=== PATIENT | male | born 1965 | race Caucasian/White ===

== ENCOUNTER → 2017-09-06 15:26 | Outpatient (CLI) | payer MEDICAID, SELFPAY ==
--- NOTE | 2017-09-06 15:34 | XR_ITS ---
XR pelvis min 3V Ordering Physician: Garrett Pulido Patient Age: 52 years: Male HISTORY: ITS.REASON: RT GROIN PAIN Groin pain pelvic pain. Fell last week. TECHNIQUE: AP pelvis radiograph COMPARISON :. Right hip from 2011 FINDINGS Right hip intact stable since 2010. Hip joint space well maintained. Left hip included and unremarkable. Symmetric. Trace hypertrophic ridging superior rim of acetabulum. Unimpressive. The sacrum and iliac bone intact. Pubis and superior and inferior ramus appear intact. Moderate stool is seen to IMPRESSION: Osseous pelvis intact. AP view of hips intact.
== END ==
PROVIDERS: PCP Internal Medicine; Visit Provider Internal Medicine
DX: R10.31 Right lower quadrant pain (principal)
CPT/HCPCS: 72190

== ENCOUNTER 2017-10-19 06:36 | Day surgery (SDC) | payer MEDICAID, SELFPAY ==
[2017-10-19] VITALS (14 sets, daily range): BP systolic 114–143; BP diastolic 72–92; PULSE 61–88; RESP 12–18; TEMP 36.6; O2SAT 93–98; BMI 74.7
--- NOTE | 2017-10-19 08:18 | HMH.SCOPE ---
- Procedure: Date: 10/19/17 Procedure Performed:: Total colonoscopy to terminal ileum with polypectomy by hot snare and biopsy forceps at four locations Indications:: Patient is a 52-year-old white male. He was referred for colonoscopy. He has never had prior colonoscopy. He states that he has a lifelong history of hemorrhoid issues characterized as bleeding. He had significant bleeding recently after he had developed a pulled groin muscle strain. He does have a family history of colon cancer. Performing Provider:: Nura Mcgregor MD Referring Provider:: Garrett Pulido MD Sedation:: Versed 13 mg, fentanyl 200 mcg. Procedure:: Consent was obtained the patient was taken to same-day surgery endoscopy room. He was positioned in a lateral decubitus position. Anesthesia was achieved with titration of Versed and fentanyl. Digital examination was performed which revealed prominent internal hemorrhoids. Variable stiffness Olympus colonoscope was inserted via the anus. Within the rectum retroflexion was performed which revealed several moderately large adenomatous polyps. Colonoscope was advanced through the colon to the cecum without difficulty. Ileocecal valve and appendiceal orifice were identified. Colonoscope was advanced into the terminal ileum which appeared grossly normal. Colonoscope was withdrawn through the colon with careful surveillance. Please note that there was a small adenomatous appearing polyp in the cecum removed with hot snare. In the sigmoid colon there is a mild irregularity and this was biopsied labeled sigmoid lesion. In the proximal rectum there was moderate adenomatous appearing polyp removed with hot snare. In the distal rectum merely several centimeters above the dentate line there were a couple of moderate sized adenomatous appearing polyps removed with hot snare. One of these just inside the anal verge required completion and removal with hot biopsy forceps. There were a couple small distal rectal polyps removed with hot snare as well. He did have some prolapsing hemorrhoids. Colonoscope was withdrawn. Findings:: Several polyps, mostly rectal Prolapsing internal hemorrhoids Recommendations:: Likely plan for repeat colonoscopy within 3 years. Pending pathology. Bleeding likely from hemorrhoids. Complications:: None Estimated blood obtained (mL): 5
== END 2017-10-19 08:54 | disposition home or self-care (01) ==
LOC: OUTP 06:37
PROVIDERS: PCP Internal Medicine; Visit Provider Surgery
PROC: 0DJD8ZZ Inspection of Lower Intestinal Tract, Via Natural or Artificial Opening Endoscopic (ICD-10-PCS; CPT 45385; principal; 2017-10-19 07:30)
DX: Z12.11 Encounter for screening for malignant neoplasm of colon (principal); Z80.0 Family history of malignant neoplasm of digestive organs; K63.5 Polyp of colon; K62.1 Rectal polyp; K64.8 Other hemorrhoids
CPT/HCPCS: 45385; 45384; 99152; 99153

== ENCOUNTER → 2018-08-24 07:02 | Outpatient (CLI) | payer MEDICAID, SELFPAY ==
[2018-08-24 08:16] LABS: Alanine Aminotransferase 61 U/L (12-78); Albumin Level 4.1 gm/dL (3.4-5.0); Alkaline Phosphatase 100 U/L (46-116); Aspartate Amino Transferase 28 U/L (15-37); Bilirubin,Direct 0.2 mg/dL (0.0-0.2); Bilirubin,Indirect 0.9 mg/dL (0.0-0.9); Bilirubin,Total 1.1 mg/dL (0.2-1.0); Chol/HDL Ratio 5.8 (1-3.5); Cholesterol 157 mg/dL (140-200); HDL Cholesterol 27 mg/dL (27-67); LDL Cholesterol 69 mg/dL (0-130); Total Protein,Serum 6.8 gm/dL (6.4-8.2); Triglycerides 305 mg/dL (30-200); VLDL Cholesterol 61 mg/dL (0-40)
== END ==
PROVIDERS: Visit Provider Nurse Practitioner Acute Care
DX: E78.00 Pure hypercholesterolemia, unspecified (principal)
CPT/HCPCS: 36415; 80061; 80076

== ENCOUNTER 2019-12-21 12:41 | Emergency (ER) | payer MEDICAID, SELFPAY ==
[2019-12-21 12:50] VITALS: BP 152/88; PULSE 88; RESP 16; TEMP 36.8; O2SAT 96; BMI 33.9
--- NOTE | 2019-12-21 12:55 | XR_ITS ---
PROCEDURE: XR KNEE RT 3V CLINICAL INDICATION: pain COMPARISON: XR KNEE LT 3V from 12/21/2019 FINDINGS: No fracture or dislocation. No lytic or blastic change. There is normal mineralization. There is very slight decrease in the joint space medially suggesting mild osteoarthritic change. There is a small suprapatellar effusion Other findings:A nonspecific small calcific density is present in the popliteal region and may be due to small vascular calcification IMPRESSION: Mild osteoarthritic change with small suprapatellar effusion Dictated by: Junito Carrasquillo MD 12/21/2019 14:04 Electronically signed by Junito Carrasquillo MD in [place] 12/21/2019 14:04
--- NOTE | 2019-12-21 12:55 | XR_ITS ---
PROCEDURE: XR KNEE LT 3V CLINICAL INDICATION: pain, swelling The COMPARISON: XR KNEE RT 3V from 12/21/2019 FINDINGS: No fracture or dislocation. No lytic or blastic change. There is normal mineralization. The joint spaces are well-preserved. No significant degenerative/arthritic changes. No erosive changes evident. Other findings:None. IMPRESSION: Negative left knee Dictated by: Junito Carrasquillo MD 12/21/2019 14:03 Electronically signed by Junito Carrasquillo MD in [place] 12/21/2019 14:03
--- NOTE | 2019-12-21 14:31 | HMH.EDGENADL ---
ED Disposition Clinical Impression: Osteoarthritis of knees, bilateral Disposition: Home, Self-Care Condition on Discharge: Good Instructions: DI for Chronic Pain -- Adult Referrals: Garrett Pulido [Primary Care Provider] - - Critical Care Critical Care Time: No Attestation: On 12/21/19, the high probability of a clinically significant, sudden or life threatening deterioration of the following system(s) required my full and direct attention, intervention and personal management. The time I documented below is in addition to time spent performing reported procedures but includes the following listed in this critical care notation. Medical Decision Making - Medical Records Medical records reviewed: Yes: I reviewed the patient's medical records. - Toribio Inquiry Pt receiving controlled substance: No Vital Signs: 12/21/19 12:50 Temperature 98.2 F Temperature Source Oral Pulse Rate [Left Radial] 88 Respiratory Rate 16 Blood Pressure [Right Arm] 152/88 H Blood Pressure Mean [Right Arm] 109 Blood Pressure Position [Right Arm] Sitting 02 Sat by Pulse Oximetry 96 Oxygen Delivery Method Room Air - Lab Data Lab results reviewed: Yes: I reviewed the patient's lab results. Orders (Tests/Meds): ED MEDICATIONS Discontinued Medications Generic Name Dose Route Start Last Admin Trade Name Freq PRN Reason Stop Dose Admin Ketorolac Tromethamine 60 mg 12/21/19 13:31 12/21/19 13:32 Toradol 60mg/2ml Vial IM 12/21/19 13:32 60 mg ONCE ONE Administration - Radiology Data #1 Image(s): Knee Image Reviewed: Yes I reviewed the patient's radiology image w/the ED provider Preliminary Findings: Normal/NAD General Adult HPI - General Chief complaint: PAIN Stated complaint: pain in both legs Time Seen by Provider: 12/21/19 14:30 Mode of Arrival: Wheelchair Source of Information: Patient Limitations: No Limitations Description of Symptoms (Recalled from ER Triage Doc. by RN): to ed per pvt car with c/o madiha knee pain states chronic problem but worse over the last 3 weeks building a house . pt took tramadol from friend lastnight with no relief - History of Present Illness HPI narrative: 54-year-old gentleman comes in with bilateral knee pain. He has had chronic knee pain for quite some time secondary to arthritic conditions. 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 Presently today he does state that there is a feel swollen no redness or erythema they do not feel hot patient denies any fevers but he does state his pain is about 6 out of 10 classifies it is a full sensation. Relief is not ambulation exacerbating factors include any sort of movement or ambulation. Patient denies any other symptoms. - Related Data Home Medications Medication Instructions Recorded Confirmed famotidine 20 mg tablet 20 mg PO QHS 09/24/17 04/01/18 ibuprofen 600 mg tablet 600 mg PO Q4-6H PRN 09/24/17 04/01/18 lisinopril 20 1 tab PO BID 09/24/17 04/01/18 mg-hydrochlorothiazide 12.5 mg tablet Aspirin [Aspir 81] 81 mg PO DAILY 04/01/18 04/01/18 Atorvastatin Calcium [Atorvastatin 40 mg PO HS 04/01/18 04/01/18 40mg Tab] amlodipine 5 mg tablet 5 mg PO DAILY 04/08/18 Previous Rx's Medication Instructions Recorded bisoprolol fumarate 5 mg tablet 5 mg PO DAILY #30 tab 04/08/18 clopidogrel 75 mg tablet 75 mg PO DAILY #30 tab 04/08/18 pantoprazole 40 mg tablet,delayed 40 mg PO DAILY #30 tab 04/08/18 release Allergies Allergy/AdvReac Type Severity Reaction Status Date / Time No Known Allergies Allergy Verified 11/08/17 09:11 [facility] History - Hepatitis A Screen Drug use history?: No High risk sexual behaviors?: No History of sexually transmitted infection?: No Currently employed?: No Childcare worker?: No Do you have indoor plumbing?: Yes Do you have electricity?: Yes Attestation statement:: Tiffanie patiiliana
[2019-12-21 14:57] VITALS: BP 149/74; PULSE 74; RESP 16; TEMP 36.6; O2SAT 98
== END 2019-12-21 14:59 | disposition home or self-care (01) ==
PROVIDERS: Emergency Provider Family Medicine; PCP Internal Medicine
DX: M17.0 Bilateral primary osteoarthritis of knee (principal); I10 Essential (primary) hypertension; K21.9 Gastro-esophageal reflux disease without esophagitis; Z79.899 Other long term (current) drug therapy; F17.210 Nicotine dependence, cigarettes, uncomplicated
CPT/HCPCS: 20610 ×2; 73562; 96372; 99282

== ENCOUNTER → 2020-02-13 11:49 | Outpatient (CLI) | payer MEDICAID, SELFPAY ==
--- NOTE | 2020-02-13 12:03 | XR_ITS ---
PROCEDURE: XR KNEE RT 4V CLINICAL INDICATION: right knee pain COMPARISON: XR KNEE LT 3V from 12/21/2019 FINDINGS: There is mild narrowing of the medial compartment. There is no fracture or dislocation and the soft tissues are unremarkable. IMPRESSION: Mild narrowing of the medial compartment Dictated by: Moses Castillo 02/13/2020 16:37 Electronically signed by Moses Castillo in [place] 02/13/2020 16:37
== END ==
PROVIDERS: PCP Internal Medicine; Visit Provider Orthopaedic Surgery
DX: M25.561 Pain in right knee (principal)
CPT/HCPCS: 73564

== ENCOUNTER → 2020-02-21 13:41 | Outpatient (CLI) | payer MEDICAID, SELFPAY ==
--- NOTE | 2020-02-21 13:53 | XR_ITS ---
PROCEDURE: XR ORBIT BILATERAL MIN 4V CLINICAL INDICATION: RULE OUT METAL FOREIGN BODY FOR MRI COMPARISON: No exams were available for comparison TECHNIQUE: AP views are obtained of the orbits with the patient looking up and down. FINDINGS: No radio opaque foreign bodies evident. IMPRESSION: No radio opaque orbital foreign body identified. Dictated by: Junito Carrasquillo MD 02/21/2020 14:20 Electronically signed by Junito Carrasquillo MD in [place] 02/21/2020 14:20
== END ==
PROVIDERS: PCP Internal Medicine; Visit Provider Orthopaedic Surgery
DX: H05.53 Retained (old) foreign body following penetrating wound of bilateral orbits (principal)
CPT/HCPCS: 70200

== ENCOUNTER → 2020-03-25 15:40 | Outpatient (CLI) | payer BC, SELFPAY ==
--- NOTE | 2020-03-25 15:40 | MR_ITS ---
PROCEDURE: MR KNEE RT WO CON CLINICAL INDICATION: evaluate for meniscal tear Swelling [id number], medial sided knee pain, knee instability, no injury. COMPARISON: No exams were available for comparison TECHNIQUE: Routine multiplanar multi echo sequences are performed without gadolinium enhancement. FINDINGS: The cruciate ligaments are intact. The collateral ligaments appear intact. Patellar tendon has an unremarkable appearance. There is slight increased T2 signal involving the distal aspect of the quadriceps tendon and could be due to old injury versus tendinopathy/tendinosis. There is abnormal signal intensity involving the posterior horn of the medial meniscus with irregularity of the tibial surface of the meniscus suggesting a meniscal tear. The patellar cartilage is preserved. There is a small knee joint effusion and a small Heard's cyst which measures 2 cm. The body of medial meniscus is slightly extruded medially with mild osteoarthritic changes of the medial compartment of the knee. IMPRESSION: 1. There is some irregularity of the tibial surface of the posterior horn of the medial meniscus which could represent a small meniscal tear 2. Mild osteoarthritic change of the medial compartment with medial extrusion of the body of the medial meniscus with small knee joint effusion Dictated b Junito Carrasquillo MD 03/26/2020 18:37 Junito Carrasquillo MD in [place] 03/26/2020 18:37
== END ==
PROVIDERS: PCP Internal Medicine; Visit Provider Orthopaedic Surgery
DX: M25.561 Pain in right knee (principal); S83.206A Unspecified tear of unspecified meniscus, current injury, right knee, initial encounter; G89.29 Other chronic pain
CPT/HCPCS: 73721

== ENCOUNTER 2020-05-05 17:13 | Emergency (ER) | payer BC, SELFPAY ==
[2020-05-05 17:23] VITALS: BP 126/75; PULSE 95; RESP 16; O2SAT 98; BMI 34.3
[2020-05-05 17:39] VITALS: BP 124/76; PULSE 97; RESP 20; TEMP 36.7; O2SAT 98; BMI 34.2
--- NOTE | 2020-05-05 18:02 | HMH.EDUTC ---
[facility] [place] [facility] Disposition Clinical Impression: Knee pain Qualifiers: Chronicity: unspecified Laterality: right Qualified Code(s): M25.561 - Pain in right knee Disposition: Home, Self-Care Condition on Discharge: Good Instructions: Meniscal Tear, DI for Meniscal Tear, How To Perform RICE (Rest, Ice, Compress, Elevate) Additional Instructions: *RICE, Rest the extremity, Ice 15-20 minutes 3-4 times daily, Compress- wear the michael wrap as discussed as much as possible to help reduce swelling and pain, Elevate the extremity when at rest *Michael wrap is for support and help control swelling, use it except in the shower. Be sure that is not to tight but not to loose either *Elevate when resting *Ibuprofen every 6-8 hours as needed for pain an inflammation. If need something more can take Tylenol in between doses of Ibuprofen to help Immediately follow up with your family doctor for new or worsening of symptoms, or no noticeable improvement over the next 3-5 days Call Orthopedic office tomorrow to get appointment for further treatment and evaluation Follow up with Family Doctor if no improvement or any worsening of symptoms Return if needed Straight to ER If any life threatening symptoms Referrals: Garrett Pulido [Primary Care Provider] - As needed Lay Peterson MD [Physician] - As needed (Call office tomorrow for appointment) Time of Disposition: 18:16 Medical Decision Making - Toribio Inquiry Pt receiving controlled substance: No Toribio was queried for this patient: No Vital Signs: 05/05/20 17:23 05/05/20 17:39 05/05/20 18:17 Temperature 98.0 F 98.0 F Temperature Source Oral Pulse Rate 97 H Pulse Rate [Left Radial] 95 H 97 H Respiratory Rate 16 20 20 Blood Pressure 124/76 Blood Pressure [Right Arm] 126/75 124/76 Blood Pressure Mean [Right Arm] 92 92 Blood Pressure Source [Right Arm] Automatic Cuff Blood Pressure Position [Right Arm] Sitting Sitting 02 Sat by Pulse Oximetry 98 98 Oxygen Delivery Method Room Air Room Air Orders (Tests/Meds): ED MEDICATIONS Discontinued Medications Generic Name Dose Route Start Last Admin Trade Name Freq PRN Reason Stop Dose Admin Ketorolac Tromethamine 60 mg 05/05/20 18:07 05/05/20 18:16 Toradol 60mg/2ml Vial IM 05/05/20 18:08 60 mg ONCE ONE Administration [facility] [facility] HPI - General Stated complaint: Right knee pain Time Seen by Provider: 05/05/20 18:02 Mode of Arrival: Ambulatory Source of Information: Patient Limitations: No Limitations Description of Symptoms (Recalled from Triage Doc. by RN): PATIENT C/O RIGHT KNEE PAIN THAT STARTED TODAY. HE STATES HE HAS A RECENT HISTORY OF RIGHT KNEE PAIN D/T A TORN MENISCUS. HAS BEEN UNABLE TO FOLLOW UP WITH HIS ORTHO DOCTOR DUE TO HIS DOCTOR BEING OUT OF THE OFFICE HEENT Symptoms (Recalled from RN notes): No Resp Symptoms (Recalled from RN notes): No Skin Symptoms (Recalled from RN notes): No MS Symptoms (Recalled from RN notes): Yes Functional Status (Recalled from RN notes): WNL - History of Present Illness Provider Complaint: Patient states that he had a MRI done in [place] and was told by his PCP he had a Meniscus tear and he has been waiting to be contacted by Ortho for appointment for follow up State that he has been waiting and not hear back from anyone with an appointment States that for the last several days his knee has been hurting so he come in today to see if he could get a shot to get him through until he can see PCP tomorrow or call orthopedics - Related Data Home Medications Medication Instructions Recorded Confirmed famotidine 20 mg tablet 20 mg PO QHS 09/24/17 02/13/20 ibuprofen 600 mg tablet 600 mg PO Q4-6H PRN 09/24/17 02/13/20 lisinopril 20 1 tab PO BID 09/24/17 02/13/20 mg-hydrochlorothiazide 12.5 mg tablet amlodipine 5 mg tablet 5 mg PO DAILY 04/08/18 02/13/20 allopurinol 300 mg tablet 300 mg PO DAILY 02/13/20 02/13/20 carvedilol 25 mg tablet 25 mg PO BID 02/13/20 02/13/20 Previous R
[2020-05-05 18:17] VITALS: BP 124/76; PULSE 97; RESP 20; TEMP 36.7; O2SAT 98
== END 2020-05-05 18:20 | disposition home or self-care (01) ==
PROVIDERS: Emergency Provider Nurse Practitioner; PCP Internal Medicine
DX: M25.561 Pain in right knee (principal); K21.9 Gastro-esophageal reflux disease without esophagitis; I10 Essential (primary) hypertension; F17.210 Nicotine dependence, cigarettes, uncomplicated
CPT/HCPCS: 29505; 96372; 99203

== ENCOUNTER → 2020-12-28 07:53 | Outpatient (CLI) | payer OTHER, SELFPAY ==
[2020-12-28 08:15] LABS: Basophils # 0.1 K/mm3 (0-0.2); Basophils % 0.8 % (0.1-2.0); Eosinophils # 0.3 K/mm3 (0.0-0.4); Eosinophils % 3.6 % (0.1-12.0); Hematocrit 51.4 % (42.0-52.0); Hemoglobin 16.9 g/dL (14.1-18.0); Lymphocytes # 2.3 K/mm3 (0.7-4.5); Mean Corpuscular HGB Conc 32.9 g/dL (31.8-35.4); Mean Corpuscular Hemoglobin 30.9 pg (27.0-31.2); Mean Corpuscular Volume 93.9 fl (80-94); Mean Platelet Volume 7.3 fl (7.4-10.4); Monocytes # 0.5 K/mm3 (0.1-1.0); Monocytes % 5.5 % (1.7-9.3); Neutrophils # 5.8 K/mm3 (1.8-7.8); Neutrophils % 65.1 % (37.0-80.0); Platelet Count 189 K/mm3 (142-424); Red Blood Count 5.47 M/mm3 (4.60-6.20); Red Cell Distribution Width 13.2 % (11.5-17.5)
--- NOTE | 2020-12-28 08:17 | ECG_ITS ---
APPROVED REPORT Exam: Resting ECG HR:75 bpm ECG Measurements Heart Rate 75 AXES OK 158 P QRSd 92 QRS 195 QT 398 T 133 QTc 444 Conclusion Normal sinus rhythm Right superior axis deviation Incomplete right bundle branch block Abnormal ECG Electronically signed by : Yong Huang, 12/29/2020 20:29:40
[2020-12-28 09:02] LABS: Alanine Aminotransferase 21 U/L (12-78); Albumin Level 3.1 g/dl (3.5-5.0); Alkaline Phosphatase 90 U/L (38-126); Anion Gap 5.7 mEq/L (5-15); Aspartate Amino Transferase 27 U/L (17-59); Bilirubin,Direct 0.1 mg/dl (0.0-0.4); Bilirubin,Indirect 0.9 mg/dL (0.0-0.9); Bilirubin,Unconjugated 0.8 mg/dL (0.0-1.1); Blood Urea Nitrogen 11 mg/dl (9-20); Calcium 8.3 mg/dl (8.4-10.2); Carbon Dioxide 31 mmol/L (22.0-30.0); Chloride 106 mmol/L (98-107); Chol/HDL Ratio 7.6 (1-3.5); Cholesterol 257 mg/dl (140-200); Estimated Glomerular Filt Rate 117 ml/min (>60); GFR (African American) 141 ML/MIN (>60); Glucose 115 mg/dl (74-100); HDL Cholesterol 34 mg/dl (40-60); Potassium 3.7 mmoL/L (3.5-5.1); Sodium 139 mmol/L (136-145); Total Protein,Serum 5.5 g/dl (6.3-8.2); Triglycerides 389 mg/dl (30-150); VLDL Cholesterol 78 mg/dL (0-40)
== END ==
PROVIDERS: Visit Provider Internal Medicine Interventional Cardiology
DX: E78.5 Hyperlipidemia, unspecified (principal); R94.31 Abnormal electrocardiogram [ECG] [EKG]
CPT/HCPCS: 36415; 80048; 80061; 80076; 85025; 93005

== ENCOUNTER 2021-02-12 10:01 | Emergency (ER) | payer OTHER, SELFPAY ==
[2021-02-12 10:05] VITALS: BP 148/98; PULSE 80; RESP 19; TEMP 36.9; O2SAT 98; BMI 35.2
--- NOTE | 2021-02-12 10:33 | HMH.EDUTC ---
[facility] [place] Disposition Clinical Impression: Low back pain Qualifiers: Chronicity: unspecified Back pain laterality: left Sciatica presence: with sciatica Sciatica laterality: sciatica of left side Qualified Code(s): M54.42 - Lumbago with sciatica, left side Sciatica Qualifiers: Laterality: left Qualified Code(s): M54.32 - Sciatica, left side Disposition: Home, Self-Care Condition on Discharge: Good Instructions: DI for Low Back Pain, DI for Sciatica Additional Instructions: Go home and rest. It would be best if you rested tomorrow too. No heavy lifting. No twisting. Take the oral medications as directed. The muscle relaxer (cyclobenzaprine-flexeril) will make you drowsy, so don't drive or operate heavy machinery after taking it. Don't start the oral steroids (medrol dose pack) until tomorrow, since you had the shots in here today. Follow up with your regular doctor. GO TO THE ER FOR ANY WORSENING SYMPTOMS OR CONCERN, ESPECIALLY BOWEL OR BLADDER ISSUES, SADDLE AREA NUMBNESS, FEVER, ETC Prescriptions: Cyclobenzaprine HCl [Cyclobenzaprine 10mg Tab] 10 mg PO BIDP PRN #20 tab PRN Reason: Muscle Spasm Transmission Status: Received by [id number] methylPREDNISolone [Medrol] 4 mg PO DIRECTED 6 Days #21 tab.ds.pk Transmission Status: Received by [id number] Referrals: Garrett Pulido [Primary Care Provider] - Time of Disposition: 10:56 Medical Decision Making - Medical Records Medical records reviewed: No: I reviewed the patient's medical records. - Toribio Inquiry Pt receiving controlled substance: No Vital Signs: 02/12/21 10:05 02/12/21 10:45 Temperature 98.4 F 98.4 F Temperature Source Oral Pulse Rate 80 Pulse Rate [Right Brachial] 80 Respiratory Rate 19 19 Blood Pressure 148/98 H Blood Pressure [Right Arm] 148/98 H Blood Pressure Mean [Right Arm] 114 Blood Pressure Source [Right Arm] Automatic Cuff Blood Pressure Position [Right Arm] Sitting 02 Sat by Pulse Oximetry 98 Oxygen Delivery Method Room Air Orders (Tests/Meds): ED MEDICATIONS Discontinued Medications Generic Name Dose Route Start Last Admin Trade Name Freq PRN Reason Stop Dose Admin Ketorolac Tromethamine 60 mg 02/12/21 10:38 02/12/21 10:39 Ketorolac 60mg/2ml Vial IM 02/12/21 10:39 60 mg ONCE ONE Administration Methylprednisolone Sodium Succinate 125 mg 02/12/21 10:38 02/12/21 10:39 Methylprednisolone Sod Succ 125mg Vial IM 02/12/21 10:39 125 mg ONCE ONE Administration [facility] [place] HPI - General Stated complaint: possible pulled muscle in back, unknown origin Time Seen by Provider: 02/12/21 10:33 Mode of Arrival: Ambulatory Source of Information: Patient Limitations: No Limitations Description of Symptoms (Recalled from Triage Doc. by RN): PATIENT C/O PAIN IN LOWER BACK THAT RADIATES DOWN LEFT LEG. REPORTS PAIN STARTED WHEN HE BENT OVER WHILE WEED EATING YESTERDAY AFTERNOON HEENT Symptoms (Recalled from RN notes): No Resp Symptoms (Recalled from RN notes): No Skin Symptoms (Recalled from RN notes): No MS Symptoms (Recalled from RN notes): Yes Functional Status (Recalled from RN notes): WNL - History of Present Illness Provider Complaint: He states that since yesterday he has had low back pain that radiates down his left leg. - Related Data Home Medications Medication Instructions Recorded Confirmed famotidine 20 mg tablet 20 mg PO QHS 09/24/17 05/24/20 ibuprofen 600 mg tablet 600 mg PO Q4-6H PRN 09/24/17 05/24/20 lisinopril 20 1 tab PO BID 09/24/17 05/24/20 mg-hydrochlorothiazide 12.5 mg tablet amlodipine 5 mg tablet 5 mg PO DAILY 04/08/18 05/24/20 allopurinol 300 mg tablet 300 mg PO DAILY 02/13/20 05/24/20 carvedilol 25 mg tablet 25 mg PO BID 02/13/20 05/24/20 Previous Rx's Medication Instructions Recorded bisoprolol fumarate 5 mg tablet 5 mg PO DAILY #30 tab 04/08/18 clopidogrel 75 mg tablet 75 mg PO DAILY #30 tab 04/08/18 Cyclobenzaprine H
[2021-02-12 10:45] VITALS: BP 148/98; PULSE 80; RESP 19; TEMP 36.9; O2SAT 98
== END 2021-02-12 11:00 | disposition home or self-care (01) ==
PROVIDERS: Emergency Provider Nurse Practitioner Family; PCP Internal Medicine
DX: M54.42 Lumbago with sciatica, left side (principal); I10 Essential (primary) hypertension; K21.9 Gastro-esophageal reflux disease without esophagitis; Z79.899 Other long term (current) drug therapy
CPT/HCPCS: 96372; 99202; G0463

== ENCOUNTER 2021-02-14 15:34 | Emergency (ER) | payer OTHER, SELFPAY ==
[2021-02-14] VITALS (10 sets, daily range): BP systolic 151–178; BP diastolic 93–113; PULSE 74–85; RESP 14–20; TEMP 36.7–36.8; O2SAT 95–98; BMI 35.9
--- NOTE | 2021-02-14 15:35 | HMH.EDGENADL ---
ED Disposition Clinical Impression: Muscle spasm Disposition: Home, Self-Care Condition on Discharge: Good Referrals: Garrett Pulido [Primary Care Provider] - 3 days Time of Disposition: 17:39 - Critical Care Critical Care Time: No Attestation: On , the high probability of a clinically significant, sudden or life threatening deterioration of the following system(s) required my full and direct attention, intervention and personal management. The time I documented below is in addition to time spent performing reported procedures but includes the following listed in this critical care notation. Medical Decision Making - Medical Records Medical records reviewed: Yes: I reviewed the patient's medical records. - Toribio Inquiry Pt receiving controlled substance: No Vital Signs: 02/14/21 15:34 02/14/21 17:03 02/14/21 17:06 Temperature 98.1 F Temperature Source Oral Pulse Rate 85 78 Pulse Rate [Right Radial] 82 Respiratory Rate 18 20 14 Blood Pressure 178/113 H 164/104 H Blood Pressure [Right Arm] 163/103 H Blood Pressure Mean 139 124 Blood Pressure Mean [Right Arm] 123 Blood Pressure Source [Right Arm] Manual Cuff/ Doppler Blood Pressure Position Blood Pressure Position [Right Arm] Supine 02 Sat by Pulse Oximetry 97 98 98 Oxygen Delivery Method Room Air Room Air Room Air 02/14/21 17:11 Temperature Temperature Source Pulse Rate 75 Pulse Rate [Right Radial] Respiratory Rate 14 Blood Pressure 151/105 H Blood Pressure [Right Arm] Blood Pressure Mean Blood Pressure Mean [Right Arm] Blood Pressure Source [Right Arm] Blood Pressure Position Supine Blood Pressure Position [Right Arm] 02 Sat by Pulse Oximetry 98 Oxygen Delivery Method Room Air Orders (Tests/Meds): ED MEDICATIONS Discontinued Medications Generic Name Dose Route Start Last Admin Trade Name Fantasmaq PRN Reason Stop Dose Admin Ketamine HCl 35 mg 02/14/21 16:29 02/14/21 16:56 Ketamine 500mg/10ml Vial IV 02/14/21 16:30 35 mg ONCE ONE Administration Ketorolac Tromethamine 30 mg 02/14/21 15:44 02/14/21 15:53 Ketorolac 30mg/Ml Vial IM 02/14/21 15:45 30 mg ONCE ONE Administration Orphenadrine Citrate 60 mg 02/14/21 15:44 02/14/21 15:53 Orphenadrine Citrate 60mg/2ml Vial IM 02/14/21 15:45 60 mg ONCE ONE Administration Medical Decision Narrative: 55yo M evaluated for low back pain. Patient is acutely uncomfortable on initial evaluation. He is moving all extremities and answers questions appropriately. He has 2+ distal pulses. He is able to move all extremities. Patient is provided Norflex and Toradol IM. Patient states treatment has not been effective at all. His girlfriend is at bedside and concerned he is going to have a stroke or heart attack if he does not get something else for pain. The patient is rolling around shouting. Of note, he complains of pain in his left lower leg but is kicking the left lower leg along with the right leg to demonstrate his pain. Patient's heart rate on the monitor is currently 82 and his O2 saturations are 100%. His blood pressure is elevated but if he continues to flex and use his left arm to pull on the bed rails. Patient was treated with IV ketamine 35 mg. He feels much better at this time. Have discussed with the patient that I do not treat sciatica or muscle spasms with opiates as they are not very effective. General Adult HPI - General Stated complaint: L sided sciatic pain Time Seen by Provider: 02/14/21 15:35 Mode of Arrival: EMS - History of Present Illness HPI narrative: 55yo M presents the emergency department via EMS secondary to left sciatic pain. Patient reports he was seen at the urgent treatment center yesterday and provided pain shot and a steroid shot with no improvement in his symptoms. Him to chiropractor yesterday and today but they were unable to adjust him secondary to pain and muscle spasm. He reports today
--- NOTE | 2021-02-14 16:26 | PC.NURSE ---
pt family came to nurses station reporting the medication given to pt has not improved pts pain. Notified ER MD, no new orders obtained
== END 2021-02-14 17:58 | disposition home or self-care (01) ==
PROVIDERS: Emergency Provider Family Medicine; PCP Internal Medicine
DX: M62.838 Other muscle spasm (principal); M54.42 Lumbago with sciatica, left side; I10 Essential (primary) hypertension; K21.9 Gastro-esophageal reflux disease without esophagitis; F17.210 Nicotine dependence, cigarettes, uncomplicated; Z79.899 Other long term (current) drug therapy
CPT/HCPCS: 96374; 99282

== ENCOUNTER 2021-02-17 09:54 | Emergency (ER) | payer OTHER, SELFPAY ==
[2021-02-17 09:54] VITALS: BP 123/85; PULSE 79; RESP 18; TEMP 36.7; O2SAT 97; BMI 35.2
--- NOTE | 2021-02-17 09:55 | XR_ITS ---
PROCEDURE: XR PELVIS 1-2V CLINICAL INDICATION: back pain, non-traumatic COMPARISON: DX PELCM XR pelvis min 3V from 09/06/2017 TECHNIQUE: XR Pelvis AP View FINDINGS: No fracture or dislocation is evident. No significant degenerative change. No lytic or blastic change. IMPRESSION: No acute findings. Dictated by: Junito Carrasquillo MD 02/17/2021 10:40 Junito Carrasquillo MD in [place] 02/17/2021 10:40
--- NOTE | 2021-02-17 09:55 | XR_ITS ---
PROCEDURE: XR LUMBAR SPINE 2-3V CLINICAL INDICATION: back pain, non-traumatic COMPARISON: No exams were available for comparison FINDINGS: No fracture or dislocation. There is minimal anterolisthesis of L4 on L5 of 2 mm. Minimal endplate osteophytes are present at L3-L4. there is a small calcific density overlying the upper pole of the left kidney at 4 mm and 1 overlying the mid lower pole at 3 mm. IMPRESSION: 1. Mild degenerative changes lumbar spine. 2. Left nephrolithiasis suspected Dictated by: Junito Carrasquillo MD 02/17/2021 10:40 Junito Carrasquillo MD in [place] 02/17/2021 10:40
--- NOTE | 2021-02-17 09:56 | HMH.EDGENADL ---
ED Disposition Clinical Impression: Radicular pain Disposition: Home, Self-Care Condition on Discharge: Good Referrals: Garrett Pulido [Primary Care Provider] - () Time of Disposition: 11:08 - Critical Care Critical Care Time: No Attestation: On , the high probability of a clinically significant, sudden or life threatening deterioration of the following system(s) required my full and direct attention, intervention and personal management. The time I documented below is in addition to time spent performing reported procedures but includes the following listed in this critical care notation. Medical Decision Making - Medical Records Medical records reviewed: Yes: I reviewed the patient's medical records. - Toribio Inquiry Pt receiving controlled substance: No Vital Signs: 02/17/21 09:54 02/17/21 10:49 Temperature 98.1 F Temperature Source Oral Pulse Rate 78 Pulse Rate [Right] 79 Respiratory Rate 18 18 Blood Pressure 132/86 Blood Pressure [Right Arm] 123/85 Blood Pressure Mean [Right Arm] 97 02 Sat by Pulse Oximetry 97 98 Oxygen Delivery Method Room Air Room Air Orders (Tests/Meds): ED MEDICATIONS Discontinued Medications Generic Name Dose Route Start Last Admin Trade Name Freq PRN Reason Stop Dose Admin Ketorolac Tromethamine 15 mg 02/17/21 11:06 02/17/21 11:13 Ketorolac 30mg/Ml Vial IM 02/17/21 11:07 15 mg ONCE ONE Administration Orphenadrine Citrate 30 mg 02/17/21 11:06 02/17/21 11:12 Orphenadrine Citrate 60mg/2ml Vial IM 02/17/21 11:07 30 mg ONCE ONE Administration - Radiology Data #1 Image(s): Pelvis, Hip Image Reviewed: Yes I reviewed the patient's radiology results, Yes I reviewed the patient's radiology image Preliminary Findings: Normal/NAD Medical Decision Narrative: 55yo M evaluated for continued radicular pain of his left lower extremity. Patient has normal movement about all joints in his lower left extremity. He has 2+ dorsalis pedis and posterior tibialis pulse. Sensation is intact. The limb is not cold. X-rays are obtained despite no traumatic indication. These x-rays are negative on my read as well as over read by radiology. We will retreat the patient with Toradol and Norflex. Will call patient's PCP, Dr. Pulido, to arrange close follow-up and further evaluation. Patient is very angry with a level of care he is received in the fact that he cannot be seen by his PCP today. Patient states has been coming here for 45 years and has never received good care. Case discussed with Dr. Pulido. He agrees there is no indication for emergent MRI. Request the patient call his office to arrange a follow-up appointment. General Adult HPI - General Stated complaint: Back Pain Time Seen by Provider: 02/17/21 09:56 Mode of Arrival: EMS - History of Present Illness HPI narrative: 55yo M returns to the emergency department for ongoing left lower extremity pain. Patient reports his symptoms have not improved after being seen in the emergency department few days ago. He reports going to his PCPs office today and called to be seen but they stated they could not help him at that time because he was lying in the parking lot. He reports taking muscle relaxers at home without improvement. Denies any new trauma. - Related Data Home Medications Medication Instructions Recorded Confirmed famotidine 20 mg tablet 20 mg PO QHS 09/24/17 05/24/20 ibuprofen 600 mg tablet 600 mg PO Q4-6H PRN 09/24/17 05/24/20 lisinopril 20 1 tab PO BID 09/24/17 05/24/20 mg-hydrochlorothiazide 12.5 mg tablet amlodipine 5 mg tablet 5 mg PO DAILY 04/08/18 05/24/20 allopurinol 300 mg tablet 300 mg PO DAILY 02/13/20 05/24/20 carvedilol 25 mg tablet 25 mg PO BID 02/13/20 05/24/20 Previous Rx's Medication Instructions Recorded bisoprolol fumarate 5 mg tablet 5 mg PO DAILY #30 tab 04/08/18 clopidogrel 75 mg tablet 75 mg PO DAILY #30 tab 04/08/18 Cyclobenzaprine HCl
[2021-02-17 10:49] VITALS: BP 132/86; PULSE 78; RESP 18; O2SAT 98
[2021-02-17 11:15] VITALS: BP 141/85; PULSE 74; RESP 16; TEMP 36.7; O2SAT 98
== END 2021-02-17 11:35 | disposition home or self-care (01) ==
PROVIDERS: Emergency Provider Family Medicine; PCP Internal Medicine
DX: M54.16 Radiculopathy, lumbar region (principal); I10 Essential (primary) hypertension; K21.9 Gastro-esophageal reflux disease without esophagitis; F17.210 Nicotine dependence, cigarettes, uncomplicated
CPT/HCPCS: 72100; 72170; 99282

== ENCOUNTER 2021-11-24 13:15 | Emergency (ER) | payer OTHER, MEDICARE, SELFPAY ==
[2021-11-24 14:32] VITALS: BP 0/0; PULSE 0; RESP 0; TEMP -17.7; TEMP 0
== END 2021-11-24 14:32 | disposition left against medical advice (07) ==
LOC: UTC 13:17
PROVIDERS: Emergency Provider Nurse Practitioner Family; PCP Pediatrics
DX: Z53.21 Procedure and treatment not carried out due to patient leaving prior to being seen by health care provider (principal)

== ENCOUNTER → 2022-02-21 08:13 | Outpatient (CLI) | payer MEDICARE, OTHER, SELFPAY ==
[2022-02-21 09:12] LABS: Chloride 106 mmol/L (98-107); Potassium 3.9 mmoL/L (3.5-5.1); Sodium 135 mmol/L (136-145)
[2022-02-21 09:15] LABS: Anion Gap 7.9 mEq/L (5-15); Blood Urea Nitrogen 17 mg/dl (9-20); Calcium 8.7 mg/dl (8.4-10.2); Carbon Dioxide 25 mmol/L (22.0-30.0); Estimated Glomerular Filt Rate 87 ml/min (>60); GFR (African American) 105 ML/MIN (>60); Glucose 145 mg/dl (74-100)
== END ==
PROVIDERS: Visit Provider Internal Medicine Interventional Cardiology
DX: I10 Essential (primary) hypertension (principal)
CPT/HCPCS: 80048

== ENCOUNTER → 2022-10-21 11:31 | Outpatient (CLI) | payer MEDICARE, OTHER, SELFPAY ==
[2022-10-21 12:47] LABS: Chloride 107 mmol/L (98-107)
[2022-10-21 12:48] LABS: Potassium 4.4 mmoL/L (3.5-5.1); Sodium 136 mmol/L (136-145)
[2022-10-21 12:50] LABS: Blood Urea Nitrogen 27 mg/dl (9-20); Estimated Glomerular Filt Rate 62 ml/min (>60); GFR (African American) 75 ML/MIN (>60)
[2022-10-21 12:51] LABS: Anion Gap 12.4 mEq/L (5-15); Calcium 8.4 mg/dl (8.4-10.2); Carbon Dioxide 21 mmol/L (22.0-30.0); Chol/HDL Ratio 6.9 (1-3.5); Cholesterol 201 mg/dl (140-200); Glucose 109 mg/dl (74-100); HDL Cholesterol 29 mg/dl (40-60)
[2022-10-21 12:53] LABS: Triglycerides 418 mg/dl (30-150)
[2022-10-21 13:00] LABS: NT Pro Brain Natriuretic Pep. 67.3 pg/mL (0-125)
[2022-10-21 13:02] LABS: Direct LDL Cholesterol 109.52 mg/dL (100-129)
== END ==
PROVIDERS: PCP Pediatrics; Visit Provider Internal Medicine Interventional Cardiology
DX: I11.0 Hypertensive heart disease with heart failure (principal); E78.00 Pure hypercholesterolemia, unspecified
CPT/HCPCS: 36415; 80048; 80061; 83880

== ENCOUNTER → 2023-02-01 08:25 | Outpatient (CLI) | payer MEDICARE, OTHER, SELFPAY ==
[2023-02-01 09:55] LABS: Basophils # 0.1 K/mm3 (0-0.2); Basophils % 0.4 % (0.1-2.0); Eosinophils # 0.3 K/mm3 (0.0-0.4); Eosinophils % 2.4 % (0.1-12.0); Hematocrit 45.2 % (42.0-52.0); Hemoglobin 14.9 g/dL (14.1-18.0); Lymphocytes # 2.7 K/mm3 (0.7-4.5); Lymphocytes % 20.7 % (10-50); Mean Corpuscular Hemoglobin 31.7 pg (27.0-31.2); Mean Corpuscular Volume 96.2 fl (80-94); Mean Platelet Volume 8.4 fl (7.4-10.4); Monocytes # 0.6 K/mm3 (0.1-1.0); Monocytes % 4.8 % (1.7-9.3); Neutrophils # 9.5 K/mm3 (1.8-7.8); Neutrophils % 71.7 % (37.0-80.0); Platelet Count 234 K/mm3 (142-424); Red Cell Distribution Width 14.2 % (11.5-17.5); White Blood Count 13.2 K/mm3 (4.8-10.8)
[2023-02-01 10:31] LABS: Alanine Aminotransferase 37 U/L (12-78); Albumin Level 4.2 g/dl (3.5-5.0); Alkaline Phosphatase 121 U/L (38-126); Anion Gap 14.9 mEq/L (5-15); Aspartate Amino Transferase 34 U/L (17-59); Bilirubin,Indirect 0.4 mg/dL (0.0-0.9); Bilirubin,Total 0.4 mg/dl (0.2-1.3); Bilirubin,Unconjugated 0.4 mg/dL (0.0-1.1); Blood Urea Nitrogen 24 mg/dl (9-20); Carbon Dioxide 24 mmol/L (22.0-30.0); Chloride 104 mmol/L (98-107); Chol/HDL Ratio 8.7 (1-3.5); Cholesterol 227 mg/dl (140-200); Estimated Glomerular Filt Rate 62 ml/min (>60); GFR (African American) 75 ML/MIN (>60); Glucose 103 mg/dl (74-100); HDL Cholesterol 26 mg/dl (40-60); Potassium 3.9 mmoL/L (3.5-5.1); Sodium 139 mmol/L (136-145); Total Protein,Serum 6.6 g/dl (6.3-8.2)
[2023-02-01 10:33] LABS: Triglycerides 455 mg/dl (30-150)
== END ==
PROVIDERS: PCP Pediatrics; Visit Provider Nurse Practitioner Family
DX: E78.00 Pure hypercholesterolemia, unspecified (principal)
CPT/HCPCS: 36415; 80048; 80061; 80076; 85025

== ENCOUNTER → 2023-05-03 07:05 | Outpatient (CLI) | payer MEDICARE, OTHER, SELFPAY ==
[2023-05-03 07:39] LABS: Basophils # 0.1 K/mm3 (0-0.2); Basophils % 0.4 % (0.1-2.0); Eosinophils # 0.4 K/mm3 (0.0-0.4); Eosinophils % 2.8 % (0.1-12.0); Hematocrit 49.4 % (42.0-52.0); Hemoglobin 15.9 g/dL (14.1-18.0); Lymphocytes # 2.8 K/mm3 (0.7-4.5); Lymphocytes % 20.2 % (10-50); Mean Corpuscular HGB Conc 32.1 g/dL (31.8-35.4); Mean Corpuscular Volume 93.6 fl (80-94); Mean Platelet Volume 8.4 fl (7.4-10.4); Monocytes # 0.7 K/mm3 (0.1-1.0); Neutrophils # 10.1 K/mm3 (1.8-7.8); Neutrophils % 71.6 % (37.0-80.0); Platelet Count 195 K/mm3 (142-424); Red Blood Count 5.28 M/mm3 (4.60-6.20); Red Cell Distribution Width 14.3 % (11.5-17.5); White Blood Count 14.1 K/mm3 (4.8-10.8)
[2023-05-03 08:12] LABS: Alanine Aminotransferase 44 U/L (12-78); Albumin Level 4.2 g/dl (3.5-5.0); Alkaline Phosphatase 114 U/L (38-126); Anion Gap 14.3 mEq/L (5-15); Aspartate Amino Transferase 37 U/L (17-59); Bilirubin,Direct 0.1 mg/dl (0.0-0.4); Bilirubin,Indirect 0.5 mg/dL (0.0-0.9); Bilirubin,Total 0.6 mg/dl (0.2-1.3); Bilirubin,Unconjugated 0.5 mg/dL (0.0-1.1); Blood Urea Nitrogen 16 mg/dl (9-20); Calcium 8.9 mg/dl (8.4-10.2); Carbon Dioxide 28 mmol/L (22.0-30.0); Chloride 104 mmol/L (98-107); Chol/HDL Ratio 3.5 (1-3.5); Cholesterol 98 mg/dl (140-200); Estimated Glomerular Filt Rate 69 ml/min (>60); GFR (African American) 83 ML/MIN (>60); Glucose 115 mg/dl (74-100); HDL Cholesterol 28 mg/dl (40-60); Potassium 3.3 mmoL/L (3.5-5.1); Sodium 143 mmol/L (136-145); Total Protein,Serum 6.6 g/dl (6.3-8.2); Triglycerides 200 mg/dl (30-150); VLDL Cholesterol 40 mg/dL (0-40)
[2023-05-03 08:23] LABS: Direct LDL Cholesterol 43.95 mg/dL (100-129)
== END ==
PROVIDERS: PCP Pediatrics; Visit Provider Internal Medicine Interventional Cardiology
DX: Z79.899 Other long term (current) drug therapy (principal); E78.00 Pure hypercholesterolemia, unspecified
CPT/HCPCS: 36415; 80048; 80061; 80076; 85025

== ENCOUNTER 2023-11-23 07:39 | Outpatient (CLI) | payer OTHER, SELFPAY ==
[2023-11-23 09:42] LABS: Basophils # 0.2 K/mm3 (0-0.2); Basophils % 1.4 % (0.1-2.0); Eosinophils # 0.5 K/mm3 (0.0-0.4); Eosinophils % 3.4 % (0.1-12.0); Hematocrit 52.4 % (42.0-52.0); Hemoglobin 17.1 g/dL (14.1-18.0); Lymphocytes # 3.1 K/mm3 (0.7-4.5); Lymphocytes % 23.6 % (10-50); Mean Corpuscular HGB Conc 32.6 g/dL (31.8-35.4); Mean Corpuscular Volume 101.1 fl (80-94); Mean Platelet Volume 8.6 fl (7.4-10.4); Monocytes # 0.6 K/mm3 (0.1-1.0); Monocytes % 4.7 % (1.7-9.3); Neutrophils # 8.9 K/mm3 (1.8-7.8); Neutrophils % 66.9 % (37.0-80.0); Platelet Count 209 K/mm3 (142-424); Red Blood Count 5.18 M/mm3 (4.60-6.20); Red Cell Distribution Width 14.2 % (11.5-17.5); White Blood Count 13.3 K/mm3 (4.8-10.8)
[2023-11-23 10:50] LABS: Alanine Aminotransferase 49 U/L (12-78); Alkaline Phosphatase 83 U/L (38-126); Anion Gap 12.3 mEq/L (5-15); Aspartate Amino Transferase 42 U/L (17-59); Bilirubin,Direct 0.2 mg/dl (0.0-0.4); Bilirubin,Indirect 0.8 mg/dL (0.0-0.9); Bilirubin,Unconjugated 0.8 mg/dL (0.0-1.1); Blood Urea Nitrogen 22 mg/dl (9-20); Calcium 9.3 mg/dl (8.4-10.2); Carbon Dioxide 28 mmol/L (22.0-30.0); Chloride 104 mmol/L (98-107); Chol/HDL Ratio 7.2 (1-3.5); Cholesterol 246 mg/dl (140-200); Estimated Glomerular Filt Rate 69 ml/min (>60); GFR (African American) 83 ML/MIN (>60); Glucose 118 mg/dl (74-100); HDL Cholesterol 34 mg/dl (40-60); Potassium 3.3 mmoL/L (3.5-5.1); Sodium 141 mmol/L (136-145); Total Protein,Serum 6.4 g/dl (6.3-8.2)
[2023-11-23 11:00] LABS: Triglycerides 429 mg/dl (30-150)
[2023-11-23 11:02] LABS: Direct LDL Cholesterol 110.23 mg/dL (100-129)
== END 2023-11-23 23:59 ==
LOC: LAB 07:41
PROVIDERS: Visit Provider Internal Medicine Interventional Cardiology
DX: I10 Essential (primary) hypertension (principal); E78.00 Pure hypercholesterolemia, unspecified; Z79.899 Other long term (current) drug therapy
CPT/HCPCS: 36415; 80048; 80061; 80076; 85025

== ENCOUNTER 2024-07-10 08:10 | Outpatient (CLI) | payer OTHER, SELFPAY ==
--- OUTSIDE RECORDS SUMMARY | 2024-07-10 08:32 | XMS_ITS | Referral Summary ---
Author Organization [facility] Address [address] [place] [address] Phone Care Team Providers Care Auto Apprentice Mechanic Name Role Phone Dashawn Morgan MD Primary Care Provider Encounters Date Type Department Care Team Description 05/10/2024 Travel 05/10/2024 9:00 PM EDT - 05/10/2024 9:43 PM EDT Emergency [facility] Emergency [address] [place] [address] Shawn Hwang MD Foreign body in skin (Primary Dx) Discharge Disposition: Home or Self Care from Last 3 Months Allergies No known active allergies Medications No known medications Social History Tobacco Use Types Packs/Day Years Used Date Smoking Tobacco: Every Day Cigarettes Smokeless Tobacco: Never Tobacco Cessation:Ready to Q uit: Not Asked; Counseling Given: Not Answered Alcohol Use Standard Drinks/Week Comments Not Currently 0 (1 standard drink = 0.6 oz pur e alcohol) Sex and Gender Information Value Date Recorded Sex Assigned at Not on file Legal Sex Male 8:36 PM EDT Gender Identity Not on file Sexual Orientation Not on file Last Filed Vital Signs Vital Sign Reading Time Taken Comments Blood Pressure 138/90 05/10/2024 8:39 PM EDT Pulse 90 05/10/2024 8:38 PM EDT Temperature 37 ??C (98.6 ??F) 05/10/2024 8:39 PM EDT Respiratory Rate 18 05/10/2024 8:38 PM EDT Oxygen Saturation 97% 05/10/2024 8:38 PM EDT Inhaled Oxygen Concentration - - Weight 117.9 kg (260 lb) 05/10/2024 8:39 PM EDT Height 182.9 cm (6') 05/10/2024 8:39 PM EDT Body Mass Index 35.26 05/10/2024 8:39 PM EDT Plan of Treatment Not on file Insurance [employer] MEDICARE PPO MR Care Teams Auto Apprentice Mechanic Relationship Specialty Start Date End Date Dashawn Morgan MD [address] [facility] [place] [address] PCP - General Internal Medicine 05/10/24
--- OUTSIDE RECORDS SUMMARY | 2024-07-10 08:32 | XMS_ITS | Encounter Summary ---
Author Organization [employer] Address [address] [place] [id number] Care Team Providers Care Experienced Truck Driver Name Role Phone Unavailable Primary Care Provider Unavailabl e Encounter Details Date Type Department Care Team (Late st Contact Info) Description 03/19/2022 Transcribed Document [facility] [place] [facility] [place] [address] ProviderHector MD [address] [place] [address] Social History Tobacco Use Types Packs/Day Years Used Date Smoking Tobacco: Never Assessed Sex and Gender Information Value Date Recorded Sex Assigned at Male 02/17/2022 9:03 PM CDT Legal Sex Male 9:03 PM CDT Gender Identity Male 02/17/2022 9:03 PM CDT Sexual Orientation Not on file documented as of this encounter Miscellaneous Notes * [employer]ner Conversion Note - Historical ProviderMD - 03/19/2022 2:06 PM CDT DATE OF SERVICE: 03/19/2022 SLEEP MEDICINE FOLLOWUP VISIT PRIMARY PROVIDER: Dr. Kathryn Shanks. HISTORY OF PRESENT ILLNESS: The patient returns for followup today regarding his sleep apnea and insomnia. He had a recent study showing severe obstructive sleep apnea with an AHI of 80. He is now managed with AutoPAP 6 to 20 cm of water pressure using a full-face mask. [facility] is his durable medical equipment provider. Review and interpretation of his download shows that he is well treated. He is 73% compliant. His AHI is 0.3. His primary complaint is he still only sleeps about 3 hours at night. He says he goes to sleep in 15 to 30 minutes, but awakens after 3 hours and frequently cannot go back to sleep, some nights it is only 2 hours that he sleeps. 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 The only thing that has worked in the past was [employer]. PAST MEDICAL HISTORY: The patient's medications have been changed. He is now on spironolactone. He is hypertensive and has congestive heart failure. SOCIAL HISTORY: He continues to smoke 2 packs of cigarettes a day. He does smoke when he awakens in the middle of the night. He does not drink alcohol. PHYSICAL EXAMINATION: VITAL SIGNS: Weight is 267, BMI is 36. Respirations 20, O2 sats 97, blood pressure 125/73, pulse is 81. HEENT: He does have a large zamorano and narrow mandibular arch. Mallampati 3. LUNGS: Clear to auscultation. HEART: Without murmurs. EXTREMITIES: He does have 2+ pedal edema. IMPRESSION: 1. Obstructive sleep apnea. 2. Hypertension. 3. Congestive heart failure. 4. Obesity. 5. Insomnia. RECOMMENDATION: 1. Continue with the use of positive airway pressure therapy. Orders were sent to [facility] for new mask, tubing, and filters. 2. We will try trazodone 100 to 200 mg at bedtime for sleep maintenance insomnia. 3. Follow up here annually or sooner if he has difficulties in the interval. /[id number] Lucille MD ZAIDA Vazquez/AQ / PW / MODL /[id number] CC: Dr. Kathryn Shanks documented in this encounter Plan of Treatment Not on file documented as of this encounter Visit Diagnoses Not on filedocumented in this encounter
--- OUTSIDE RECORDS SUMMARY | 2024-07-10 08:32 | XMS_ITS | Encounter Summary ---
Author Organization [facility] Address [address] [place] [id number] Care Team Providers Care Grain Sacker Name Role Phone Unavailable Primary Care Provider Unavailabl e Encounter Details Date Type Department Care Team (Late st Contact Info) Description 01/21/2022 Transcribed Document [facility] [place] Medicine [facility] [place] [address] ProviderHector MD [address] [place] [address] Social History Tobacco Use Types Packs/Day Years Used Date Smoking Tobacco: Never Assessed Sex and Gender Information Value Date Recorded Sex Assigned at Male 02/17/2022 9:03 PM CDT Legal Sex Male 9:03 PM CDT Gender Identity Male 02/17/2022 9:03 PM CDT Sexual Orientation Not on file documented as of this encounter Miscellaneous Notes * Cerner Conversion Note - Hector ProviderMD - 01/21/2022 9:38 AM CDT DATE OF SERVICE: 01/17/2022 POLYSOMNOGRAPHY DIAGNOSTIC REPORT ADDITIONAL REFERRING PROVIDER: Dr. Kathryn Shanks. MONTAGE: F3-M2, F4-1, C3-M2, O1-M2, O2-M1, LOC-M2, JOSEFINA-M2, submental EMG (3 leads), L tibialis anterior, R tibialis anterior, ECG, SpO2, nasal airflow (pressure), oral airflow (thermal), thoracic respiratory effort and abdominal respiratory effort. POLYSOMNOGRAPHY METHOD: Continuous recording of electroencephalographic, oculographic, submental EMG, limb movements, pulse oximetry, electrocardiogram using modified lead II torso placement, airflow via nasal pressure and thermistor and respiratory effort occurred during the patient's habitual sleep time. Each 30 second epoch was scored according to The AASM Manual for the Scoring of Sleep and Associated Events using the 1B 4% hypopnea rule. Capnography was recorded. A CPAP titration was tried. He was started on 5 cm of water pressure with a full-face mask, but the patient stated he could never wear this at home and did not want to try it here in the office. He took the mask off and the study was finished as a diagnostic study. RESULTS: 1. Sleep architecture: Total recording time is 360 minutes. Total sleep time is 330 minutes. Sleep efficiency is 30%. The patient awakened frequently during the night. 2. Sleep continuity arousal index was elevated at 53. 3. Respiratory data: Apnea plus hypopnea index was 80 with 141 hypopneas and 3 apneas. O2 sats were below 88% for 21 minutes of the study. End-tidal CO2 average was 36 with highest end-tidal CO2 of 46. 4. Cardiac: Average heart rate was 75 with no arrhythmias. 5. Limb movements were not increased. IMPRESSION: 1. Very poorly maintained sleep with frequent awakening. 2. Severe obstructive sleep apnea. The patient appeared to wake up frequently secondary to respiratory events, but was unwilling to try positive airway pressure therapy. FOLLOWUP: The patient will be seen in followup to discuss treatment options. /[id number] Lucille Laxmi Ivy MD PW/AQ / ZAIDA / BEBA /[id number] CC: Kathryn Shanks MD Electronically signed by [facility] Conversion Textile Colorist Formulator Cerner at 12/07/2022 6:43 PM CDT documented in this encounter Plan of Treatment Not on file documented as of this encounter Visit Diagnoses Not on filedocumented in this encounter
--- OUTSIDE RECORDS SUMMARY | 2024-07-10 08:32 | XMS_ITS | Encounter Summary ---
Author Organization [facility] yste Address [address] [place] [address] Care Team Providers Care Software Maintenance Engineer Name Role Phone Garrett Pulido MD Primary Care Provider [phone] Reason for Visit * Auth/Cert Specialty Diagnoses / Procedures Referred By Contac t Referred To Contact Diagnoses . Procedures RI TOTAL KNEE ARTHROPLASTY TOTAL KNEE ARTHROPLASTY RIGHT Referral ID Status Reason Start Date Expiration Date Visits Re quested Visits Authorized [id number] 1 1 Encounter Details Date Type Department Care Team (Late st Contact Info) Description 06/23/2021 9:41 AM EDT - 06/23/2021 12:07 PM EDT Surgery [facility] OR [address] [place] [address] Dashawn Escobar MD [address] [place] [address] [address] [place] [address] TOTAL KNEE ARTHROPLASTY RIGHT [08578 (CPT??)] Social History Tobacco Use Types Packs/Day Years Used Date Smoking Tobacco: Every Day Cigarettes Smokeless Tobacco: Never Alcohol Use Standard Drinks/Week Comments No 0 (1 standard drink = 0.6 oz pur e alcohol) Sex and Gender Information Value Date Recorded Sex Assigned at Not on file Legal Sex Male 8:09 AM EDT Gender Identity Not on file Sexual Orientation Not on file documented as of this encounter Last Filed Vital Signs Vital Sign Reading Time Taken Comments Blood Pressure 120/81 06/23/2021 12:05 PM EDT Pulse 71 06/23/2021 12:05 PM EDT Temperature 36.7 ??C (98.1 ??F) 06/23/2021 11:56 AM E DT Respiratory Rate 18 06/23/2021 12:05 PM EDT Oxygen Saturation 95% 06/23/2021 12:05 PM EDT Inhaled Oxygen Concentration - - Weight 119 kg (262 lb) 06/23/2021 8:00 AM EDT Height 182.9 cm (6') 06/23/2021 8:00 AM EDT Body Mass Index 35.53 06/23/2021 8:00 AM EDT documented in this encounter Discharge Instructions * Discharge Instr - Activity* Shahnaz Tafoya RN - 06/23/2021 4:33 PM EDT Weight bearing as tolerated to R knee. Use ice for increase in pain and swelling. * Discharge Instr - Diet* Shahnaz Tafoya RN - 06/23/2021 4:33 PM EDT Resume regular diet * Attachments The following attachments cannot be sent through Care Everywhere. * Total Knee Replacement (Monegasque) * How to Use Cold Therapy (Monegasque) * Fall Prevention in the Home Adult (Monegasque) * Continuous Peripheral Nerve Block Infusion Self-Care (Monegasque) * Oxycodone tablets or capsules (Monegasque) documented in this encounter Medications at Time of Discharge allopurinol (ZYLOPRIM) 300 MG tablet Take 300 mg by mouth Daily. amLODIPine (NORVASC) 10 MG tablet Take 10 mg by mouth Daily. aspirin 81 MG EC tablet Take 1 tablet by mouth Daily. Take 4 aspirin tablets tomorrow , then 1 daily till finished. 34 tablet 06/23/2021 3:20 PM EDT 06/24/2021 atorvastatin (LIPITOR) 40 MG tablet Take 1 tablet by mouth Daily. 90 tablet 3 04/01/2018 carvedilol (COREG) 25 MG tablet Take 25 mg by mouth 2 (Two) Times a Day With Meals. clopidogrel (PLAVIX) 75 MG tablet Take 1 tablet by mouth Daily. 30 tablet 06/25/2021 hydroCHLOROthiaz karin (HYDRODIURIL) 25 MG tablet Take 25 mg by mouth Daily. lisinopril (PRINIVIL,ZESTRI L) 40 MG tablet Take 40 mg by mouth 2 (two) times a day. meloxicam (MOBIC) 15 MG tablet Take 15 mg by mouth Daily As Needed for Mild Pain . omeprazole (priLOSEC) 20 MG capsule Take 40 mg by mouth Daily. oxyCODONE (Roxicodone) 5 MG immediate release tabletIndication s:S/P total knee arthroplasty, right Take 1 tablet by mouth Every 4 (Four) Hours As Needed for Moderate Pain . 40 tablet 06/23/2021 3:20 PM EDT 06/23/2021 potassium chloride 10 MEQ CR tablet Take 20 mEq by mouth Daily. Ropivacine HCl-NaCl (NAROPIN)Indicat ions:Acute Pain 20 mg/hr by Peripheral Nerve route Continuous. Indications: Acute Pain 06/23/2021 acetaminophen (TYLENOL) 500 MG tablet Take 2 tablets by mouth Every 8 (Eight) Hours for 7 days. Take every 8 hours as needed after 1 week 42 tablet 06/23/2021 docusate sodium (COLACE) 100 MG capsule Take 1 capsule by mouth 2 (Two) Times a Day for 15 days. 30 capsule 06/23/2021 3:20 PM EDT 06/23/2021 documented as of this encounter Progress Notes * Cash Deleon CRNA - 06/23/2021 5:10 PM EDT [facility] Post Op Call Patient Name: Sukhdeep Hall : 1965 Date of Discharge: 06/23/2021 Nerve Cath Post Op Call: Analgesia:Good Pain Score:3/10 Side Effects:None Patient Controlled ON Q pump infusion rate: 10ml/hr Catheter Plan:Will continue with plan at home without changes Patient/Family instructed to call PRODUCT SAFETY TESTER anesthesia provider for any questions or problems. Patient Follow Up: * Jesenia Breen CRNA - 06/23/2021 5:10 PM EDT [facility] Post Op Call Patient Name: Sukhdeep Hall : 1965 Date of Discharge: 06/23/2021 Nerve Cath Post Op Call: Analgesia:Fair Pain Score:7/10 (outside of the knee) Side Effects:None Catheter Site:clean Patient Controlled ON Q pump infusion rate: 10ml/hr Catheter Plan:Will continue with plan at home without changes and The patient was instructed to call PRODUCT SAFETY TESTER Anesthesia provider for any questions or problems Patient/Family instructed to call PRODUCT SAFETY TESTER anesthesia provider for any questions or problems. Patient Follow Up: Tylenol use: acetaminophen use Patient states leg is very swollen with pain outside of the knee. Pt also states top of knee pain, pt was instructed to turn Arrow pump to rate 14mL/hr for two hours and then turn it back down to rate of 10mL/hr. Pt states understanding. Pt is taking Tylenol and Pain medication. Phone carcass splitter was very poor. Very difficult to hear the conversation. * Jesenia Breen CRNA - 06/23/2021 5:10 PM EDT [facility] Nerve Cath Post Op Call Patient Name: Sukhdeep Hall : 1965 Date of Discharge: 06/23/2021 Nerve Cath Post Op Call: Catheter Plan:Patient/Family member report nerve catheter previously discontinued, tip intact Patient/Family instructed to call PRODUCT SAFETY TESTER anesthesia provider for any questions or problems. Patient Follow Up: documented in this encounter H&P Notes * Rashmi Owens MD - 06/23/2021 1:43 PM EDT Patient Name: Sukhdeep Hall : 1965 DOS: 06/23/2021 Attending: Dashawn Escobar MD Primary Care Provider: Garrett Pulido MD Chief complaint: Right knee Pain. Subjective Patient is a pleasant 55 y.o. male presented for scheduled surgery by Dr. Escobar. Per his note( 55-year-old with endstage right knee osteoarthritic symptoms and corresponding x-raysshowing near complete loss medial joint space. No sustained relief from reasonable non-operative management. Nearly equal symptoms with the left knee which has lesser grade arthritic change. Risks benefits and indications and rationale for right total knee arthroplasty discussed at length with patient. Patient is??made aware of possible mechanical or infectious complications for TKA as well as possible perioperative medical complication. Patient signs his own consent after all questions are answered.). Seen in his room after surgery, doing fairly well. No complains of nausea, vomiting, or shortness of breath. His pain control is adequate. Awaiting physical therapy to ambulate and is very motivated to achieve his goals for possible discharge home later in the day. He has no history of DVT or PE. He has history of coronary artery disease and history of stent. He unfortunately continues to smoke and has no intent of quitting. Allergies: No Known Allergies Medications Prior to Admission Medication Sig Dispense Refill Last Dose ??? allopurinol (ZYLOPRIM) 300 MG tablet Take 300 mg by mouth Daily. 06/23/2021 at 0600 ??? amLODIPine (NORVASC) 10 MG tablet Take 10 mg by mouth Daily. 06/22/2021 at 0800 ??? atorvastatin (LIPITOR) 40 MG tablet Take 1 tablet by mouth Daily. 90 tablet 3 06/22/2021 at 0800 ??? carvedilol (COREG) 25 MG tablet Take 25 mg by mouth 2 (Two) Times a Day With Meals. 06/23/2021 at 0600 ??? hydroCHLOROthiazide (HYDRODIURIL) 25 MG tablet Take 25 mg by mouth Daily. 06/23/2021 at 0600 ??? lisinopril (PRINIVIL,ZESTRIL) 40 MG tablet Take 40 mg by mouth 2 (two) times a day. 06/22/2021 at 0800 ??? omeprazole (priLOSEC) 20 MG capsule Take 40 mg by mouth Daily. 06/21/2021 at 0800 ??? potassium chloride 10 MEQ CR tablet Take 20 mEq by mouth Daily. 06/23/2021 at 0600 ??? clopidogrel (PLAVIX) 75 MG tablet Take 75 mg by mouth Daily. 06/14/2021 at 0800 ??? meloxicam (MOBIC) 15 MG tablet Take 15 mg by mouth Daily As Needed for Mild Pain . 06/21/2021 at 0800 Past Medical History: Diagnosis Date ??? Arthritis ??? Basal cell carcinoma NOSE ??? Cellulitis LEFT UPPER THIGH, GROIN ??? COPD (chronic obstructive pulmonary disease) (HCC) ??? Coronary artery disease ??? Elevated cholesterol ??? GERD (gastroesophageal reflux disease) ??? Gout ??? Hypertension ??? Insomnia ??? Myocardial infarct (HCC) ??? Stented coronary artery Past Surgical History: Procedure Laterality Date ??? CARDIAC CATHETERIZATION N/A 03/31/2018 Procedure: Left Heart Cath; Surgeon: Harrison Jett MD; Location: [facility]; Service: Cardiovascular ??? CARDIAC CATHETERIZATION N/A 03/31/2018 Procedure: Left ventriculography; Surgeon: Harrison Jett MD; Location: [facility]; Service: Cardiovascular ??? CARDIAC CATHETERIZATION N/A 03/31/2018 Procedure: Coronary angiography; Surgeon: Harrison Jett MD; Location: [facility]; Service: Cardiovascular ??? CARDIAC CATHETERIZATION N/A 03/31/2018 Procedure: Stent FLOR coronary; Surgeon: Harrison Jett MD; Location: [facility]; Service: Cardiovascular ??? COLONOSCOPY 2017 ??? INCISION AND DRAINAGE LEG Left ??? RI RT/LT HEART CATHETERS N/A 03/31/2018 Procedure: Percutaneous Coronary Intervention; Surgeon: Harrison Jett MD; Location: [facility]; Service: Cardiovascular Family History Problem Relation Age of Onset ??? Heart disease Mother ??? Heart disease Father ??? Heart disease Brother Social History Tobacco Use ??? Smoking status: Current Every Day Smoker Packs/day: 2.00 Types: Cigarettes ??? Smokeless tobacco: Never Used Vaping Use ??? Vaping Use: Never used Substance Use Topics ??? Alcohol use: No ??? Drug use: Yes Types: Marijuana Comment: 1 DAILY. 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 Review of Systems Pertinent items are noted in HPI, all other systems reviewed and negative Vital Signs BP 141/98 (BP Location: Right arm, Patient Position: Lying) Pulse 72 Temp 97.6 ??F (36.4 ??C) (Oral) Resp 18 Ht 182.9 cm (72 ) Wt 119 kg (262 lb) SpO2 97% BMI 35.53 kg/m?? Physical Exam: General Appearance: Alert, cooperative, in no acute distress Head: Normocephalic, without obvious abnormality, atraumatic Eyes: Lids and lashes normal, conjunctivae and sclerae normal, no icterus, no pallor, corneas clear Ears: Ears appear intact with no abnormalities noted Throat: No oral lesions, no thrush, oral mucosa moist Neck: No adenopathy, supple, trachea midline, no thyromegaly Lungs: Clear to auscultation,respirations regular, even and unlabored Heart: Regular rhythm and normal rate, normal S1 and S2, no murmur, no gallop Abdomen: Normal bowel sounds, no masses, no organomegaly, soft non-tender, non- distended, no guarding, no rebound tenderness Genitalia: Deferred Extremities: Right LE, CDI: Dressing on knee, PNB cath present. Pulses: Pulses palpable and equal bilaterally Skin: No bleeding, bruising or rash Neurologic: Cranial nerves 2 - 12 grossly intact, intact flexion dorsiflexion bilateral feet I reviewed the patient's new clinical results. Invalid input(s): NEUTOPHILPCT, EOSPCT Results from last 7 days Lab Units 06/23/21 0759 POTASSIUM mmol/L 3.5 Lab Results Component Value Date HGBA1C 5.70 (H) 06/13/2021 Results for SUKHDEEP HALL ( ) as of 06/23/2021 13:43 Ref. Range 06/13/2021 13:53 Glucose Latest Ref Range: 65 - 99 mg/dL 101 (H) Sodium Latest Ref Range: 136 - 145 mmol/L 139 Potassium Latest Ref Range: 3.5 - 5.2 mmol/L 3.6 CO2 Latest Ref Range: 22.0 - 29.0 mmol/L 26.0 Chloride Latest Ref Range: 98 - 107 mmol/L 102 Anion Gap Latest Ref Range: 5.0 - 15.0 mmol/L 11.0 Creatinine Latest Ref Range: 0.76 - 1.27 mg/dL 0.57 (L) BUN Latest Ref Range: 6 - 20 mg/dL 9 BUN/Creatinine Ratio Latest Ref Range: 7.0 - 25.0 15.8 Calcium Latest Ref Range: 8.6 - 10.5 mg/dL 8.5 (L) eGFR Non Am Latest Ref Range: >60 mL/min/1.73 148 Alkaline Phosphatase Latest Ref Range: 39 - 117 U/L 99 Total Protein Latest Ref Range: 6.0 - 8.5 g/dL 5.6 (L) ALT (SGPT) Latest Ref Range: 1 - 41 U/L 23 AST (SGOT) Latest Ref Range: 1 - 40 U/L 21 Total Bilirubin Latest Ref Range: 0.0 - 1.2 mg/dL 0.5 Albumin Latest Ref Range: 3.50 - 5.20 g/dL 3.40 (L) Globulin Latest Units: gm/dL 2.2 A/G Ratio Latest Units: g/dL 1.5 Hemoglobin A1C Latest Ref Range: 4.80 - 5.60 % 5.70 (H) Results for SUKHDEEP HALL ( ) as of 06/23/2021 13:43 Ref. Range 06/13/2021 13:53 WBC Latest Ref Range: 3.40 - 10.80 10*3/mm3 10.48 RBC Latest Ref Range: 4.14 - 5.80 10*6/mm3 5.52 Hemoglobin Latest Ref Range: 13.0 - 17.7 g/dL 17.4 Hematocrit Latest Ref Range: 37.5 - 51.0 % 50.6 RDW Latest Ref Range: 12.3 - 15.4 % 12.7 MCV Latest Ref Range: 79.0 - 97.0 fL 91.7 MCH Latest Ref Range: 26.6 - 33.0 pg 31.5 MCHC Latest Ref Range: 31.5 - 35.7 g/dL 34.4 MPV Latest Ref Range: 6.0 - 12.0 fL 10.1 Platelets Latest Ref Range: 140 - 450 10*3/mm3 211 Assessment and Plan: S/P total knee arthroplasty, right Arthritis of right knee HTN (hypertension) CAD (coronary artery disease), hx of stent 2018 Tobacco abuse Plan 1. PT/OT, Weight bearing as tolerated right LE 2. Pain control-prns, ACB cath with ropivacaine infusion. 3. IS-encourage 4. DVT proph- Mechanicals and aspirin. I instructed patient to take aspirin 81 mg 4 tablets tomorrow and start 1 tablet daily along with resumption of Plavix the day after tomorrow/postop day 2 5. Bowel regimen 6. Resume home medications as appropriate 7. Monitor post-op labs 8. DC planning for home Patient is very motivated to achieve his goals with physical therapy and pain control for possible discharge home later in the day. I followed up on the patient after clearing physical therapy. He is doing well, tolerated p.o. diet, voided, his pain control is adequate. He is to receive Arrow pump education, second dose of perioperative antibiotic, and be discharged home with him later in the day. I reviewed with him his medications at time of discharge and answered all questions. Dragon disclaimer: Part of this encounter note is an electronic parcel contractor/translation of spoken language to printed text. The electronic translation of spoken language may permit erroneous, or at times, nonsensicalwords or phrases to be inadvertently transcribed; Although I have reviewed the note for such errors, some may still exist. Rashmi Owens MD 06/23/21 13:43 EDT * Dashawn Escobar MD - 06/23/2021 8:14 AM EDT Pre-Op H&P Sukhdeep Hall [id number] Chief complaint: Right knee pain Subjective: Patient is a 55 y.o.male presents for scheduled surgery by Dr. Escobar. He anticipates a TOTAL KNEE ARTHROPLASTY RIGHT today. His knee has been painful for many years. He uses a cane for ambulation. He denies recent falls. Conservative treatments failed to provide lasting benefits. Review of Systems: Constitutional-- No fever, chills or sweats. No fatigue. CV-- No chest pain, palpitation or syncope. +HTN, HLD, CAD +cardiac clearance; last dose plavix 06/14/21 Resp-- + SOB, cough, COPD Skin--No rashes or lesions Allergies: No Known Allergies Home Meds: Medications Prior to Admission Medication Sig Dispense Refill Last Dose ??? allopurinol (ZYLOPRIM) 300 MG tablet Take 300 mg by mouth Daily. 06/23/2021 at 0600 ??? amLODIPine (NORVASC) 10 MG tablet Take 10 mg by mouth Daily. 06/22/2021 at 0800 ??? atorvastatin (LIPITOR) 40 MG tablet Take 1 tablet by mouth Daily. 90 tablet 3 06/22/2021 at 0800 ??? carvedilol (COREG) 25 MG tablet Take 25 mg by mouth 2 (Two) Times a Day With Meals. 06/23/2021 at 0600 ??? hydroCHLOROthiazide (HYDRODIURIL) 25 MG tablet Take 25 mg by mouth Daily. 06/23/2021 at 0600 ??? lisinopril (PRINIVIL,ZESTRIL) 40 MG tablet Take 40 mg by mouth 2 (two) times a day. 06/22/2021 at 0800 ??? omeprazole (priLOSEC) 20 MG capsule Take 40 mg by mouth Daily. 06/21/2021 at 0800 ??? potassium chloride 10 MEQ CR tablet Take 20 mEq by mouth Daily. 06/23/2021 at 0600 ??? clopidogrel (PLAVIX) 75 MG tablet Take 75 mg by mouth Daily. 06/14/2021 at 0800 ??? meloxicam (MOBIC) 15 MG tablet Take 15 mg by mouth Daily As Needed for Mild Pain . 06/21/2021 at 0800 PMH: Past Medical History: Diagnosis Date ??? Arthritis ??? Basal cell carcinoma NOSE ??? Cellulitis LEFT UPPER THIGH, GROIN ??? COPD (chronic obstructive pulmonary disease) (HCC) ??? Coronary artery disease ??? Elevated cholesterol ??? GERD (gastroesophageal reflux disease) ??? Gout ??? Hypertension ??? Insomnia ??? Myocardial infarct (HCC) ??? Stented coronary artery PSH: Past Surgical History: Procedure Laterality Date ??? CARDIAC CATHETERIZATION N/A 03/31/2018 Procedure: Left Heart Cath; Surgeon: Harrison Jett MD; Location: [facility]; Service: Cardiovascular ??? CARDIAC CATHETERIZATION N/A 03/31/2018 Procedure: Left ventriculography; Surgeon: Harrison Jett MD; Location: [facility]ATH [facility] LOC[facility]; Service: Cardiovascular ??? CARDIAC CATHETERIZATION N/A 03/31/2018 Procedure: Coronary angiography; Surgeon: Harrison Jett MD; Location: [facility]; Service: Cardiovascular ??? CARDIAC CATHETERIZATION N/A 03/31/2018 Procedure: Stent FLOR coronary; Surgeon: Harrison Jett MD; Location: [facility]; Service: Cardiovascular ??? COLONOSCOPY 2017 ??? INCISION AND DRAINAGE LEG Left ??? RI RT/LT HEART CATHETERS N/A 03/31/2018 Procedure: Percutaneous Coronary Intervention; Surgeon: Harrison Jett MD; Location: [facility]; Service: Cardiovascular Immunization History: Influenza: No Pneumococcal: No Tetanus: No Covid x2: 2020 Social History: Tobacco: Social History Tobacco Use Smoking Status Current Every Day Smoker ??? Packs/day: 2.00 ??? Types: Cigarettes Smokeless Tobacco Never Used Alcohol: Social History Substance and Sexual Activity Alcohol Use No Physical Exam:BP (!) 190/116 (BP Location: Right arm, Patient Position: Lying) Pulse 84 Temp 97.6 ??F (36.4 ??C) (Tympanic) Resp 18 Ht 182.9 cm (72 ) Wt 119 kg (262 lb) SpO2 98% BMI 35.53 kg/m?? General Appearance: Alert, cooperative, no distress, appears stated age Head: Normocephalic, without obvious abnormality, atraumatic Lungs: Clear to auscultation bilaterally, respirations unlabored Heart: Regular rate and rhythm, S1 and S2 normal Abdomen: Soft without tenderness Extremities: Extremities normal, atraumatic, no cyanosis or edema Skin: Skin color, texture, turgor normal, no rashes or lesions Neurologic: Grossly intact Results Review: LABS: Lab Results Component Value Date WBC 10.48 06/13/2021 HGB 17.4 06/13/2021 HCT 50.6 06/13/2021 MCV 91.7 06/13/2021 PLT 211 06/13/2021 NEUTROABS 6.99 06/13/2021 GLUCOSE 101 (H) 06/13/2021 BUN 9 06/13/2021 CREATININE 0.57 (L) 06/13/2021 EGFRIFNONA 148 06/13/2021 EGFRIFAFRI 108 03/31/2018 NA 139 06/13/2021 K 3.6 06/13/2021 CL 102 06/13/2021 CO2 26.0 06/13/2021 CALCIUM 8.5 (L) 06/13/2021 ALBUMIN 3.40 (L) 06/13/2021 AST 21 06/13/2021 ALT 23 06/13/2021 BILITOT 0.5 06/13/2021 RADIOLOGY: Imaging Results (Last 72 Hours) No results found for the last 72 hours. I reviewed the patient's new clinical results. Cancer Staging (if applicable) Cancer Patient: __ yes __no __unknown; If yes, clinical stage T:__ N:__M:__, stage group or __N/A Impression: Right knee pain /osteoarthritis Plan: TOTAL KNEE ARTHROPLASTY RIGHT Shahnaz Mcgowan APRN 06/23/2021 08:14 EDT documented in this encounter Nursing Notes * Barry Gonzalez, PT - 06/23/2021 1:40 PM EDT Problem: Adult Inpatient Plan of Care Goal: Plan of Care Review Flowsheets (Taken 06/23/2021 1340) Progress: improving Plan of Care Reviewed With: patient Outcome Summary: PT eval complete. Pt ambulated 360 feet using RW, CGA, and one person to manage equipment. Gait limited by fatigue. Bed mobility performed with supervision and STS with CGA. No knee buckling noted. Pt IND with SLR. Will assess R knee AROM POD#1 if pt does not d/c today. Reviewed HEP and knee precautions via handout. Educated on safe car transfers. PADD score = 10. ADLs assessed, pt does not require OT eval tonight. Functionally, pt safe to d/c home with assist today from a PT perspective. Recommend HHPT. Goal Outcome Evaluation: Plan of Care Reviewed With: patient Progress: improving Outcome Summary: PT eval complete. Pt ambulated 360 feet using RW, CGA, and one person to manage equipment. Gait limited by fatigue. Bed mobility performed with supervision and STS with CGA. No knee buckling noted. Pt IND with SLR. Will assess R knee AROM POD#1 if pt does not d/c today. Reviewed HEP and knee precautions via handout. Educated on safe car transfers. PADD score = 10. ADLs assessed, pt does not require OT eval tonight. Functionally, pt safe to d/c home with assist today from a PT perspective. Recommend HHPT. documented in this encounter OR Notes * Op Note - Dashawn Escobar MD - 06/23/2021 10:42 AM EDT TOTAL KNEE ARTHROPLASTY Progress Note Sukhdeep Hall 06/23/2021 Pre-op Diagnosis: Right knee osteoarthritis Post-Op Diagnosis Codes: Right knee osteoarthritis Procedure/CPT?? Codes: 86828 Procedure(s): TOTAL KNEE ARTHROPLASTY RIGHT Surgeon(s): Dashawn Escobar MD Anesthesia: Spinal Staff: Director Of Marketing Analytics: Nikki Bain RN; Rg Brody RN; Bella Presley RN Physician Entry Level Sales Associate: Toney Casas PA Scrub Person: Galen Stanley Vendor Psychiatric Technician Assistant: Shawn Self Linux Systems Administrator: Alba Henning; Mari Quiñones PCT Estimated Blood Loss: 75 mL Urine Voided: * No values recorded between 06/23/2021 10:11 AM and 06/23/2021 11:52 AM * Specimens: None Drains: * No LDAs found * Findings: High-grade trochlear and medial compartment changes Complications: None Implants: [employer] system Femoral size 7 (PCL sparing) Patellar button size 35 Tibia size 6 with 9 mm poly spacer Indications: 55-year-old with endstage right knee osteoarthritic symptoms and corresponding x-rays showing near complete loss medial joint space. No sustained relief from reasonable non-operative management. Nearly equal symptoms with the left knee which has lesser grade arthritic change. Risks benefits and indications and rationale for right total knee arthroplasty discussed at length with patient. Patient is made aware of possible mechanical or infectious complications for TKA as well as possible perioperative medical complication. Patient signs his own consent after all questions are answered. Procedure: While in the OR spinal anesthesia started with satisfactory level. Turned to the supine position and prepped and draped in standard fashion from mid-thigh to the ankle using the sliding leg montero. Tourniquet inflated at 300 mg Hg with total tourniquet time approximately 66 minutes. Standard anterior incision made medial to the patella. Medial parapatellar arthrotomy performed. Patella was everted after adequate anterolateral debridement. High grade medial compartment changes noted as well as moderate patellofemoral and mild lateral compartment changes. Intramedullary guides used for femoral preparation to size 7. Standard cuts made orthogonal to Tiburcio's line. Femoral trial showed full easy extension and stable deep flexion with good patellar tracking. Proximal tibia exposed with circumferential meniscectomy. ACL was removed. PCL was preserved. Proximal tibia cut made nearly perpendicular to the mechanical axis. No significant medial joint line osteophytes required removal. Tibia sized to #6 with 9 mm trial spacer showing adequate terminal extension after debriding posterior oste ophytes. Patella cut with jig leaving 14 mm remnant. Patellar trial positioned and prepared accordingly. Trials at this point showed easy motion, excellent patellar tracking and varus-valgus stability. Motion demonstrated 0/0/150 with optimal deep flexion stability with the 9 mm spacer. Trials removed and bone surfaces thoroughly irrigated. Posterior capsule was injected with local anesthetic. Standard cement technique used for femoral and tibial and patellar components with excess cement removed during the curing process. Final components assembled and reduced with stability and range of motion and patellar tracking similar to the trials. Wound was thoroughly irrigated and closed in layerswithout a drain. Standard Sharri dressing applied. Final counts were correct. Patient stable to recovery having tolerated procedure well throughout. Dashawn Escobar MD Date: 06/23/2021 Time: 11:54 EDT documented in this encounter Miscellaneous Notes * Case Management/Social Work - Mira Nassar RN - 06/23/2021 3:25 PM EDT Continued Stay Note Jp Patient Name: Sukhdeep Hall Today's Date: 06/23/2021 Admit Date: 06/23/2021 Discharge Plan Row Name 06/23/21 1522 Plan Plan Home with outpt PT Plan Comments chart reviewed. I met with Mr Hall and at bedside to discuss d/c plan. His plan is to return hme. will be available to assist. He already has a rolling walker and cane. we discussed options for outpt PT. he requested [facility]. I spoke with Kendra at [phone] who confirmed appt for 06/25 at 11am. Order faxed to [phone]. He is in agreement with plan Final Discharge Disposition Code 01 - home or self-care Discharge Codes No documentation. Mira Nassar, RN * Therapy Evaluation - Barry Gonzalez, PT - 06/23/2021 1:40 PM EDT Images from the original note were not included. Patient Name: Sukhdeep Hall : 1965 Today's Date: 06/23/2021 Admit Date: 06/23/2021 Visit Dx: ICD-10-CM ICD-9-CM 1. S/P total knee arthroplasty, right Z96.651 V43.65 Patient Active Problem List Diagnosis ??? STEMI involving right coronary artery (HCC) ??? Arthritis of right knee ??? S/P total knee arthroplasty, right ??? HTN (hypertension) ??? CAD (coronary artery disease), hx of stent 2018 ??? Tobacco abuse Past Medical History: Diagnosis Date ??? Arthritis ??? Basal cell carcinoma NOSE ??? Cellulitis LEFT UPPER THIGH, GROIN ??? COPD (chronic obstructive pulmonary disease) (HCC) ??? Coronary artery disease ??? Elevated cholesterol ??? GERD (gastroesophageal reflux disease) ??? Gout ??? Hypertension ??? Insomnia ??? Myocardial infarct (HCC) ??? Stented coronary artery Past Surgical History: Procedure Laterality Date ??? CARDIAC CATHETERIZATION N/A 03/31/2018 Procedure: Left Heart Cath; Surgeon: Harrison Jett MD; Location: [facility]; Service: Cardiovascular ??? CARDIAC CATHETERIZATION N/A 03/31/2018 Procedure: Left ventriculography; Surgeon: Harrison Jett MD; Location: [facility]; Service: Cardiovascular ??? CARDIAC CATHETERIZATION N/A 03/31/2018 Procedure: Coronary angiography; Surgeon: Harrison Jett MD; Location: [facility]; Service: Cardiovascular ??? CARDIAC CATHETERIZATION N/A 03/31/2018 Procedure: Stent FLOR coronary; Surgeon: Harrison Jett MD; Location: [facility]; Service: Cardiovascular ??? COLONOSCOPY 2018 ??? INCISION AND DRAINAGE LEG Left ??? RI RT/LT HEART CATHETERS N/A 03/31/2018 Procedure: Percutaneous Coronary Intervention; Surgeon: Harrison Jett MD; Location: [facility]; Service: Cardiovascular General Information Row Name 06/23/21 1340 Physical Therapy Time and Intention Document Type evaluation -LAVELL Mode of Treatment individual therapy; physical therapy - Row Name 06/23/21 1340 General Information Patient Profile Reviewed yes -LAVELL Prior Level of Function min assist:; all household mobility; transfer; bed mobility; ADL's -LAVELL Existing Precautions/Restrictions other (see comments) SHARRI, R adductor nerve cath - Barriers to Rehab none identified - Row Name 06/23/21 1340 Living Environment Lives With spouse - Row Name 06/23/21 1340 Home Main Entrance Number of Stairs, Main Entrance none -LAVELL Stair Railings, Main Entrance none -LAVELL Row Name 06/23/21 1340 Stairs Within Home, Primary Stairs, Within Home, Primary 0 -LAVELL Number of Stairs, Within Home, Primary none -LAVELL Row Name 06/23/21 1340 Cognition Orientation Status (Cognition) oriented x 4 -LAVELL Row Name 06/23/21 1340 Safety Issues, Functional Mobility Safety Issues Affecting Function (Mobility) safety precaution awareness; safety precautions follow-through/compliance - Impairments Affecting Function (Mobility) endurance/activity tolerance; strength; pain; range of motion (ROM) -LAVELL User Quezada (r) = Recorded By, (t) = Taken By, (c) = Cosigned By Initials Name Provider Type LAVELL Barry Gonzalez PT Physical Therapist Mobility Row Name 06/23/21 1340 Bed Mobility Bed Mobility scooting/bridging; supine-sit -LAVELL Scooting/Bridging [place] (Bed Mobility) supervision; verbal cues -LAVELL Supine-Sit [place] (Bed Mobility) supervision; verbal cues -LAVELL Comment (Bed Mobility) Verbal cues for LE sequencing off of EOB and trunk control into sitting - Row Name 06/23/21 1340 Transfers Comment (Transfers) Verbal cues for safe hand placement during standing/sitting and moving R LE outfor comfort prior to sitting - Row Name 06/23/21 134 Sit-Stand Transfer Sit-Stand [place] (Transfers) verbal cues; contact guard - Assistive Device (Sit-Stand Transfers) walker, front-wheeled - Row Name 06/23/211339 Gait/Stairs (Locomotion) [place] Level (Gait) verbal cues; contact guard; 1 person to manage equipment - Assistive Device (Gait) walker, front-wheeled - Distance in Feet (Gait) 360 - Deviations/Abnormal Patterns (Gait) bilateral deviations; chapis decreased; gait speed decreased; stride length decreased - Bilateral Gait Deviations forward flexed posture - Right Sided Gait Deviations heel strike decreased; weight shift ability decreased - [place] Level (Stairs) not tested - Comment (Gait/Stairs) Pt ambulated with step through pattern and decreased speed. Verbal cues for maintaining upright posture, body within walker, increase step length, and WB through LEs. Gait limited by fatigue. No knee buckling noted. -[facility] Name 06/23/211339 Mobility Extremity Weight-bearing Status right lower extremity - Right Lower Extremity (Weight-bearing Status) weight-bearing as tolerated (WBAT) - User Quezada (r) = Recorded By, (t) = Taken By, (c) = Cosigned By Initials Name Provider Type Barry Eisenberg, PT Physical Therapist Obj/Interventions [facility] Name 06/23/211339 Range of Motion Comprehensive General Range of Motion lower extremity range of motion deficits identified - Comment, General Range of Motion R LE AROM impaired 25%; L LE AROM WFL; able to actively DF/PF -[facility] Name 06/23/211339 Strength Comprehensive (MMT) General Manual Muscle Testing (MMT) Assessment lower extremity strength deficits identified - Comment, General Manual Muscle Testing (MMT) Assessment R LE functionally 4-/5; L LE functionally 4+/5; IND with SLR - Row Name 06/23/21 134 Motor Skills Therapeutic Exercise hip; knee; ankle -[facility] Name 06/23/211339 Hip (Therapeutic Exercise) Hip (Therapeutic Exercise) isometric exercises - Hip Isometrics (Therapeutic Exercise) gluteal sets; 10 repetitions -[facility] Name 06/23/211339 Knee (Therapeutic Exercise) Knee (Therapeutic Exercise) isometric exercises -LAVELL Knee Isometrics (Therapeutic Exercise) quad sets; 10 repetitions -[facility] Name 06/23/211339 Ankle (Therapeutic Exercise) Ankle (Therapeutic Exercise) AROM (active range of motion) -LAVELL Ankle AROM (Therapeutic Exercise) bilateral; dorsiflexion; plantarflexion; 10 repetitions -[facility] Name 06/23/211339 Sensory Assessment (Somatosensory) Sensory Assessment (Somatosensory) LE sensation intact - User Quezada (r) = Recorded By, (t) = Taken By, (c) = Cosigned By Initials Name Provider Type Barry Eisenberg, PT Physical Therapist Goals/Plan [facility] 06/23/211339 Bed Mobility Goal 1 (PT) Activity/Assistive Device (Bed Mobility Goal 1, PT) sit to supine/supine to sit -LAVELL [place] Level/Cues Needed (Bed Mobility Goal 1, PT) modified independence -LAVELL Time Frame (Bed Mobility Goal 1, PT) superintendent container terminal goal (LTG); 3 days -[facility] 06/23/211339 Transfer Goal 1 (PT) Activity/Assistive Device (Transfer Goal 1, PT) [id number]; walker, rolling -LAVELL [place] Level/Cues Needed (Transfer Goal 1, PT) modified independence -LAVELL Time Frame (Transfer Goal 1, PT) superintendent container terminal goal (LTG); 3 days -[facility] 06/23/211339 Gait Training Goal 1 (PT) Activity/Assistive Device (Gait Training Goal 1, PT) gait (walking locomotion); walker, rolling -LAVELL [place] Level (Gait Training Goal 1, PT) modified independence -LAVELL Distance (Gait Training Goal 1, PT) 500 -LAVELL Time Frame (Gait Training Goal 1, PT) detention goal (LTG); 3 days -[facility] 06/23/211339 ROM Goal 1 (PT) ROM Goal 1 (PT) R knee AROM 0-90 degrees -LAVELL Time Frame (ROM Goal 1, PT) long-term goal (LTG); 3 days - User Quezada (r) = Recorded By, (t) = Taken By, (c) = Cosigned By Initials Name Provider Type Barry Eisenberg, PT Physical Therapist Clinical Impression [facility] Name 06/23/21 134 Pain Additional Documentation Pain Scale: Numbers Pre/Post-Treatment (Group) -[facility] 11/01/21 1340 Pain Scale: Numbers Pre/Post-Treatment Pretreatment Pain Rating 6/10 -LAVELL Posttreatment Pain Rating 7/10 -LAVELL Pain Location - Side Right -LAVELL Pain Location - Orientation anterior -LAVELL Pain Location knee -LAVELL Pain Intervention(s) Ambulation/increased activity; Repositioned; Cold applied -LAVELL Row Name 06/23/21 1340 Therapy Assessment/Plan (PT) Patient/Family Therapy Goals Statement (PT) To return home -LAVELL Rehab Potential (PT) good, to achieve stated therapy goals -LAVELL Criteria for Skilled Interventions Met (PT) yes; meets criteria; skilled treatment is necessary -LAVELL Row Name 06/23/21 1340 Positioning and Restraints Pre-Treatment Position in bed -LAVELL Post Treatment Position chair -LAVELL In Chair notified nsg; reclined; call light within reach; encouraged to call for assist; exit alarmon; with family/caregiver; legs elevated; compression device -LAVELL User Quezada (r) = Recorded By, (t) = Taken By, (c) = Cosigned By Initials Name Provider Type Barry Eisenberg, PT Physical Therapist Outcome Measures Row Name 06/23/21 1340 How much help from another person do you currently need... Turning from your back to your side while in flat bed without using bedrails? 4 -LAVELL Moving from lying on back to sitting on the side of a flat bed without bedrails? 4 -LAVELL Moving to and from a bed to a chair (including a wheelchair)? 3 -LAVELL Standing up from a chair using your arms (e.g., wheelchair, bedside chair)? 3 -LAVELL Climbing 3-5 steps with a railing? 3 -LAVELL To walk in hospital room? 3 -LAVELL AM-PAC 6 Clicks Score (PT) 20 -LAVELL Row Name 06/23/21 1340 PADD Diagnosis 1 -LAVELL Gender 2 -LAVELL Age Group 2 -LAVELL Gait Distance 1 -LAVELL Assist Level 1 -LAVELL Home Support 3 -LAVELL PADD Score 10 -LAVELL Patient Preference home with home health -LAVELL Prediction by PADD Score directly home (with home health or out-patient rehab) - Row Name 06/23/21 1340 Functional Assessment Outcome Measure Options AM-PAC 6 Clicks Basic Mobility (PT); PADD -LAVELL User Quezada (r) = Recorded By, (t) = Taken By, (c) = Cosigned By Initials Name Provider Type Surendra Eisenbergy, PT Physical Therapist Physical Therapy Education Title: PT OT RUBBER MOLDER Therapies (Done) Topic: Physical Therapy (Done) Point: Mobility training (Done) Learning Progress Summary Patient Acceptance, E,D,H, VU by LAVELL at 06/23/2021 1340 Comment: Educated on safe sequencing with bed mobility, ambulatory/car transfers, gait training. Reviewed HEP and knee precautions via handout. Point: Home exercise program (Done) Learning Progress Summary Patient Acceptance, E,D,H, VU by LAVELL at 06/23/2021 1340 Comment: Educated on safe sequencing with bed mobility, ambulatory/car transfers, gait training. Reviewed HEP and knee precautions via handout. Point: Body mechanics (Done) Learning Progress Summary Patient Acceptance, E,D,H, VU by LAVELL at 06/23/2021 1340 Comment: Educated on safe sequencing with bed mobility, ambulatory/car transfers, gait training. Reviewed HEP and knee precautions via handout. Point: Precautions (Done) Learning Progress Summary Patient Acceptance, E,D,H, VU by LAVELL at 06/23/2021 1340 Comment: Educated on safe sequencing with bed mobility, ambulatory/car transfers, gait training. Reviewed HEP and knee precautions via handout. User Quezada Initials Effective Dates Name Provider Type Discipline 02/05/21 - Barry Gonzalez, PT Physical Therapist PT PT Recommendation and Plan Planned Therapy Interventions (PT): balance training, bed mobility training, home exercise program,patient/family education, gait training, transfer training, ROM (range of motion), stair training, strengthening Plan of Care Reviewed With: patient Progress: improving Outcome Summary: PT eval complete. Pt ambulated 360 feet using RW, CGA, and one person to manage equipment. Gait limited by fatigue. Bed mobility performed with supervision and STS with CGA. No knee buckling noted. Pt IND with SLR. Will assess R knee AROM POD#1 if pt does not d/c today. Reviewed HEP and knee precautions via handout. Educated on safe car transfers. PADD score = 10. ADLs assessed, pt does not require OT eval tonight. Functionally, pt safe to d/c home with assist today from a PT perspective. Recommend HHPT. Time Calculation: PT Charges Row Name 06/23/21 1340 Time Calculation Start Time 1340 - PT Received On 06/23/21 -LAVELL PT Goal Re-Cert Due Date 07/03/21 -LAVELL Time Calculation- PT Total Timed Code Minutes- PT 10 minute(s) -LAVELL Timed Charges 04957 - PT Therapeutic Exercise Minutes 2 -LAVELL 94213 - Gait Training Minutes 8 -LAVELL Untimed Charges PT Eval/Re-eval Minutes 34 -LAEVLL Total Minutes Timed Charges Total Minutes 10 -LAVELL Untimed Charges Total Minutes 34 -LAVELL Total Minutes 44 -LAVELL User Quezada (r) = Recorded By, (t) = Taken By, (c) = Cosigned By Initials Name Provider Type Barry Eisenberg, PT Physical Therapist Therapy Charges for Today Code Description Service Date Service Provider Modifiers Qty [id number] HC GAIT TRAINING EA 15 MIN 06/23/2021 Barry Gonzalez, PT GP 1 [id number] HC PT EVAL LOW COMPLEXITY 3 06/23/2021 Barry Gonzalez, PT GP 1 PT G-Codes Outcome Measure Options: AM-PAC 6 Clicks Basic Mobility (PT), PADD AM-PAC 6 Clicks Score (PT): 20 Barry Gonzalez PT 06/23/2021 documented in this encounter Plan of Treatment Scheduled Referrals Name Type Priority Associated Diagnoses Order Schedule Ambulatory Referral to Physical Therapy Evaluate and treat (s/p right TKR), POST OP, Ortho; Full weight bearing Outpatient Referral Routine S/P total knee arthroplasty, right Arthritis of right knee Ordered: 06/23/2021 documented as of this encounter Procedures Procedure Name Priority Date/Time Associated Diagnosis Comments PREPARE RBC Routine 06/26/2021 6:47 AM EDT XR KNEE 1 OR 2 VW RIGHT STAT 06/23/2021 12:48 PM EDT RI ARTHRP KNE CONDYLE&PLATU MEDIAL&LAT COMPARTMENTS 06/23/2021 9:56 AM EDT Special Needs SPINAL WITH BLOCK, MARCIAL AND NEPHEW, ONQ PUMP, PA NEEDED* POTASSIUM Routine 06/23/2021 7:59 AM EDT TYPE AND SCREEN STAT 06/23/2021 7:51 AM EDT documented in this encounter Results * Prepare RBC, 2 Units (06/26/2021 6:47 AM EDT) Product Code [id number] [facility] BB LABORATORY Unit Number [id number]-* BA [facility] LABORATORY UNIT ABO O [facility] BB LABORATORY UNIT RH POS [facility] BB LABORATORY Crossmatch Interpretation Compatible [facility] BB LABORATORY Dispense Status RE [facility] BB LABORATORY Blood Expiration Date [facility] BB LABORATORY Blood Type Barcode 5100 [facility] BB LABORATORY Product Code [id number] [facility] BB LABORATORY Unit Number [id number] [facility] BB LABORATORY UNIT ABO O [facility] BB LABORATORY UNIT RH POS [facility] BB LABORATORY Crossmatch Interpretation Compatible [facility] LABORATORY Dispense Status RE [facility] BB LABORATORY Blood Expiration Date [facility] BB LABORATORY Blood Type Barcode 5100 [facility] BB LABORATORY Other Topography unknown / Unknown 06/23/2021 8:06 AM EDT Dashawn Escobar MD BLOOD BANK PRODUCT ORDERABLES E dited Result - Final [facility] LABORATORY
[address] [place] [address], * XR Knee 1 or 2 View Right (06/23/2021 12:48 PM EDT) Anatomical Region Laterality Modality Lower Extremities, Knee Right Radiogra phic Imaging 06/23/2021 1:25 PM EDT Impressions 06/23/2021 3:49 PM EDT Status post total right knee arthroplasty with no hardware complication or malalignment identified of the prosthesis. D: ??06/23/2021 E: ??06/23/2021 This report was finalized on 06/23/2021 3:[address] Suri Santos MD. Narrative 06/23/2021 3:49 PM EDT EXAMINATION: XR KNEE 1 OR 2 VW, RIGHT-06/23/2021: INDICATION: Post-Op Knee Arthoplasty. COMPARISON: NONE. FINDINGS: Two views of the right knee reveal the patient to be status post total right knee arthroplasty. Postsurgical changes seen in the soft tissues. No hardware complication or malalignment identified of the prosthesis. Procedure Note Suri Santos MD - 06/23/2021 EXAMINATION: XR KNEE 1 OR 2 VW, RIGHT-06/23/2021: INDICATION: Post-Op Knee Arthoplasty. COMPARISON: NONE. FINDINGS: Two views of the right knee reveal the patient to be status post total right knee arthroplasty. Postsurgical changes seen in the soft tissues. No hardware complication or malalignment identified of the prosthesis. IMPRESSION: Status post total right knee arthroplasty with no hardware complication or malalignment identified of the prosthesis. E: 06/23/2021 This report was finalized on 06/23/2021 3:[address] Suri Santos MD. Dashawn Escobar MD IMG DIAGNOSTIC IMAGING ORDERABL ES Final Result * Potassium (06/23/2021 7:59 AM EDT) Pathologist [facility] Potassium 3.5 3.5 - 5.2 mmol/L 06/23/2021 8:17 AM EDT [facility] LABORATORY Blood Line / Unknown 06/23/2021 7: 59 AM EDT 06/23/2021 7:59 AM EDT Hipolito Layne MD LAB BLOOD ORDERABLES Final Resu lt [facility] LABORATORY
[address] [place] [address], * Type & Screen (06/23/2021 7:51 AM EDT) ABO Type O 06/23/2021 8:53 AM EDT [facility] LABORATORY RH type Positive 06/23/2021 8:53 AM EDT [facility] LABOR[facility]ORY Antibody Screen Negative 06/23/2021 8:53 AM EDT [facility] LAB[facility]ORY T&S Expiration Date 06/26/2021 11:59:59 PM 06/23/2021 8:53 AM EDT [facility] LABORATORY Blood 06/23/2021 7:51 AM EDT 06/23/2021 8:06 AM EDT us Dashawn Escobar MD BLOOD BANK TEST ORDERABLES Edit ed Result - Final [facility] LABORATORY
[address] [place] [address], documented in this encounter Visit Diagnoses Not on filedocumented in this encounter Admitting Diagnoses Diagnosis Arthritis of right knee documented in this encounter Administered Medications Inactive Administered Medications - up to 3 most recent administrations Medication Order MAR Action Action Date Dose Rate Site acetaminophen (TYLENOL) tablet 1,000 mg 1,000 mg, Oral, Every 8 Hours, First dose on Wed06/23/21 at 1400, Do not exceed 4 grams of acetaminophen in a 24 hr period. Max dose of 2gm for AST/ALT greater than 120 units/L If given for pain, use the following pain scale: Mild Pain = Pain Score of 1-3, CPOT 1-2 Moderate Pain = Pain Score of 4-6, CPOT 3-4 Severe Pain = Pain Score of 7-10, CPOT 5-8 Given 06/23/2021 1:41 PM EDT 1,000 mg aspirin tablet 325 mg 325 mg, Oral, Daily, First dose on Wed06/24/21 at 0900, Do not exceed 4 grams of aspirin in a 24 hr period. If given for pain, use the following pain scale: Mild Pain = Pain Score of 1-3, CPOT 1-2 Moderate Pain = Pain Score of 4-6, CPOT 3-4 Severe Pain = Pain Score of 7-10, CPOT 5-8 bupivacaine (PF) 0.5 % 20 mL, EPINEPHrine PF 0.1 mL mixture As Needed, Starting on Wed06/23/21 at 1018 Given 06/23/2021 10:18 AM EDT 20.1 mL Knee Right ceFAZolin in Sodium Chloride (ANCEF) IVPB solution 3 g 3 g, Intravenous, at 200 mL/hr, Administer over 30 Minutes, Every 8 Hours, First dose on Wed06/23/21 at 1800, For 2 doses, Time first dose from pre-op dose. Caution: Look alike/sound alike drug alert. Refrigerate, Indications: Surgical ProphylaxisIndications :Surgical Prophylaxis New Bag 06/23/2021 4:07 PM EDT 3 g 200 mL/hr famotidine (PEPCID) tablet 20 mg 20 mg, Oral, Once, On Wed06/23/21 at 0719, For 1 dose Given 06/23/2021 7:42 AM EDT 20 mg HYDROmorphone (DILAUDID) injection 0.5 mg 0.5 mg, Intravenous, Every 2 Hours PRN, Severe Pain, Starting on Wed06/23/21 at 1312, For 10 days, If given for pain, use the following pain scale: Mild Pain = Pain Score of 1-3, CPOT 1-2 Moderate Pain = Pain Score of 4-6, CPOT 3-4 Severe Pain = Pain Score of 7-10, CPOT 5-8 labetalol (NORMODYNE,TRANDATE) injection 10 mg 10 mg, Intravenous, Every 4 Hours PRN, High Blood Pressure, SBP over 170 or DBP over 105, Starting on Wed06/23/21 at 1342, For 3 doses, As needed for SBP greater than 170 or DBP greater than 105 Give by slow IV Push each 20mg (or less) over 2 minutes lactated ringers infusion 9 mL/hr, Intravenous, Continuous, Starting on Wed06/23/21 at 0719, May switch to NS IV at O if renal / if indicated Currently Infusing 06/23/2021 10:12 AM EDT 9 mL/hr New Bag 06/23/2021 8:04 AM EDT 9 mL/hr 9 mL/hr lactated ringers infusion 100 mL/hr, Intravenous, Continuous, Starting on Wed06/23/21 at 1231 lidocaine PF 1% (XYLOCAINE) injection 0.5 mL 0.5 mL, Injection, Once As Needed, IV Start, Starting on Wed06/23/21 at 0717, For 1 dose Given 06/23/2021 7:42 AM EDT 0.5 mL meloxicam (MOBIC) tablet 15 mg 15 mg, Oral, Daily, First dose on Wed06/23/21 at 1400, Take with food. If given for pain, use the following pain scale: Mild Pain = Pain Score of 1-3, CPOT 1-2 Moderate Pain = Pain Score of 4-6, CPOT 3-4 Severe Pain = Pain Score of 7-10, CPOT 5-8 Given 06/23/2021 1:42 PM EDT 15 mg mupirocin (BACTROBAN) 2 % ointment 1 application 1 application , Topical, Once, On Wed06/23/21 at 0723, For 1 dose, Apply to bilateral nares {BKC} Given 06/23/2021 7:42 AM EDT 1 application naloxone (NARCAN) injection 0.1 mg 0.1 mg, Intravenous, Every 5 Minutes PRN, Respiratory Depression, Starting on Wed06/23/21 at 1312, If respiratory rate is less than 8 breaths/minute or patient is difficult to arouse stop any narcotics and contact physician. Administer slow IV push. Repeat as ordered until patient's respiratory rate is greater than 12 breaths/minute. ondansetron (ZOFRAN) injection 4 mg 4 mg, Intravenous, Every 6 Hours PRN, Nausea, Vomiting, Starting on Wed06/23/21 at 1312, If BOTH ondansetron (ZOFRAN) and promethazine (PHENERGAN) are ordered use ondansetron first and THEN promethazine IF ondansetron is ineffective. ondansetron (ZOFRAN) tablet 4 mg 4 mg, Oral, Every 6 Hours PRN, Nausea, Vomiting, Starting on Wed06/23/21 at 1312, If BOTH ondansetron (ZOFRAN) and promethazine (PHENERGAN) are ordered use ondansetron first and THEN promethazine IF ondansetron is ineffective. oxyCODONE (ROXICODONE) immediate release tablet 5 mg 5 mg, Oral, Every 4 Hours PRN, Moderate Pain, Starting on Wed06/23/21 at 1312, For 7 days, {JOSE} If given for pain, use the following pain scale: Mild Pain = Pain Score of 1-3, CPOT 1-2 Moderate Pain = Pain Score of 4-6, CPOT 3-4 Severe Pain = Pain Score of 7-10, CPOT 5-8 Given 06/23/2021 1:42 PM EDT 5 mg polyethylene glycol (MIRALAX) packet 17 g 17 g, Oral, Daily, First dose on Wed06/23/21 at 1400, For 5 days, Mix dose in 6-8 ounces of water. Use 4-8 ounces of water, tea, or juice for each 17 gram dose., Indications: Constipation, As needed for constipationIndications:Constip ation,As needed for constipation pregabalin (LYRICA) capsule 75 mg 75 mg, Oral, Once, On Wed06/23/21 at 0723, For 1 dose, {JOSE} Given 06/23/2021 7:42 AM EDT 75 mg promethazine (PHENERGAN) tablet 12.5 mg 12.5 mg, Oral, Every 6 Hours PRN, Nausea, Vomiting, If BOTH ondansetron (ZOFRAN) and promethazine (PHENERGAN) are ordered use ondansetron first and THEN promethazine IF ondansetron is ineffective., Starting on Wed06/23/21 at 1312, {BKC} ropivacaine (Naropin) 0.2% in NS infusion (ARROW Pump) 10 mL/hr, Peripheral Nerve, Continuous, Starting on Wed06/23/21 at 1041, For pain scale 5 or greater, increase rate to 14 mL/hr for 2 hours then return to original rate. Can be repeated every 12 hours. If no improvement, call the Acute Pain Service at [phone], if no response call the Operating Rm desk. Thank you, Indications: Acute PainIndications:Acute Pain New Bag 06/23/2021 11:55 AM EDT 10 mL/hr 10 mL/hr sodium chloride 0.9 % bolus 500 mL 500 mL, Intravenous, at 1,000 mL/hr, Administer over 0.5 Hours, 3 Times Daily PRN, SBP less than 95 or urine output less than 30 mL/h x 2 hours, Starting on Wed06/23/21 at 1342, For 3 days sodium chloride 0.9 % flush 3 mL 3 mL, Intravenous, Every 12 Hours Scheduled, First dose on Wed06/23/21 at 1400 sodium chloride 0.9 % flush 3-10 mL 3-10 mL, Intravenous, As Needed, Line Care, Starting on Wed06/23/21 at 1312 sodium chloride 0.9 % infusion 150 mL/hr, Intravenous, Continuous, Starting on Wed06/23/21 at 1400 sodium chloride 3,000 mL with povidone-iodine 45 mL irrigation As Needed, Starting on Wed06/23/21 at 1041 Given 06/23/2021 10:41 AM EDT 3,045 mL sterile water irrigation solution As Needed, Starting on Wed06/23/21 at 1011 Given 06/23/2021 10:11 AM EDT 1,000 mL documented in this encounter Active and Recently Administered Medications Times are shown in EDT. Scheduled Medication Order 06/21/2021 06/22/2021 06/23/2021 acetaminophen (TYLENOL) tablet 1,000 mg 1,000 mg, Oral, Every 8 Hours, First dose on Wed06/23/21 at 1400, Do not exceed 4 grams of acetaminophen in a 24 hr period. Max dose of 2gm for AST/ALT greater than 120 units/L If given for pain, use the following pain scale: Mild Pain = Pain Score of 1-3, CPOT 1-2 Moderate Pain = Pain Score of 4-6, CPOT 3-4 Severe Pain = Pain Score of 7-10, CPOT 5-8 1341 (Given - Provid er: Shahnaz Tafoya RN) aspirin tablet 325 mg 325 mg, Oral, Daily, First dose on Wed06/24/21 at 0900, Do not exceed 4 grams of aspirin in a 24 hr period. If given for pain, use the following pain scale: Mild Pain = Pain Score of 1-3, CPOT 1-2 Moderate Pain = Pain Score of 4-6, CPOT 3-4 Severe Pain = Pain Score of 7-10, CPOT 5-8 ceFAZolin in Sodium Chloride (ANCEF) IVPB solution 3 g 3 g, Intravenous, at 200 mL/hr, Administer over 30 Minutes, Every 8 Hours, First dose on Wed06/23/21 at 1800, For 2 doses, Time first dose from pre-op dose. Caution: Look alike/sound alike drug alert. Refrigerate, Indications: Surgical Prophylaxis 1607 (New Bag - Prov ider: Shahnaz Tafoya RN - Comment: GIVEN PER DR Glass) ceFAZolin in Sodium Chloride (ANCEF) IVPB solution 3 g (COMPLETED) 3 g, Intravenous, at 200 mL/hr, Administer over 30 Minutes, Once, On Wed06/23/21 at 0950, For 1 dose, Caution: Look alike/sound alike drug alert. Refrigerate, Indications: Surgical Prophylaxis 1012 (Given - Provid er: Cash Deleon CRNA) famotidine (PEPCID) tablet 20 mg (COMPLETED) 20 mg, Oral, Once, On Wed06/23/21 at 0719, For 1 dose 0742 (Given - Provid er: Brooke Marcial, NATHAN) meloxicam (MOBIC) tablet 15 mg 15 mg, Oral, Daily, First dose on Wed06/23/21 at 1400, Take with food. If given for pain, use the following pain scale: Mild Pain = Pain Score of 1-3, CPOT 1-2 Moderate Pain = Pain Score of 4-6, CPOT 3-4 Severe Pain = Pain Score of 7-10, CPOT 5-8 1342 (Given - Provid er: Shahnaz Tafoya RN) mupirocin (BACTROBAN) 2 % ointment 1 application (COMPLETED) 1 application , Topical, Once, On Wed06/23/21 at 0723, For 1 dose, Apply to bilateral nares {BKC} 0742 (Given - Provid er: Brooke Marcial RN) polyethylene glycol (MIRALAX) packet 17 g 17 g, Oral, Daily, First dose on Wed06/23/21 at 1400, For 5 days, Mix dose in 6-8 ounces of water. Use 4-8 ounces of water, tea, or juice for each 17 gram dose., Indications: Constipation, As needed for constipation 1351 (Not Given - Pr ovider: Shahnaz Tafoya RN - Reason: Patient/family refused) pregabalin (LYRICA) capsule 75 mg (COMPLETED) 75 mg, Oral, Once, On Wed06/23/21 at 0723, For 1 dose, {JOSE} 0742 (Given - Provid er: Brooke Marcial RN) sodium chloride 0.9 % flush 3 mL 3 mL, Intravenous, Every 12 Hours Scheduled, First dose on Wed06/23/21 at 1400 1400 (Due) tranexamic acid 1000 mg in 100 ml NS Mini-bag plus (COMPLETED) 1,000 mg, Intravenous, Administer over 30 Minutes, Once, On Wed06/23/21 at 1014, For 1 dose, Give prior to incision. Break seal and mix to activate vial before using. Max. Dose for IV use - 1000mg. 1024 (Given - Provid er: Cash Deleon CRNA) tranexamic acid 1000 mg in 100 ml NS Mini-bag plus (COMPLETED) 1,000 mg, Intravenous, Administer over 30 Minutes, Once, On Wed06/23/21 at 1014, For 1 dose, Hip Replacement: Give at start of incision closure. Knee Replacement: Give 5-10 minutes before tourniquet release. Break seal and mix to activate vial before using. Max. Dose for IV use - 1000mg. 1122 (Given - Provid er: Cash Deleon CRNA) Continuous Medication Order 06/21/2021 06/22/2021 06/23/2021 lactated ringers infusion 9 mL/hr, Intravenous, Continuous, Starting on Wed06/23/21 at 0719, May switch to NS IV at KVO if renal / if indicated 0804 (New Bag - Prov ider: Brooke Marcial RN)1012 (Currently Infusing - Provider: Cash Deleon CRNA)1100 (Anesthesia Volume Adjustment - Provider: Cash Deleon CRNA) lactated ringers infusion 100 mL/hr, Intravenous, Continuous, Starting on Wed06/23/21 at 1231 1231 (Due) ropivacaine (Naropin) 0.2% in NS infusion (ARROW Pump) 10 mL/hr, Peripheral Nerve, Continuous, Starting on Wed06/23/21 at 1041, For pain scale 5 or greater, increase rate to 14 mL/hr for 2 hours then return to original rate. Can be repeated every 12 hours. If no improvement, call the Acute Pain Service at [phone], if no response call the Operating Rm desk. Thank you, Indications: Acute Pain 1155 (New Bag - Prov ider: Cash Deleon CRNA) sodium chloride 0.9 % infusion 150 mL/hr, Intravenous, Continuous, Starting on Wed06/23/21 at 1400 1400 (Due) PRN Medication Order 06/21/2021 06/22/202106/23/2021 bupivacaine (PF) 0.5 % 20 mL, EPINEPHrine PF 0.1 mL mixture (CANCELED) As Needed, Starting on Wed06/23/21 at 1018 1018 (Given - Provid er: Dashawn Escobar MD - Comment: given to sterile field) HYDROmorphone (DILAUDID) injection 0.5 mg(Linked Group 1) 0.5 mg, Intravenous, Every 2 Hours PRN, Severe Pain, Starting on Wed06/23/21 at 1312, For 10 days, If given for pain, use the following pain scale: Mild Pain = Pain Score of 1-3, CPOT 1-2 Moderate Pain = Pain Score of 4-6, CPOT 3-4 Severe Pain = Pain Score of 7-10, CPOT 5-8 labetalol (NORMODYNE,TRANDATE) injection 10 mg 10 mg, Intravenous, Every 4 Hours PRN, High Blood Pressure, SBP over 170 or DBP over 105, Starting on Wed06/23/21 at 1342, For 3 doses, As needed for SBP greater than 170 or DBP greater than 105 Give by slow IV Push each 20mg (or less) over 2 minutes lidocaine PF 1% (XYLOCAINE) injection 0.5 mL (COMPLETED) 0.5 mL, Injection, Once As Needed, IV Start, Starting on Wed06/23/21 at 0717, For 1 dose 0742 (Given - Provid er: Brooke Marcial RN) naloxone (NARCAN) injection 0.1 mg(Linked Group 1) 0.1 mg, Intravenous, Every 5 Minutes PRN, Respiratory Depression, Starting on Wed06/23/21 at 1312, If respiratory rate is less than 8 breaths/minute or patient is difficult to arouse stop any narcotics and contact physician. Administer slow IV push. Repeat as ordered until patient's respiratory rate is greater than 12 breaths/minute. ondansetron (ZOFRAN) injection 4 mg(Linked Group 2) 4 mg, Intravenous, Every 6 Hours PRN, Nausea, Vomiting, Starting on Wed06/23/21 at 1312, If BOTH ondansetron (ZOFRAN) and promethazine (PHENERGAN) are ordered use ondansetron first and THEN promethazine IF ondansetron is ineffective. ondansetron (ZOFRAN) tablet 4 mg(Linked Group 2) 4 mg, Oral, Every 6 Hours PRN, Nausea, Vomiting, Starting on Wed06/23/21 at 1312, If BOTH ondansetron (ZOFRAN) and promethazine (PHENERGAN) are ordered use ondansetron first and THEN promethazine IF ondansetron is ineffective. oxyCODONE (ROXICODONE) immediate release tablet 5 mg 5 mg, Oral, Every 4 Hours PRN, Moderate Pain, Starting on Wed06/23/21 at 1312, For 7 days, {JOSE} If given for pain, use the following pain scale: Mild Pain = Pain Score of 1-3, CPOT 1-2 Moderate Pain = Pain Score of 4-6, CPOT 3-4 Severe Pain = Pain Score of 7-10, CPOT 5-8 1342 (Given - Provid er: Shahnaz Tafoya RN) promethazine (PHENERGAN) tablet 12.5 mg 12.5 mg, Oral, Every 6 Hours PRN, Nausea, Vomiting, If BOTH ondansetron (ZOFRAN) and promethazine (PHENERGAN) are ordered use ondansetron first and THEN promethazine IF ondansetron is ineffective., Starting on Wed06/23/21 at 1312, {BKC} sodium chloride 0.9 % bolus 500 mL 500 mL, Intravenous, at 1,000 mL/hr, Administer over 0.5 Hours, 3 Times Daily PRN, SBP less than 95 or urine output less than 30 mL/h x 2 hours, Starting on Wed06/23/21 at 1342, For 3 days sodium chloride 0.9 % flush 3-10 mL 3-10 mL, Intravenous, As Needed, Line Care, Starting on Wed06/23/21 at 1312 sodium chloride 3,000 mL with povidone-iodine 45 mL irrigation (CANCELED) As Needed, Starting on Wed06/23/21 at 1041 1041 (Given - Provid er: Dashawn Escobar MD) sterile water irrigation solution (CANCELED) As Needed, Starting on Wed06/23/21 at 1011 1011 (Given - Provid er: Dashawn Escobar MD) Linked Groups Order Group 1: HYDROmorphone (DILAUDID) injection 0.5 mgJump to med 0.5 mg, Intravenous, Every 2 Hours PRN, Severe Pain, Starting on Wed06/23/21 at 1312, For 10 days, If given for pain, use the following pain scale: Mild Pain = Pain Score of 1-3, CPOT 1-2 Moderate Pain = Pain Score of 4-6, CPOT 3-4 Severe Pain = Pain Score of 7-10, CPOT 5-8 And naloxone (NARCAN) injection 0.1 mgJump to med 0.1 mg, Intravenous, Every 5 Minutes PRN, Respiratory Depression, Starting on Wed06/23/21 at 1312, If respiratory rate is less than 8 breaths/minute or patient is difficult to arouse stop any narcotics and contact physician. Administer slow IV push. Repeat as ordered until patient's respiratory rate is greater than 12 breaths/minute. Group 2: ondansetron (ZOFRAN) tablet 4 mgJump to med 4 mg, Oral, Every 6 Hours PRN, Nausea, Vomiting, Starting on Wed06/23/21 at 1312, If BOTH ondansetron (ZOFRAN) and promethazine (PHENERGAN) are ordered use ondansetron first and THEN promethazine IF ondansetron is ineffective. Or ondansetron (ZOFRAN) injection 4 mgJump to med 4 mg, Intravenous, Every 6 Hours PRN, Nausea, Vomiting, Starting on Wed06/23/21 at 1312, If BOTH ondansetron (ZOFRAN) and promethazine (PHENERGAN) are ordered use ondansetron first and THEN promethazine IF ondansetron is ineffective. documented in this encounter Care Teams Software Maintenance Engineer Relationship Specialty Start Date End Date Garrett Pulido MD [address] [facility] [address] [place] [id number] PCP - General Internal Medicine 03/31/18 documented as of this encounter
--- OUTSIDE RECORDS SUMMARY | 2024-07-10 08:32 | XMS_ITS | Encounter Summary ---
Author Organization [facility] Address [address] [place] [address] Care Team Providers Care Brim And Crown Presser Name Role Phone Garrett Pulido MD Primary Care Provider [phone] Reason for Visit * Auth/Cert Specialty Diagnoses / Procedures Referred By Contmacey t Referred To Contact Diagnoses . Procedures OR TOTAL KNEE ARTHROPLASTY TOTAL KNEE ARTHROPLASTY RIGHT Referral ID Status Reason Start Date Expiration Date Visits Re quested Visits Authorized [id number] 1 1 Encounter Details Date Type Department Care Team (Latest Contact Info) Description 06/23/2021 10:40 AM EDT Anesthesia Event Converted [facility] ANESTHESIA [address] [place] [address] Social History Tobacco Use Types Packs/Day Years [...] on file documented as of this encounter Plan of Treatment Not on file documented as of this encounter Procedures Procedure Name Priority Date/Time Associated Diagnosis Comments ANESTHESIA PERIPHERAL BLOCK Routine 06/23/2021 11:56 AM EDT documented in this encounter Results * BH AN PERIPHERAL BLOCK CATHETER (06/23/2021 11:56 AM EDT) Narrative Cash Deleon CRNA - 06/23/2021 11:56 AM EDT Cash Deleon CRNA ? 06/23/2021 11:56 AM Adductor canal Patient reassessed immediately prior to procedure Patient location during procedure: post-op Reason for block: at surgeon's request and post-op pain management Performed by MAINTENANCE MANAGER: Derick Leroy CRNA Assisted by: Latosha Pat RN Preanesthetic Checklist Completed: patient identified, IV checked, site marked, risks and benefits discussed, surgical consent, monitors and equipment checked, pre-op evaluation and timeout performed Prep: Pt Position: supine Sterile barriers:cap, gloves, mask and sterile barriers Prep: ChloraPrep Patient monitoring: blood pressure monitoring, continuous pulse oximetry and EKG Procedure Performed under: spinal Guidance:ultrasound guided Images:still images obtained, printed/placed on chart Laterality:right Block Type:adductor canal block Injection Technique:catheter Needle Type:Tuohy and echogenic Needle Gauge:18 G Resistance on Injection: none Catheter Size:20 G (20g) Cath Depth at skin: 10 cm Medications Used: bupivacaine PF (MARCAINE) 0.25 % injection, 30 mL Med administered at 06/23/2021 11:56 AM Post Assessment Injection Assessment: negative aspiration for heme, incremental injection and no paresthesia on injection Patient Tolerance:comfortable throughout block Complications:no Additional Notes Procedure: ? The pt was placed in the Supine position. ??The Insertion site was ?? prepped and Draped in sterile fashion. ??The pt was anesthetized with ??IV Sedation( see meds). ??Skin and cutaneous tissue was infiltrated and anesthetized with 1% Lidocaine 3 mls via a 25g needle. ??A BBraun 4 inch 18g echogenic needle was then ??inserted approximately midline, mid-thigh and advanced In-plane with Ultrasound guidance. ??Normal Saline PSF was utilized for hydrodissection of tissue. ??The Vastus medialis and Sartorius muscle where visualized and the needle tip was placed in the adductor canal, ??lateral to the femoral artery. ??LA injection spread was visualized, injection was incremental 1-5ml, injection pressure was normal or little, no intraneural injection, no vascular injection. ??LA dose was injected thru the needle(see dose above). ??A BBraun 20g wire stylet catheter was placed via the needle with ultrasound visualization and confirmation with NS fluid bolus. The catheter insertion site was sealed with exofin tissue adhesive. The labeled catheter was then coiled and secured to skin with benzoin, ??steristrips and CHG transparent dressing. ?? Appropriate labels were applied. ??Thank you. us Jann Freedman MD ANESTHESIA ORDERABLES Edited Result - Final documented in this encounter Visit Diagnoses Not on filedocumented in this encounter Care Teams Brim And Crown Presser Relationship Specialty Start Date End Date Garrett Pulido MD [facility] [address] [place] [address] PCP - General Internal Medicine 03/31/18 documented as of this encounter
--- OUTSIDE RECORDS SUMMARY | 2024-07-10 08:32 | XMS_ITS | Encounter Summary ---
Author Organization [facility] [place] [address] Care Team Providers Care High School Coordinator Name Role Phone Dashawn Morgan MD Primary Care Provider Encounter Details Date Type Department Care Team (Latest Contact Info) Description 05/10/2024 Travel Social History Tobacco Use Types Packs/Day Years Used Date Smoking Tobacco: Every Day Cigarettes Smokeless Tobacco: Never Alcohol Use Standard Drinks/Week Comments Not Currently [...] on filedocumented in this encounter Care Teams High School Coordinator Relationship Specialty Start Date End Date Dashawn Morgan MD [address] [facility] [place] [address] PCP - General Internal Medicine 05/10/24 documented as of this encounter
--- OUTSIDE RECORDS SUMMARY | 2024-07-10 08:32 | XMS_ITS | Encounter Summary ---
Author Organization [email or web address] Address [address] [place] [address] Care Team Providers Care Technical Planner Name Role Phone Unavailable Primary Care Provider Unavailabl e Encounter Details Date Type Department Care Team (Late st Contact Info) Description 11/17/2021 Transcribed Document [facility] Family Medicine [facility] [place] [address] ProviderHector MD [address] [place], [place] [id number] Social History Tobacco Use Types Packs/Day Years Used Date Smoking Tobacco: Never Assessed Sex and Gender Information Value Date Recorded Sex Assigned at Male 02/17/2022 9:03 PM CDT Legal Sex Male 9:03 PM CDT Gender Identity Male 02/17/2022 9:03 PM CDT Sexual Orientation Not on file documented as of this encounter Miscellaneous Notes * Cerner Conversion Note - Historical ProviderMD - 11/17/2021 10:53 AM CDT DATE OF SERVICE: 11/17/2021 SLEEP MEDICINE CONSULTATION PRIMARY PROVIDER: Dr. Jann Shanks. HISTORY OF PRESENT ILLNESS: Patient is a 56-year-old gentleman who has difficulty initiating and maintaining sleep. He goes to sleep about midnight and wakes up in 2 hours, and cannot go back to sleep for several more hours. He only averages 4.5 hours sleep at night because of this. He naps every afternoon for about an hour. He says that started since COVID and since his knee replacement. He does snore. He awakens with a dry mouth and has a sore throat in the morning. He denies daytime sleepiness. He denies hypnagogic hallucinations or parasomnias. He has always slept a short period of time at night. PAST MEDICAL HISTORY: Significant for COPD, coronary artery disease, heart failure, reflux, and hypertension. PAST SURGICAL HISTORY: Heart stent. FAMILY HISTORY: Positive for heart disease, hypertension. REVIEW OF SYSTEMS: Intake questionnaire is reviewed. SOCIAL HISTORY: He smokes 2 packs of the day. He does not drink alcohol. He uses marijuana to help him sleep and drinks 6 caffeinated beverages a day. Bed partner questionnaire is reviewed, and he does snore in all sleep positions. CURRENT MEDICATIONS: 1. Allopurinol. 2. Meloxicam. 3. Carvedilol. 4. Clopidogrel. 5. Losartan and hydrochlorothiazide. 6. Amlodipine. 7. Nifedipine. 8. Edarbi. PHYSICAL EXAMINATION: GENERAL: The patient is very hoarse. He appears somewhat older than his stated age. VITAL SIGNS: He is 6 feet tall, weighs 269, BMI is 36, neck circumference 18. Respiratory rate is 20, O2 sats 97, blood pressure is 151/100, pulse is 81. 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 He does wear a zamorano. Uvula is swollen. LUNGS: Decreased breath sounds, but no active wheezing is heard. HEART: Without murmurs. EXTREMITIES: 2+ pedal edema. IMPRESSION: 1. Snoring. 2. Insomnia. 3. Hypertension. 4. Congestive heart failure. 5. Coronary artery disease. 6. Chronic obstructive pulmonary disease. 7. Obesity. RECOMMENDATION: In-lab polysomnogram given his history of congestive heart failure. We had a long discussion about the physiologic implications of sleep apnea and I think he is at high risk for sleep apnea. He does not feel that he has it because he is not aware of any breathing issues. We did discuss the fact that treatment of sleep apnea would be helpful to his other medical problems. Additionally, an Ambien 5 mg was E-prescribed to [facility] in [place] for the night of this study. /[id number] Lucille MD ZAIDA Vazquez/JORGE / ZAIDA / MODL /[id number] CC: MD Dr. Jann Cook Electronically signed by [facility] Conversion Diplomatic Courier Cerner at 12/07/2022 6:36 PM CDT documented in this encounter Plan of Treatment Not on file documented as of this encounter Visit Diagnoses Not on filedocumented in this encounter
--- OUTSIDE RECORDS SUMMARY | 2024-07-10 08:32 | XMS_ITS | Encounter Summary ---
Author Organization [facility] Address [address] [place] [address] Care Team Providers Care Submarine Worker Name Role Phone Garrett Pulido MD Primary Care Provider [phone] Reason for Visit * Auth/Cert Specialty Diagnoses / Procedures Referred By Contac t Referred To Contact Diagnoses . Procedures DE TOTAL KNEE ARTHROPLASTY TOTAL KNEE ARTHROPLASTY RIGHT Referral ID Status Reason Start Date Expiration Date Visits Re quested Visits Authorized [id number] 1 1 Encounter Details Date Type Department Care Team (Late st Contact Info) Description 06/23/2021 10:12 AM EDT Anesthesia Event [facility] OR [address] [place] [address] Jann Freedman MD [address] [place] [address] Hipolito Layne MD [address] [place] [address] Anesthesia Record Procedure Summary Procedure Name Responsible Anesthesiologist Anesthesia Start Time Anesthesia Stop Time TOTAL KNEE ARTHROPLASTY RIGHT (Right: Knee) Jann Freedman MD 06/23/21 1012 06/23/21 1157 Events Date Time Event Comment 06/23/2021 0845 1000 AN Equip Check 1012 An Start Data 1012 An Start The patient was reevaluated immediately before moderate or deep sedation use and before anesthesia induction. 1019 Spinal Placed 1151 an stop data 1156 Handoff to RN The following has been completed: 1. Identification of Patient, [place] family member(s) or patient surrogate 2. Identification of the responsible Practitioner (primary service) 3. Discussion of the pertinent/attainable medical history 4. Discussion of the surgical/procedure course (procedure, reason for surgery, procedure performed) 5. Intraoperative anesthetic management and issue/concerns to include things such as airway, hemodynamics, narcotic, sedation level and paralytic management and intravenous fluids/blood products and urine output during the procedure 6. Expectations/Plans for the early post-procedure period to include things such as anticipated course (anticipatory guidance), complications, need for laboratory or ECG and medication administration 7. Opportunity for questions and acknowledgment of understanding of report from the receiving PACU/ICU team 1157 An Stop Meds Name Total propofol (DIPRIVAN) infusion 10 mg/mL 10 0 mL 1,514.7 mg dexamethasone (DECADRON) 4 mg/mL 8 mg ondansetron 2 mg/mL 4 mg ceFAZolin in Sodium Chloride (ANCEF) IVP B solution 3 g 3 g lidocaine PF (XYLOCAINE) injection 1% 2 mL tranexamic acid 1000 mg in 100 ml NS Min i-bag plus 1,000 mg tranexamic acid 1000 mg in 100 ml NS Min i-bag plus 1,000 mg bupivacaine (MARCAINE) 0.5 % injection 2 mL propofol (DIPRIVAN) 10 mg/mL injection 5 0 mg ropivacaine (Naropin) 0.2% in NS infusio n (ARROW Pump) 0.33 mL bupivacaine PF (MARCAINE) 0.25 % injecti on 30 mL lactated ringers infusion 1,000 mL * Agents Name O2 N2O Air * Blood No blood administrations on file. Lines, Drains, and Airways Type Details Placement Removal Wound 06/23/21; Right; anterior; knee; Incision; N 06/23/21 0000 by Rg Brody, NATHAN Peripheral IV Placement Date: 09/12; Placement Time: 08; Catheter Size: 18 G; Orientation: Anterior, Right; Location: Wrist; Site Prep: Chlorhexidine; Local Anes: Injectable; Technique: Anatomical landmarks; Inserted by: Stephanie Marcial RN; Insertion Attempts: 1; Patient Tolerance: Tolerated well 06/23/21 0804 by Brooke Marcial, RN Nerve Block 06/23/21; 1037 (crealyssa davis via procedure documentation); right; 06/26/21; 1648 06/23/21 1037 by Cash Deleon LITIGATION PARALEGAL 06/26/21 1648 by Jesenia Breen CRNA documented in this encounter Social History Tobacco Use Types Packs/Day Years [...] on file documented as of this encounter OR Notes * Anesthesia Postprocedure Evaluation - Cash Deleon CRNA - 06/23/2021 11:56 AM EDT Patient: Sukhdeep Hall Procedure Summary Date: 06/23/21 [facility] / [facility] Anesthesia Start: 1011 Anesthesia Stop: Procedure: TOTAL KNEE ARTHROPLASTY RIGHT (Right Knee) Diagnosis: Surgeons: Dashawn Escobar MD Provider: Jann Freedman MD Anesthesia Type: spinal ASA Status: 3 Anesthesia Type: spinal Vitals No vitals data found for the desired time range. Post Anesthesia Care and Evaluation Patient location during evaluation: PACU Patient participation: complete - patient participated Level of consciousness: awake and alert Pain score: 0 Pain management: adequate Airway patency: patent Anesthetic complications: No anesthetic complications PONV Status: none Cardiovascular status: hemodynamically stable and acceptable Respiratory status: nonlabored ventilation, acceptable and nasal cannula Hydration status: acceptable * Anesthesia Procedure Notes - Cash Deleon CRNA - 06/23/2021 10:37 AM EDT Associated Order(s): adductor canal Adductor canal Patient reassessed immediately prior to procedure Patient location during procedure: post-op Reason for block: at surgeon's request and post-op pain management Performed by LITIGATION PARALEGAL: Derick Leroy CRNA Assisted by: Latosha Pat [...] Tolerance:comfortable throughout block Complications:no Additional Notes Procedure: The pt was placed in the Supine position. The Insertion site was prepped and Draped in sterile fashion. The pt was anesthetized with IV Sedation( see meds). Skin and cutaneous tissue was infiltrated and anesthetized with 1% Lidocaine 3 mls via a 25g needle. A BBraun 4 inch 18g echogenic needle was then inserted approximately midline, mid-thigh and advanced In-plane with Ultrasound guidance. Normal Saline PSF was utilized for hydrodissection of tissue. The Vastus medialis and Sartorius muscle where visualized and the needle tip was placed in the adductor canal, lateral to the femoral artery. LA injection spread was visualized, injection was incremental 1-5ml, injection pressure was normal or little, no intraneural injection, no vascular injection. LA dose was injected thru the needle(see dose above). A BBraun 20g wire stylet catheter was placed via the needle with ultrasound visualization and confirmation with NS fluid bolus. The catheter insertion site was sealed with exofin tissue adhesive. The labeled catheter was then coiled and secured to skin with benzoin, steristrips and CHG transparent dressing. Appropriate labels were applied. Thank you. * Anesthesia Procedure Notes - Cash Deleon CRNA - 06/23/2021 10:36 AM EDT Associated Order(s): Spinal Block Spinal Block Patient reassessed immediately prior to procedure Patient location during procedure: OR Indication:at surgeon's request Performed By JOAN: Cash Deleon CRNA Preanesthetic Checklist Completed: patient identified, IV checked, site marked, risks and benefits discussed, surgical consent, monitors and equipment checked, pre-op evaluation and timeout performed Spinal Block Prep: Patient Position:sitting Tower Hand:cap, gloves, sterile barriers and mask Prep:Chloraprep Patient Monitoring:blood pressure monitoring, continuous pulse oximetry and EKG Spinal Block Procedure Approach:midline Guidance:landmark technique and palpation technique Location:L4-L5 Needle Type:Sprotte Needle Gauge:22 G Placement of Spinal needle event:cerebrospinal fluid aspirated Paresthesia: no Fluid Appearance:clear Medications: bupivacaine (MARCAINE) 0.5 % injection, 2 mL Med Administered at 06/23/2021 10:19 AM Post Assessment Patient Tolerance:patient tolerated the procedure well with no apparent complications Complications no Additional Notes Procedure: Pt assisted to sitting position, with legs in position of comfort over side of bed. Pt. instructed in optimal spine presentation, the spine was prepped/ Draped and the skin at insertion site was anesthetized with 1% Lidocaine 2 ml. The spinal needle was then advanced until CSF flow was obtained and LA was injected: * Anesthesia Preprocedure Evaluation - Jann Freedman MD - 06/23/2021 8:34 AM EDT Images from the original note were not included. Anesthesia Evaluation Patient summary reviewed and Nursing notes reviewed NPO Solid Status: > 8 hours NPO Liquid Status: > 2 hours Airway Mallampati: I TM distance: >3 FB Neck ROM: full No difficulty expected Dental Pulmonary breath sounds clear to auscultation (+) a smoker Current, COPD, Cardiovascular ECG reviewed Rhythm: regular (+) hypertension, CAD, cardiac stents more than 12 months ago hyperlipidemia, Neuro/Psych GI/Hepatic/Renal/Endo Musculoskeletal Abdominal Substance History HEMMER LOCKSTITCH Other arthritis, history of cancer ROS/Med Hx Other: ?? Calculated EF = 54%. ?? Left ventricular systolic function is normal. ?? Left ventricular diastolic dysfunction (grade I) consistent with impaired relaxation. ?? Normal valvular structure and function Cardiac clearance 06/17/21 Anesthesia Plan ASA 3 spinal (Add canal cath) intravenous induction Anesthetic plan, all risks, benefits, and alternatives have been provided, discussed and informed consent has been obtained with: patient. Plan discussed with LITIGATION PARALEGAL. documented in this encounter Plan of Treatment Not on file documented as of this encounter Procedures Procedure Name Priority Date/Time Associated Diagnosis Comments ANESTHESIA PERIPHERAL BLOCK Routine 06/23/2021 11:56 AM EDT SPINAL Routine 06/23/2021 10:19 AM EDT documented in this encounter Results * BH AN PERIPHERAL BLOCK CATHETER (06/23/2021 11:56 AM EDT) Narrative Cash Deleon CRNA - 06/23/2021 11:56 AM EDT Cash Deleon CRNA ? 06/23/2021 11:56 AM Adductor canal Patient reassessed immediately prior to procedure Patient location during procedure: post-op Reason for block: at surgeon's request and post-op pain management Performed by LITIGATION PARALEGAL: Derick Leroy CRNA Assisted by: Latosha Pat [...] MD ANESTHESIA ORDERABLES Edited Result - Final * HC BH AN SPINAL TRAY (06/23/2021 10:19 AM EDT) Narrative Cash Deloen CRNA - 06/23/2021 10:19 AM EDT Cash Deleon CRNA ? 06/23/2021 10:37 AM Spinal Block Patient reassessed immediately prior to procedure Patient location during procedure: OR Indication:at surgeon's request Performed By JOAN: Cash Deleon CRNA Preanesthetic Checklist Completed: patient identified, IV checked, site marked, risks and benefits discussed, surgical consent, monitors and equipment checked, pre-op evaluation and timeout performed Spinal Block Prep: Patient Position:sitting Tower Hand:cap, gloves, sterile barriers and mask Prep:Chloraprep Patient Monitoring:blood pressure monitoring, continuous pulse oximetry and EKG Spinal Block Procedure Approach:midline Guidance:landmark technique and palpation technique Location:L4-L5 Needle Type:Sprotte Needle Gauge:22 G Placement of Spinal needle event:cerebrospinal fluid aspirated Paresthesia: no Fluid Appearance:clear Medications: bupivacaine (MARCAINE) 0.5 % injection, 2 mL Med Administered at 06/23/2021 10:19 AM Post Assessment Patient Tolerance:patient tolerated the procedure well with no apparent complications Complications no Additional Notes Procedure: ??Pt assisted to sitting position, with legs in position of comfort over side of bed. ??Pt. instructed in optimal spine presentation, the spine was prepped/ Draped and the skin at insertion site was anesthetized with 1% Lidocaine 2 ml. ??The spinal needle was then advanced until CSF flow was obtained and LA was injected: ? us Jann Freedman MD ANESTHESIA ORDERABLES Final R esult documented in this encounter Visit Diagnoses Not on filedocumented in this encounter Administered Medications Inactive Administered Medications - up to 3 most recent administrations Medication Order MAR Action Action Date Dose Rate Site bupivacaine (MARCAINE) 0.5 % injection Injection, Starting on Wed06/23/21 at 1019 Given 06/23/2021 10:19 AM EDT 2 mL bupivacaine (PF) (MARCAINE) 0.25 % injection Injection, Starting on Wed06/23/21 at 1156 Given 06/23/2021 11:56 AM EDT 30 mL ceFAZolin in Sodium Chloride (ANCEF) IVPB solution 3 g 3 g, Intravenous, at 200 mL/hr, Administer over 30 Minutes, Once, On Wed06/23/21 at 0950, For 1 dose, Caution: Look alike/sound alike drug alert. Refrigerate, Indications: Surgical ProphylaxisIndications:Walt gical Prophylaxis Given 06/23/2021 10:12 AM EDT 3 g dexamethasone (DECADRON) injection Intravenous, As Needed, Starting on Wed06/23/21 at 1128 Given 06/23/2021 11:28 AM EDT 8 mg lactated ringers infusion 9 mL/hr, Intravenous, Continuous, Starting on Wed06/23/21 at 0719, May switch to NS IV at KVO if renal / if indicated Currently Infusing 06/23/2021 10:12 AM EDT 9 mL/hr New Bag 06/23/2021 8:04 AM EDT 9 mL/hr 9 mL/hr lidocaine PF 1% (XYLOCAINE) injection Epidural, As Needed, Starting on Wed06/23/21 at 1016 Given 06/23/2021 10:16 AM EDT 2 mL ondansetron (ZOFRAN) injection Intravenous, As Needed, Starting on Wed06/23/21 at 1128 Given 06/23/2021 11:28 AM EDT 4 mg propofol (DIPRIVAN) infusion 10 mg/mL 100 mL Intravenous, Continuous PRN, Starting on Wed06/23/21 at 1023 Rate/Dose Change 06/23/2021 10:50 AM EDT 150 mcg/kg/min 106.92 mL/hr New Bag 06/23/2021 10:23 AM EDT 100 mcg/kg/min 71.28 mL /hr Propofol (DIPRIVAN) injection Intravenous, As Needed, Starting on Wed06/23/21 at 1016 Given 06/23/2021 10:16 AM EDT 50 mg ropivacaine (Naropin) 0.2% in NS infusion (ARROW [...] 11:55 AM EDT 10 mL/hr 10 mL/hr tranexamic acid 1000 mg in 100 ml NS Mini-bag plus 1,000 mg, Intravenous, Administer over 30 Minutes, Once, On Wed06/23/21 at 1014, For 1 dose, Give prior to incision. Break seal and mix to activate vial before using. Max. Dose for IV use - 1000mg. Given 06/23/2021 10:24 AM EDT 1,000 mg tranexamic acid 1000 mg in 100 ml NS Mini-bag plus 1,000 mg, Intravenous, Administer over 30 Minutes, Once, On Wed06/23/21 at 1014, For 1 dose, Hip Replacement: Give at start of incision closure. Knee Replacement: Give 5-10 minutes before tourniquet release. Break seal and mix to activate vial before using. Max. Dose for IV use - 1000mg. Given 06/23/2021 11:22 AM EDT 1,000 mg documented in this encounter Care Teams Submarine Worker Relationship Specialty Start Date End Date Garrett Pulido MD [address] [facility] [address] [facility] [address] [place] [id number] PCP - General Internal Medicine 03/31/18 documented as of this encounter
--- OUTSIDE RECORDS SUMMARY | 2024-07-10 08:32 | XMS_ITS | Referral Summary ---
Author Organization [facility] Address [address] [place] [address] Care Team Providers Care Herb Doctor Name Role Phone Unavailable Primary Care Provider Unavailabl e Social History Tobacco Use Types Packs/Day Years Used Date Smoking Tobacco: Never Assessed Sex and Gender Information Value Date Recorded Sex Assigned at Male 02/17/2022 9:03 PM CDT Legal Sex Male 9:03 PM CDT Gender Identity Male 02/17/2022 9:03 PM CDT Sexual Orientation Not on file Plan of Treatment Not on file
--- OUTSIDE RECORDS SUMMARY | 2024-07-10 08:32 | XMS_ITS | Clinical Summary ---
Author Organization [facility] Address [address] [place] [address] Phone Care Team Providers Care Advertising Specialist Name Role Phone Dashawn Morgan MD Primary Care Provider Allergies No known active allergies Medications No known medications Encounters Date Type Department Care Team Description 05/10/2024 9:00 PM EDT - 05/10/2024 9:[address] [facility] Emergency [address] [place] [address] Shawn Hwang MD Foreign body in skin (Primary Dx) Discharge Disposition: Home or Self Care 05/10/2024 Travel from Last 3 Months Medical History Medical History Date Comments Essential (primary) hypertension Social History Tobacco Use Types Packs/Day Years [...] on file Sexual Orientation Not on file Obstetrics History Last Filed Vital Signs Vital Sign Reading [...] 05/10/2024 8:39 PM EDT Plan of Treatment Health Maintenance Due Date Last Done Comments Wellness Exam Medicare 1966 Pneumococcal Vaccine 0-64 (1 of 2 - PCV) 1970 Hepatitis C Screening 1982 Hepatitis B Vaccine (1 of 3 - 19+ 3-dose series) 1983 Cologuard 2009 Colon Cancer Screening 2009 Colonoscopy 2009 FIT 2009 Sigmoidoscopy 2009 Virtual Colonography 2009 Zoster (1 of 2) 2014 COVID-19 Vaccine ( season) 2024 08/01/2021, 01/23/2021, 12/26/2020 Influenza Vaccine (#1) 2024 DTaP/TDaP/Td (2 - Td or Tdap) 09/03/2033 09/03/2023 Insurance [employer] MEDICARE PPO MR Care Teams Advertising Specialist Relationship Specialty Start Date End Date Dashawn Morgan MD [address] [place] [address] [place] [address] PCP - General Internal Medicine 05/10/24
--- OUTSIDE RECORDS SUMMARY | 2024-07-10 08:32 | XMS_ITS | Clinical Summary ---
Author Organization [facility] Address [address] [place] [address] Care Team Providers Care Bingo Cashier Name Role Phone Garrett Pulido MD Primary Care Provider [phone] Allergies No known active allergies Medications amLODIPine (NORVASC) 10 MG tablet Take 10 mg by mouth Daily. Active atorvastatin (LIPITOR) 40 MG tablet Take 1 tablet by mouth Daily. 90 tablet 3 8 Active lisinopril (PRINIVIL,ZESTR IL) 40 MG tablet Take 40 mg by mouth 2 (two) times a day. Active omeprazole (priLOSEC) 20 MG capsule Take 40 mg by mouth Daily. Active allopurinol (ZYLOPRIM) 300 MG tablet Take 300 mg by mouth Daily. Active carvedilol (COREG) 25 MG tablet Take 25 mg by mouth 2 (Two) Times a Day With Meals. Active hydroCHLOROthia zide (HYDRODIURIL) 25 MG tablet Take 25 mg by mouth Daily. Active meloxicam (MOBIC) 15 MG tablet Take 15 mg by mouth Daily As Needed for Mild Pain . Active potassium chloride 10 MEQ CR tablet Take 20 mEq by mouth Daily. Active clopidogrel (PLAVIX) 75 MG tablet Take 1 tablet by mouth Daily. 30 tablet 1 Active Ropivacine HCl-NaCl (NAROPIN)Indica tions:Acute Pain 20 mg/hr by Peripheral Nerve route Continuous. Indications: Acute Pain 1 Active oxyCODONE (Roxicodone) 5 MG immediate release tabletIndicatio ns:S/P total knee arthroplasty, right Take 1 tablet by mouth Every 4 (Four) Hours As Needed for Moderate Pain . 40 tablet 06/23/2021 3:20 PM EDT 1 Active aspirin 81 MG EC tablet Take 1 tablet by mouth Daily. Take 4 aspirin tablets tomorrow , then 1 daily till finished. 34 tablet 06/23/2021 3:20 PM EDT 1 Active Active Problems Problem Noted Date Diagnosed Date Arthritis of right knee 06/23/2021 S/P total knee arthroplasty, right 06/23/2021 HTN (hypertension) 06/23/2021 CAD (coronary artery disease), hx of stent 2018 06/23/2021 Tobacco abuse 06/23/2021 STEMI involving right coronary artery 03/31/2018 Family History Medical History Relation Name Comments Heart disease Brother Heart disease Father Heart disease Mother Relation Name Status Comments Brother Father Mother Social History Tobacco Use Types Packs/Day Years Used Date Smoking Tobacco: Every Day Cigarettes Smokeless Tobacco: Never Alcohol Use Standard Drinks/Week Comments No 0 (1 standard drink = 0.6 oz pur e alcohol) Abuse Screen Answer Date Recorded Unsafe at Home or Work/School Not on file Feels Threatened by Someone? Not on file 07/2023 Does Anyone Keep You from Co ntacting Others or Doint Things Outside the Home? Not on file 06/03/2023 Physical Sign of Abuse Present Not on file 1 Housing Stability Answer Date Recorded Current Living Arrangements Not on file 05/23 Potentially Unsafe Housing Conditions Not on radha e 06/03/2023 Family and Community Support Answer Julian e Recorded Help with Day-to-Day Activities Not on file 06/03/2023 Lonely or Isolated Not on file 06/03/2023 Employment Answer Date Recorded Do you want help finding or keeping work or a gisella b? Not on file 06/03/2023 Disabilities Answer Date Recorded Concentrating, Remembering, or Making Decisions Difficulty Not on file 06/03/2023 Doing Errands Independently Difficulty Not on fi le 06/03/2023 Education Answer Date Recorded Help with school or training? Not on file Preferred Language Not on file 06/03/2023 Sex and Gender Information Value Date Recorded Sex Assigned at Not on file Legal Sex Male 8:09 AM EDT Gender Identity Not on file Sexual Orientation Not on file Last Filed Vital Signs Vital Sign Reading Time Taken Comments Blood Pressure 141/98 06/23/2021 1:12 PM EDT Pulse 72 06/23/2021 1:12 PM EDT Temperature 36.4 ??C (97.6 ??F) 06/23/2021 1:12 PM ED T Respiratory Rate 18 06/23/2021 1:12 PM EDT Oxygen Saturation 97% 06/23/2021 1:12 PM EDT Inhaled Oxygen Concentration - - Weight 119 kg (262 lb) 06/23/2021 8:00 AM EDT Height 182.9 cm (6') 06/23/2021 8:00 AM EDT Body Mass Index 35.53 06/23/2021 8:00 AM EDT Plan of Treatment Health Maintenance Due Date Last Done Comments COLOGUARD 1965 COLON CANCER SCREENING 5 YEAR SIGMOIDOSCOPY 1965 COLONOSCOPY 1964 [address]AL CANCER SCREENING 1964 CT COLONOGRAPHY 1964 FECAL OCCULT BLOOD TEST 1964 FIT Testing (1 year) 1964 Pneumococcal Vaccine 0-64 (1 of 2 - PCV) 1970 TDAP/TD VACCINES (1 - Tdap) 1983 ZOSTER VACCINE (1 of 2) 2014 ANNUAL PHYSICAL 04/02/2018 HEPATITIS C SCREENING 04/02/2018 LIPID PANEL 04/01/2019 04/01/2018 INFLUENZA VACCINE 03/23/2024 COVID-19 Vaccine ( season) 2024 Medical Devices Implanted Type Area Setter Helper Device Identifier Shelf Expiration Date Model / Serial / Lot [facility] Palacos R Hi/Visc 1x40 - [id number] Implanted:Qty : 1 on 06/23/2021 by Dashawn Escobar MD at [facility] Implant Right: Knee [employer] [id number] 10/20/2022 [id number] / / [id number] Cmt Bone Palacos R Hi/Visc 1x40 - [id number] Implanted:Qty : 1 on 06/23/2021 by Dashawn Escobar MD at [facility] Implant Right: Knee [employer] [id number] 10/20/2022 [id number] / / [id number] Dev Contrl Tiss Stratafix Symm Pds Plus Juli[address]esar Ct-1 45cm - [id number] Implanted:Qty : 1 on 06/23/2021 by Dashawn Escobar MD at [facility] Implant Right: Knee [employer] J AND J [id number] / / Comp Fem Legion Oxinium Cr Sz7 Rt - [id number] Implanted:Qty : 1 on 06/23/2021 by Dashawn Escobar MD at [facility] Implant Right: Knee [employer] [id number] 03/23/2031 [id number] / / [id number] Base Tib/Kn Gen2 Nonpor Ti Sz6 Rt - [id number] Implanted:Qty : 1 on 06/23/2021 by Dashawn Escobar MD at [facility] Implant Right: Knee [employer] [id number] 02/23/2031 [id number] / / [id number] Pat Gen2 Resrf 35mm - [id number] Implanted:Qty : 1 on 06/23/2021 by Dashawn Escobar MD at [facility] Implant Right: Knee [employer] [id number] 03/02/2031 [id number] / / [id number] Insrt Art Legion Cr Hf Xlpe Sz5to6 9mm - [id number] Implanted:Qty : 1 on 06/23/2021 by Dashawn Escobar MD at [facility] Implant Right: Knee [employer] [id number] 04/01/2031 [id number] / / [id number] Totl Kn Lonny Marcial Nephew - [id number] Implanted:Qty : 1 on 06/23/2021 by Dashawn Escobar MD at [facility] Implant Right: Knee [employer]W CAPKNEETOTAL SN2 / / Stent Xience Shruthi Everolimus Cecilio 4x15mm - [id number] - [id number] Implanted:Qty : 1 on 03/31/2018 by Harrison Jett MD at [facility] 12/29/2018 [id number] / [id number] / [id number] Procedures Procedure Name Priority Date/Time Associated Diagnosis Comments LIPID PANEL Routine 04/01/2018 3:55 AM EDT from Last 3 Months or Most Recently Relevant to Health Maintenance Results * (ABNORMAL) Lipid Panel (04/01/2018 3:55 AM EDT) Total Cholesterol 214(H) 0 - 200 mg/dL 04/01/2018 5:29 AM EDT [facility] Triglycerides 259(H) 0 - 150 mg/dL 04/01/2018 5:29 AM EDT [facility] HDL Cholesterol 28(L) 40 - 60 mg/dL 04/01/2018 5:29 AM [facility] LDL Cholesterol 134(H) 0 - 100 mg/dL 04/01/2018 5:29 AM T [facility] VLDL Cholesterol 51.8(H) 5 - 40 mg/dL 04/01/2018 5:29 AM [facility] LDL/HDL Ratio 4.79 04/01/2018 5:29 AM [facility] Blood Line / Unknown 04/01/2018 3: 55 AM EDT 04/01/2018 4:53 AM EDT Narrative [facility] - 04/01/2018 5:29 AM EDT Cholesterol Reference Ranges (U.S. Department of Health and Human Services ATP III Classifications) Desirable ?<200 mg/dL Borderline High ?200-239 mg/dL High Risk ?>240 mg/dL Triglyceride Reference Ranges (U.S. Department of Health and Human Services ATP III Classifications) Normal ? <150 mg/dL Borderline High ??150-199 mg/dL High ? 200-499 mg/dL Very High ?>500 mg/dL HDL Reference Ranges (U.S. Department of Health and Human Services ATP III Classifcations) Low ? <40 mg/dl (major risk factor for CHD) High ?>60 mg/dl ('negative' risk factor for CHD) LDL Reference Ranges (U.S. Department of Health and Human Services ATP III Classifcations) Optimal ?<100 mg/dL Near Optimal ? 100-129 mg/dL Borderline High ??130-159 mg/dL High ? 160-189 mg/dL Very High ?>189 mg/dL us Harrison Jett MD LAB BLOOD ORDERABLES Final Res ult [facility]
[address] [place] [address], from Last 3 Months or Most Recently Relevant to Health Maintenance Insurance [facility] Advance Directives * CPR (Attempt to Resuscitate) (Latest Code Status on File) Date Activated Date Inactivated Comments 03/31/2018 9:05 AM 04/01/2018 1:46 PM Question Answer Comments Code Status (Patient has no pulse and is not breathing): CPR (Attempt to Resuscitate) Medical Interventions (Patie nt has pulse or is breathing): Full Level Of Support Discussed With: Patient Care Teams Bingo Cashier Relationship Specialty Start Date End Date Garrett Pulido MD [address] [facility] [address] [place] [address] PCP - General Internal Medicine 03/31/18
--- OUTSIDE RECORDS SUMMARY | 2024-07-10 08:32 | XMS_ITS | Encounter Summary ---
Author Organization [place] [address] Care Team Providers Care Supervisor Home Energy Consultant Name Role Phone Dashawn Morgan MD Primary Care Provider Reason for Visit * Reason Comments Foreign Body in Skin Fishing hook buried into palm, between index and middle fingers on left hand. Pain with movement Encounter Details Date Type Department Care Team (Late st Contact Info) Description 05/10/2024 9:00 PM EDT - 05/10/2024 9:43 PM EDT Emergency [facility] [address] [place] [address] Shawn Hwang MD [address] [place] [address] [place] [id number] Foreign body in skin (Primary Dx) Discharge Disposition: Home or Self Care Social History Tobacco Use Types Packs/Day Years [...] Mass Index 35.26 05/10/2024 8:39 PM EDT documented in this encounter Discharge Instructions * Discharge Instructions* Shawn Hwang MD - 05/10/2024 9:31 PM EDT Follow-up with primary care physician. Return if worsening symptoms or any other concerns. documented in this encounter Discharge Disposition Disposition Code Departure Means Destination Comment s Home or Self Correction documented in this encounter ED Notes * Shawn Hwang MD - 05/10/2024 9:06 PM EDT CHIEF COMPLAINT Chief Complaint Patient presents with Foreign Body in Skin Fishing hook buried into palm, between index and middle fingers on left hand. Pain with movement HPI Sukhdeep Hall is a 58 y.o. male who presents via private vehicle with a foreign body in skin. I reviewed the patient's external medical records which revealed a history of HTN. His tetanus was updated 08/2023. The patient explains that he threw the anchor over the boat [place] a dock [place] 8 PM. The anchor caught the fishing line, then whipped the hook into his left palm. Patient denies any fever, cough, SOB, anorexia, nausea, vomiting, numbness, weakness, tingling, change in vision, diplopia or any other symptoms. REVIEW OF SYSTEMS See HPI for further details. Remainder of Review of systems is otherwise negative. PAST MEDICAL HISTORY Past Medical History: Diagnosis Date Essential (primary) hypertension FAMILY HISTORY No family history on file. SOCIAL HISTORY Social History Socioeconomic History Marital status: Spouse name: None Number of children: None Years of education: None Highest education level: None Tobacco Use Smoking status: Every Day Current packs/day: 2.00 Types: Cigarettes Smokeless tobacco: Never Vaping Use Vaping status: Never Used Substance and Sexual Activity Alcohol use: Not Currently Drug use: Not Currently Types: Marijuana Social Determinants of Health Received from [facility] Family and Community Support Received from [facility] Abuse Screen Received from [facility] Housing Stability SURGICAL HISTORY History reviewed. No pertinent surgical history. CURRENT MEDICATIONS No current facility-administered medications for this encounter. No current outpatient medications on file. ALLERGIES No Known Allergies PHYSICAL EXAM ED Triage Vitals Temp 05/10/242038 98.6 ??F (37 ??C) Pulse 05/10/242037 90 Resp 05/10/242037 18 BP 05/10/242038 138/90 SpO2 05/10/242037 97 % Height 05/10/242038 6' (1.829 m) Weight 05/10/242038 260 lb (117.9 kg) refer to nursing notes for most recent vital signs Constitutional: Awake, Alert & oriented x 3, oriented to person place and time. HENT: Normocephalic, Atraumatic, Bilateral external ears normal, Nose normal. Eyes: Conjunctiva normal no discharge. Neck: Normal range of motion, Supple, No stridor. Cardiovascular: Normal heart rate, Normal rhythm. Thorax & Lungs: Normal breath sounds, No respiratory distress, No chest tenderness. Abdomen: Soft, nontender, nondistended, no rebound or guarding Skin: Warm, Dry. Back: No tenderness. Extremities: No edema, Fish hook in the volar aspect of his left hand just distal to his third digit. Neurologic: No focal deficits Psych- euthymic LABS/RADIOLOGY/PROCEDURES No orders to display No orders to display Labs Reviewed - No data to display Foreign Body Removal Procedure Note Indication: Foreign body under the skin Timeout performed per policy and procedure. Procedure: The area of the foreign body was unable to be prepped due to the emergent nature of the procedure. Local anesthesia over the foreign body site was obtained by infiltration using 1% Lidocaine with epinephrine. The foreign body was then removed using forceps and had the appearance of metal. After the procedure the area was dressed with a sterile dressing. The patient's tetanus status wasup to date and did not require a booster dose. The patient tolerated the procedure well. Complications: None COURSE & MEDICAL DECISION MAKING Pertinent Labs & Imaging studies reviewed. (See chart for details) Patient was seen in the emergency department and evaluated for the chief complaint as described in history of present illness. Complete history and physical were performed. Patient's presenting symptoms, physical exam, and diagnostic evaluation are consistent with foreign body in hand. Foreign bodywas removed. Tetanus is up-to-date. FINAL IMPRESSION 1. Foreign body in skin Francisco Javier Gordillo Scribe, cherie scribing for and in the presence of Shawn Welch MD This chart was completed using voice recognition technology and may contain unintended errors Note has been documented by Francisco Javier Lazo on 05/10/2024 Shawn Gordillo MD, personally performed the services described in this documentation, as scribed by Francisco Javier Lazo in my presence and it is accurate and complete. Shawn Hwang MD 05/10/242131 documented in this encounter Plan of Treatment Not on file documented as of this encounter Visit Diagnoses Diagnosis Foreign body in skin- Primary Other, multiple, and unspecified sites, superficial foreign body (splinter), without major open wound and without mention of infection documented in this encounter Care Teams Supervisor Home Energy Consultant Relationship Specialty Start Date End Date Dashawn Morgan MD [address] [facility] [place] [address] PCP - General Internal Medicine 05/10/24 documented as of this encounter
--- OUTSIDE RECORDS SUMMARY | 2024-07-10 08:32 | XMS_ITS | Encounter Summary ---
Author Organization [employer] [facility] Address [address] [place] [address] Care Team Providers Care Obstetric Assistant Name Role Phone Unavailable Primary Care Provider Unavailabl e Encounter Details Date Type Department Care Team (Late st Contact Info) Description 02/03/2022 Transcribed Document [facility] Family Medicine [place] [address] ProviderHector MD [address] [place] [id number] Social History Tobacco Use Types Packs/Day Years Used Date Smoking Tobacco: Never Assessed Sex and Gender Information Value Date Recorded Sex Assigned at Male 02/17/2022 9:03 PM CDT Legal Sex Male 9:03 PM CDT Gender Identity Male 02/17/2022 9:03 PM CDT Sexual Orientation Not on file documented as of this encounter Miscellaneous Notes * Cerner Conversion Note - Hector Carranza MD - 02/03/2022 10:26 AM CDT DATE OF SERVICE: 02/03/2022 SLEEP MEDICINE FOLLOWUP VISIT PRIMARY PROVIDER: Dr. Kathryn Shanks. HISTORY OF PRESENT ILLNESS: The patient returns for followup today regarding his recent polysomnogram. He had an in-house study due to his history of congestive heart failure. This study showed severe obstructive sleep apnea with an AHI of 80. He refused CPAP titration and said that he could not wear CPAP. He returns to the office today to discuss this and see if there is any way that we can get him treated. He had O2 sats below 88% for 22 minutes and an AHI of 80.4. We discussed the various treatment options including an oral appliance, weight loss, and CPAP. I have explained to him that severe sleep apnea will worsen his heart failure and increase his risk of stroke, heart attack, and premature . He has reluctantly agreed to a trial with positive airway pressure therapy part. MEDICATIONS: A number of medications have been changed and his med list is reviewed. He is now on nifedipine and Edarbi. SOCIAL HISTORY: He continues to smoke 2 packs of cigarettes a day. He does not drink alcohol. PHYSICAL EXAMINATION: VITAL SIGNS: He weighs 265, BMI is 36. Respirations 20, O2 sats 98%, blood pressure 138/95, pulse is 90. GENERAL: He appears in no acute distress. LUNGS: Clear to auscultation. HEART: Without murmurs. IMPRESSION: 1. Severe obstructive sleep apnea. 2. Hypertension. 3. Congestive heart failure. 4. Obesity. RECOMMENDATION: Trial with positive airway pressure therapy. Follow up in 31-90 days after initiating therapy. /[id number] Lucille MD ZAIDA Vazquez/AQ / ZAIDA / MODL /[id number] CC: Kathryn Shanks MD Electronically signed by Mike [facility] Conversion Directional Bore Operator Cerner at 12/07/2022 6:23 PM CDT documented in this encounter Plan of Treatment Not on file documented as of this encounter Visit Diagnoses Not on filedocumented in this encounter
--- OUTSIDE RECORDS SUMMARY | 2024-07-10 08:32 | XMS_ITS | Clinical Summary ---
Author Organization [employer] [facility] Address [address] [place] [address] Care Team Providers Care Interactive Media Project Manager Name Role Phone Unavailable Primary Care Provider [...]
--- OUTSIDE RECORDS SUMMARY | 2024-07-10 08:33 | XMS_ITS | Encounter Summary ---
[facility] Address [address] [place] [address] Care Team Providers Care Physician Industrial Name Role Phone Garrett Montenegro MD Primary Care Provider [phone] Reason for Visit * Auth/Cert Specialty Diagnoses / Procedures Referred By Contac t Referred To Contact Diagnoses STEMI involving right coronary artery STEMI Procedures Left Heart Cath Referral ID Status Reason Start Date Expiration Date Visits Re quested Visits Authorized [id number] 1 1 Encounter Details Date Type Department Care Team (Latest Contact Info) Description 03/31/2018 8:13 AM EDT - 04/01/2018 11:41 AM EDT Hospital Encounter [facility] [address] [place] [address] Harrison Jett MD [address] [facility] [address] [place], [place] [id number] Discharge Disposition: Home or Self Care Social [...] Sign Reading Time Taken Comments Blood Pressure 138/96 04/01/2018 8:47 AM EDT Pulse 76 04/01/2018 11:27 AM EDT Temperature 36.7 ??C (98 ??F) 04/01/2018 7:00 AM EDT Respiratory Rate 16 04/01/2018 11:00 AM EDT Oxygen Saturation 95% 04/01/2018 11:00 AM EDT Inhaled Oxygen Concentration - - Weight 116 kg (255 lb 11.7 oz) 03/31/2018 9:15 A M EDT Height 182.9 cm (6') 03/31/2018 9:15 AM EDT Body Mass Index 34.68 03/31/2018 9:15 AM EDT documented in this encounter Discharge Summaries * Harrison Jett MD - 04/01/2018 8:45 AM EDT Sukhdeep Hall [id number] Date of Admit: 03/31/2018 Date of Discharge: 04/01/2018 Discharge Diagnosis: Active Hospital Problems Diagnosis Date Noted ??? STEMI involving right coronary artery ([facility]) [I21.11] 03/31/2018 Resolved Hospital Problems Diagnosis Date Noted Date Resolved No resolved problems to display. Hospital Course: This is a gentleman who traveled to [place] for work, got sick during a meetingwith chest discomfort. Was diagnosed with an acute inferior STEMI. Actually by the time he arrived to the hospital, his ST elevation had resolved, although he still had ongoing symptoms. We took him directly to the crown and bridge dental lab technician and he had a 90% mid RCA lesion that was successfully treated with drug-eluting stenting. No significant disease in his other coronaries. He has normal LV systolic function and his ECG is normal on the day after his intervention. I really think this is technically an inferior STEMI but really a very hot, unstable angina from a prognosis standpoint. I think he is an excellen t candidate for an early discharge. We are going to start him on a statin and continue him on dual antiplatelet therapy for a year. He is already on an BENSON inhibitor. I am not putting him on a beta marty due to relative low blood pressures right now. I would like him to follow up with a local bulldozer mechanic in about 10 days. I told him to stay off work for about 10 days and no driving for 10 days. Procedures Performed Procedure(s): Left Heart Cath Left ventriculography Coronary angiography Percutaneous Coronary Intervention Stent FLOR coronary Consults No orders found for last 30 day(s). Discharge Medications Your medication list START taking these medications Instructions Last Dose Given Next Dose Due aspirin 81 MG chewable tablet Chew 1 tablet Daily. atorvastatin 40 MG tablet Commonly known as: LIPITOR Take 1 tablet by mouth Daily. prasugrel 10 MG tablet Commonly known as: EFFIENT Take 1 tablet by mouth Daily. CONTINUE taking these medications Instructions Last Dose Given Next Dose Due amLODIPine 10 MG tablet Commonly known as: NORVASC Take 10 mg by mouth Daily. lisinopril-hydrochlorothiazide 10-12.5 MG per tablet Commonly known as: PRINZIDE,ZESTORETIC Take 1 tablet by mouth Daily. Where to Get Your Medications You can get these medications from any pharmacy Bring a paper prescription for each of these medications ?? atorvastatin 40 MG tablet ?? prasugrel 10 MG tablet Information about where to get these medications is not yet available Ask your nurse or doctor about these medications ?? aspirin 81 MG chewable tablet Discharge Diet: Activity at Discharge: Discharge disposition: home Condition on Discharge: stable Follow-up Appointments No future appointments. Additional Instructions for the Follow-ups that You Need to Schedule Discharge Follow-up with Specified Provider: Needs to get involved with a bulldozer mechanic locally within the next 10 days, no driving for at least 10 days should arrange for rehabilitation locally As directed To: Needs to get involved with a bulldozer mechanic locally within the next 10 days, no driving for at least 10 days should arrange for rehabilitation locally Test Results Pending at Discharge Harrison Jett MD 04/01/18 8:45 AM documented in this encounter Discharge Instructions * Discharge Instr - Activity* Sera Quinones RN - 04/01/2018 8:54 AM EDT Gradually resume activity. No driving for at least 10 days * Discharge Instr - Diet* Sera Quinones RN - 04/01/2018 8:59 AM EDT Healthy heart diet * Appointments* Sera Quinones RN - 04/01/2018 8:55 AM EDT Follow up with bulldozer mechanic locally within 10 days Arrange for cardiac rehabilitation locally YOU HAVE AN APPOINTMENT WITH DR. GARRETT MONTENEGRO, [address] [place] [address], [address], [place] April 06 at 10:40 AM. If you need to reschedule this appointment call [phone]. * Attachments The following attachments cannot be sent through Care Everywhere. * Aspirin capsules or tablets extended release (Indonesian) * Atorvastatin tablets (Indonesian) * Prasugrel oral tablets (Indonesian) * Heart Attack (Indonesian) * Exercise Guidelines During Cardiac Rehabilitation (Indonesian) * Carotid Angioplasty With Stent Care After (Indonesian) * Carotid Angioplasty With Stent (Indonesian) * Heart-Healthy Eating Plan (Indonesian) * Steps to Quit Smoking (Indonesian) * Coping with Quitting Smoking (Indonesian) * [facility] STEPS TO QUIT SMOKING documented in this encounter Medications at Time of Discharge amLODIPine (NORVASC) 10 MG tablet Take 10 mg by mouth Daily. atorvastatin (LIPITOR) 40 MG tablet Take 1 tablet by mouth Daily. 90 tablet 3 04/01/2018 aspirin 81 MG chewable tablet Chew 1 tablet Daily. 04/01/2018 06/13/2021 lisinopril-hydroc hlorothiazide (PRINZIDE,ZESTORE TIC) 10-12.5 MG per tablet Take 1 tablet by mouth Daily. 06/13/2021 prasugrel (EFFIENT) 10 MG tablet Take 1 tablet by mouth Daily. 90 tablet 3 04/01/2018 06/13/2021 documented as of this encounter Progress Notes * Anna Billings RN - 04/01/2018 11:41 AM EDT Continued Stay Note [facility] Patient Name: Sukhdeep Hall Today's Date: 04/04/2018 Admit Date: 03/31/2018 Discharge Plan Row Name 04/04/18 1326 Plan Final Discharge Disposition Code 01 - home or self-care Discharge Codes No documentation. Expected Discharge Date and Time Expected Discharge Date Expected Discharge Time Apr 01, 2018 Anna Billings RN * Anna Billings RN - 04/01/2018 10:45 AM EDT Continued Stay Note [facility] Patient Name: Sukhdeep Hall Today's Date: 04/01/2018 Admit Date: 03/31/2018 Discharge Plan Row Name 04/01/18 1044 Plan Plan Comments CCP called pt's pharmacy. They are filling pt's prescriptions now and they will be ready for pickup. Row Name 04/01/18 0940 Plan Plan Comments Pt is being discharged home today. CCP placed a call to pt's chosen pharmacy to checkmedication coverage. The Effient, generic form, will be covered at a zero copay. His Lipitor will also be covered. They have not yet received the prescriptions. Spoke with pt's RN who states that shefielmon follow up with the bulldozer mechanic to get written prescriptions for pt to take to his pharmacy. Pt has no other identified dc needs. Discharge Codes No documentation. Expected Discharge Date and Time Expected Discharge Date Expected Discharge Time Apr 01, 2018 Anna Billings RN * Anna Billings RN - 04/01/2018 9:42 AM EDT Continued Stay Note [facility] Patient Name: Sukhdeep Hall Today's Date: 04/01/2018 Admit Date: 03/31/2018 Discharge Plan Row Name 04/01/18 0940 Plan Plan Comments Pt is being discharged home today. CCP placed a call to pt's chosen pharmacy to checkmedication coverage. The Effient, generic form, will be covered at a zero copay. His Lipitor will also be covered. They have not yet received the prescriptions. Spoke with pt's RN who states that shefilemon follow up with the bulldozer mechanic to get written prescriptions for pt to take to his pharmacy. Pt has no other identified dc needs. Discharge Codes No documentation. Expected Discharge Date and Time Expected Discharge Date Expected Discharge Time Apr 01, 2018 Anna Billings RN documented in this encounter H&P Notes * Harrison Jett MD - 03/31/2018 9:05 AM EDT Date of Hospital Visit: 03/31/18 Encounter Provider: Harrison Jett MD Place of Service: [facility] Patient Name: Sukhdeep Hall :[id number] Chief complaint: Chest pain History of Present Illness:He is a 52-year-old gentleman. About 30 minutes prior to arrival had onset of severe substernal chest pain, shortness of breath, diaphoresis. He has never had heart problems before; 911 was called and he is having an inferior STEMI. He has no history of lung or kidney problems. No history of bleeding. He is not allergic to anything. No history of stroke. He smokes cigarettes and an occasional marijuana joint. No cocaine use. Not much in the way of alcohol use. No past medical history on file. No past surgical history on file. No prescriptions prior to admission. Current Meds No current facility-administered medications on file prior to encounter. No current outpatient prescriptions on file prior to encounter. Social History Social History ??? Marital status: N/A Spouse name: N/A ??? Number of children: N/A ??? Years of education: N/A Occupational History ??? Not on file. Social History Main Topics ??? Smoking status: Not on file ??? Smokeless tobacco: Not on file ??? Alcohol use Not on file ??? Drug use: Unknown ??? Sexual activity: Not on file Other Topics Concern ??? Not on file Social History Narrative ??? No narrative on file Family Hx: Non-contributory REVIEW OF SYSTEMS: ROS was performed and is negative except as outlined in HPI REVIEW OF SYSTEMS: CONSTITUTIONAL: No weight loss, fever, chills, weakness or fatigue. HEENT: Eyes: No visual loss, blurred vision, double vision or yellow sclerae. Ears, Nose, Throat: No hearing loss, sneezing, congestion, runny nose or sore throat. SKIN: No rash or itching. RESPIRATORY: No shortness of breath, hemoptysis, cough or sputum. GASTROINTESTINAL: No anorexia, nausea, vomiting or diarrhea. No abdominal pain, bright red blood per rectum or melena. NEUROLOGICAL: No headache, dizziness, syncope, paralysis, numbness or tingling in the extremities. MUSCULOSKELETAL: No muscle, back pain, joint pain or stiffness. HEMATOLOGIC: No anemia, bleeding or bruising. LYMPHATICS: No enlarged nodes. PSYCHIATRIC: No history of depression, anxiety, hallucinations. ENDOCRINOLOGIC: No reports of sweating, cold or heat intolerance. No polyuria or polydipsia. Objective: Vitals: 03/31/18 0830 03/31/18 0835 03/31/18 0839 03/31/18 0844 Resp: There is no height or weight on file to calculate BMI. General Appearance: Alert, oriented x 3, in no acute distress Head: Normocephalic, without obvious abnormality, atraumatic Ears: Ears appear intact with no abnormalities noted Throat: No oral lesions, dentition good Neck: No adenopathy, supple, trachea midline, no thyromegaly, no carotid bruit, no JVD Lungs: Breath sounds are equal and clear to auscultation Heart: Normal S1 and S2, RRR, no murmur/gallop or rub Abdomen: Normal bowel sounds, obese, soft non-tender, non-distended, no organomegaly, no guarding Extremities: Moves all extremities well, no edema, no cyanosis, no redness Pulses: Pulses palpable and equal bilaterally. Normal radial pulses Skin: No bleeding, bruising or rash Lymph nodes: No palpable adenopathy I personally viewed and interpreted the patient's EKG/Telemetry data Assessment: Active Hospital Problems Diagnosis Date Noted ??? STEMI involving right coronary artery ([facility]) [I21.11] 03/31/2018 Resolved Hospital Problems Diagnosis Date Noted Date Resolved No resolved problems to display. Plan:Inferior STEMI. We are taking him directly to the crown and bridge dental lab technician. I picked him up in the ambulance bay and walked him right up here. Further decisions will be based on the findings at the time of cath. Likely, his right coronary artery is going to be a problem and need some intervention on it. Obviously, smoking cessation is going to be critical for this rafy. He has a lot of room for risk modification. documented in this encounter Consult Notes * Noreen Pablo RN - 04/01/2018 10:04 AM EDTAssociated Order(s): CARDIAC REHAB EVALUATION AND ENROLLMENT; CARDIAC REHAB EVALUATION AND ENROLLMENT Met with patient, discussed benefits of cardiac rehab. Provided phase II information packet, which includes; general information about cardiac rehab, [facility] Cardiac Rehab Programs handout and [facility] letter article entitled ???Cardiac Rehab is often the Best Medicine for Recovery , stresses the importance of cardiac rehab after a heart event. I provided the contact information for cardiac rehab where he lives, in [place]. Verbalized understanding, stated did not think he would attend due to his schedule. documented in this encounter Nursing Notes * Mayra Herron RN - 04/01/2018 11:00 AM EDT Problem: Patient Care Overview Goal: Plan of Care Review Outcome: Outcome(s) achieved Date Met: 04/01/18 04/01/18 1059 Coping/Psychosocial Plan of Care Reviewed With patient Plan of Care Review Progress improving OTHER Outcome Summary Discharge to home Goal: Individualization and Mutuality Outcome: Outcome(s) achieved Date Met: 04/01/18 Problem: Pain, Acute (Adult) Goal: Acceptable Pain Control/Comfort Level Outcome: Outcome(s) achieved Date Met: 04/01/18 Problem: Fall Risk (Adult) Goal: Absence of Fall Outcome: Outcome(s) achieved Date Met: 04/01/18 Problem: Cardiac: ACS (Acute Coronary Syndrome) (Adult) Goal: Signs and Symptoms of Listed Potential Problems Will be Absent, Minimized or Managed (Cardiac: ACS) Outcome: Outcome(s) achieved Date Met: 04/01/18 Problem: Skin Injury Risk (Adult) Goal: Skin Health and Integrity Outcome: Outcome(s) achieved Date Met: 04/01/18 * Sherrie Hussein, NATHAN - 04/01/2018 7:07 AM EDT Problem: Patient Care Overview Goal: Plan of Care Review 04/01/18 0705 Coping/Psychosocial Plan of Care Reviewed With patient Plan of Care Review Progress improving OTHER Outcome Summary Pt had no complaints of chest pain throughout the night. K+ 3.3 this AM. VSS, continue to monitor. Problem: Pain, Acute (Adult) Goal: Acceptable Pain Control/Comfort Level Outcome: Ongoing (interventions implemented as appropriate) Problem: Skin Injury Risk (Adult) Goal: Skin Health and Integrity Outcome: Ongoing (interventions implemented as appropriate) * Noelle Eastman RN - 03/31/2018 4:19 PM EDT Problem: Patient Care Overview Goal: Plan of Care Review Outcome: Ongoing (interventions implemented as appropriate) 03/31/18 1614 Coping/Psychosocial Plan of Care Reviewed With patient;mother Plan of Care Review Progress improving OTHER Outcome Summary Patint is s/p PTCA/stent of RCA. Awake, alert and oiented. B/P slightly elevated. Still with complaint of chest/shoulder discomfort. PRN meds given with pain relief. Patient/ family updated on plan of care. Will continue to monitor closely. Problem: Pain, Acute (Adult) Goal: Identify Related Risk Factors and Signs and Symptoms Outcome: Outcome(s) achieved Date Met: 03/31/18 Goal: Acceptable Pain Control/Comfort Level Outcome: Ongoing (interventions implemented as appropriate) Problem: Fall Risk (Adult) Goal: Identify Related Risk Factors and Signs and Symptoms Outcome: Outcome(s) achieved Date Met: 03/31/18 Goal: Absence of Fall Outcome: Ongoing (interventions implemented as appropriate) Problem: Cardiac: ACS (Acute Coronary Syndrome) (Adult) Goal: Signs and Symptoms of Listed Potential Problems Will be Absent, Minimized or Managed (Cardiac: ACS) Outcome: Ongoing (interventions implemented as appropriate) Problem: Skin Injury Risk (Adult) Goal: Identify Related Risk Factors and Signs and Symptoms Outcome: Outcome(s) achieved Date Met: 03/31/18 Goal: Skin Health and Integrity Outcome: Ongoing (interventions implemented as appropriate) documented in this encounter Plan of Treatment Not on file documented as of this encounter Procedures Procedure Name Priority Date/Time Associated Diagnosis Comments ECG 12-LEAD Routine 04/01/2018 7:21 AM EDT TROPONIN Routine 04/01/2018 3:55 AM EDT CBC (NO DIFF) Routine 04/01/2018 3:55 AM EDT HEMOGLOBIN A1C Routine 04/01/2018 3:55 AM EDT LIPID PANEL Routine 04/01/2018 3:55 AM EDT BASIC METABOLIC PANEL Routine 04/01/2018 3:55 AM EDT POCT GLUCOSE FINGERSTICK Routine 03/31/2018 5:53 PM EDT POCT GLUCOSE FINGERSTICK Routine 03/31/2018 4:03 PM EDT ECHO COMPLETE W/ DOPPLER AND COLOR FLOW Routine 03/31/2018 3:06 PM EDT POCT GLUCOSE FINGERSTICK Routine 03/31/2018 11:25 AM EDT ECG 12-LEAD STAT 03/31/2018 10:24 AM EDT POCT GLUCOSE FINGERSTICK Routine 03/31/2018 9:05 AM EDT POCT ACTIVATED CLOTTING TIME Routine 03/31/2018 8:42 AM EDT CARDIAC CATHETERIZATION Routine 03/31/20 18 8:41 AM EDT CARDIAC CATHETERIZATION Routine 03/31/20 18 8:41 AM EDT CARDIAC CATHETERIZATION Routine 03/31/20 18 8:41 AM EDT CARDIAC CATHETERIZATION Routine 03/31/20 18 8:41 AM EDT CARDIAC CATHETERIZATION Routine 03/31/20 18 8:41 AM EDT POCT ACTIVATED CLOTTING TIME Routine 03/31/2018 8:30 AM EDT CBC WITH AUTO DIFFERENTIAL STAT 03/31/2018 8:25 AM EDT TROPONIN STAT 03/31/2018 8:25 AM EDT APTT STAT 03/31/2018 8:25 AM EDT PROTIME-INR STAT 03/31/2018 8:25 AM EDT CBC AND DIFFERENTIAL STAT 03/31/2018 8:25 AM EDT COMPREHENSIVE METABOLIC PANEL STAT 03/31/2018 8:25 AM EDT SCANNED - TELEMETRY 03/31/2018 documented in this encounter Results * ECG 12 Lead (04/01/2018 7:21 AM EDT) 04/01/2018 7:21 AM EDT Narrative ECG - 04/01/2018 10:23 AM EDT RR Interval= 923 ms VT Interval= 168 ms QRSD Interval= 86 ms QT Interval= 420 ms QTc Interval= 437 ms Heart Rate= 65 ms P [place]= 50 deg QRS [place]= -2 deg T Wave [place]= 47 deg I: 40 [place]= -5 deg T: 40 [place]= [address] [place]= 85 deg SINUS RHYTHM NO SIGNIFICANT CHANGE FROM PREVIOUS ECG Electronically Signed by: ??Harrison Jett (Debra) ([facility]) 01-Apr-2018 10:22:38 Date and Time of Study: 2018-04-01 07:21:49 Procedure Note Harrison Jett MD - 04/01/2018 RR Interval= 923 ms VT Interval= 168 ms QRSD Interval= 86 ms QT Interval= 420 ms QTc Interval= 437 ms Heart Rate= 65 ms P [place]= 50 deg QRS [place]= -2 deg T Wave [place]= 47 deg I: 40 [place]= -5 deg T: 40 [place]= [address] [place]= 85 deg SINUS RHYTHM NO SIGNIFICANT CHANGE FROM PREVIOUS ECG Electronically Signed by: Harrison Jett (Debra) ([facility]) [id number] Date and Time of Study: 2018-04-01 07:21:49 Harrison Jett MD ECG ORDERABLES Final Result ECG * (ABNORMAL) Lipid Panel (04/01/2018 3:55 AM EDT) Total Cholesterol 214(H) 0 - 200 mg/dL 04/01/2018 5:29 AM EDT [facility] Triglycerides 259(H) 0 - 150 mg/dL 04/01/2018 5:29 AM EDT [facility] HDL Cholesterol 28(L) 40 - 60 mg/dL 04/01/2018 5:29 AM EDT [facility] LDL Cholesterol 134(H) 0 - 100 mg/dL 04/01/2018 5:29 AM T [facility] VLDL Cholesterol 51.8(H) 5 - 40 mg/dL 04/01/2018 5:29 AM T [facility] LDL/HDL Ratio 4.79 04/01/2018 5:29 AM [facility] Blood Line / Unknown 04/01/2018 3: 55 AM EDT 04/01/2018 4:53 AM EDT [facility] - 04/01/2018 5:29 AM EDT Cholesterol [...] ? 160-189 mg/dL Very High ?>189 mg/dL Harrison Jett MD LAB BLOOD ORDERABLES Final Res ult Performing Organization Address [facility] de Phone Number [facility]
[address] [place] [address], * Hemoglobin A1c (04/01/2018 3:55 AM EDT) Hemoglobin A1C 5.60 4.80 - 5.60 % 04/01/2018 5:15 AM EDT [facility] Blood Line / Unknown 04/01/2018 3: 55 AM EDT 04/01/2018 4:54 AM EDT [facility] - 04/01/2018 5:15 AM EDT Hemoglobin A1C Ranges: Increased Risk for Diabetes ??5.7% to 6.4% Diabetes ? >= 6.5% Diabetic Goal ?< 7.0% Harrison Jett MD LAB BLOOD ORDERABLES Final Res ult Performing Organization Address [facility] de Phone Number [facility]
[address] [place] [address], * (ABNORMAL) Troponin (04/01/2018 3:55 AM EDT) Pathologist [facility] Troponin T 0.370(HH) 0.000 - 0.030 ng/mL 04/01/2018 5:34 AM EDT [facility] Blood Line / Unknown 04/01/2018 3: 55 AM EDT 04/01/2018 4:53 AM EDT Narrative [facility] - 04/01/2018 5:34 AM EDT Troponin T Reference Ranges: Less than 0.03 ng/mL: ?Negative for AMI 0.03 to 0.09 ng/mL: ?Indeterminant for AMI Greater than 0.09 ng/mL: Positive for AMI Harrison Jett MD LAB BLOOD ORDERABLES Final Res ult [facility]
[address] [place] [address], * (ABNORMAL) Basic Metabolic Panel (04/01/2018 3:55 AM EDT) [facility] Glucose 91 65 - 99 mg/dL 04/01/2018 5:30 AM EDT [facility] BUN 9 6 - 20 mg/dL 04/01/2018 5:30 AM T [facility] Creatinine 0.69(L) 0.76 - 1.27 mg/dL 04/01/2018 5:30 AM EDT [facility] Sodium 140 136 - 145 mmol/L 04/01/2018 5:30 AM EDT [facility] Potassium 3.3(L) 3.5 - 5.2 mmol/L 04/01/2018 5:30 AM EDT [facility] Chloride 104 98 - 107 mmol/L 04/01/2018 5:30 AM EDT [facility] CO2 22.9 22.0 - 29.0 mmol/L 04/01/2018 5:30 AM EDT [facility] Calcium 8.4(L) 8.6 - 10.5 mg/dL 04/01/2018 5:30 AM EDT [facility] eGFR Non Amer 120 >60 mL/min/1.7 3 04/01/2018 5:30 AM EDT [facility] BUN/Creatinine Ratio 13.0 7.0 - 25.0 04/01/2018 5:30 AM EDT [facility] Anion Gap 13.1 mmol/L 04/01/2018 5:30 AM EDT [facility] Blood Line / Unknown 04/01/2018 3: 55 AM EDT 04/01/2018 4:53 AM EDT [facility] - 04/01/2018 5:30 AM EDT GFR Normal >60 Chronic Kidney Disease <60 Kidney Failure <15 us Harrison Jett MD LAB BLOOD ORDERABLES Final Res ult [facility]
[address] [place] [address], * (ABNORMAL) CBC (No Diff) (04/01/2018 3:55 AM EDT) WBC 10.71(H) 4.50 - 10.70 10*3/mm3 04/01/2018 5:05 AM EDT [facility] RBC 5.11 4.60 - 6.00 10*6/mm3 04/01/2018 5:05 AM EDT [facility] Hemoglobin 16.2 13.7 - 17.6 g/dL 04/01/2018 5:05 AM T [facility] Hematocrit 48.4 40.4 - 52.2 % 04/01/2018 5:05 AM EDT [facility] MCV 94.7 79.8 - 96.2 fL 04/01/2018 5:[facility] MCH 31.7 27.0 - 32.7 pg 04/01/2018 5:05 AM T [facility] MCHC 33.5 32.6 - 36.4 g/dL 04/01/2018 5:05 AM EDT [facility] RDW 12.9 11.5 - 14.5 % 04/01/2018 5:05 AM EDT [facility] RDW-SD 44.7 37.0 - 54.0 fl 04/01/2018 5:05 AM EDT [facility] MPV 11.0 6.0 - 12.0 fL 04/01/2018 5:05 AM EDT [facility] Platelets 141 140 - 500 10*3/mm3 04/01/2018 5:05 AM EDT [facility] Blood Line / Unknown 04/01/2018 3: 55 AM EDT 04/01/2018 4:51 AM EDT Harrison Jett MD LAB BLOOD ORDERABLES Final Res ult Performing Organization Address [facility]/ZIP Co de Phone Number [facility]
[address] [place] [address], * POC Glucose Once (03/31/2018 5:53 PM EDT) Glucose 119 70 - 130 mg/dL 03/31/2018 5:54 PM EDT [facility] LABORATORY Blood 03/31/2018 5:53 PM EDT 03/31/2018 5:54 PM EDT Narrative [facility] - 03/31/2018 5:54 PM EDT Meter: [id number] Butter Printer: [id number] Mino Emery NA Harrison Jett MD POINT OF CARE TEST ORDERABLES Final Result Performing Organization Address City/[facility]/ZIP Co de Phone Number [facility]
[address] [id number], * POC Glucose Once (03/31/2018 4:03 PM EDT) Glucose 124 70 - 130 mg/dL 03/31/2018 4:04 PM EDT [facility] Blood 03/31/2018 4:03 PM EDT 03/31/2018 4:04 PM EDT Narrative [facility] - 03/31/2018 4:04 PM EDT Meter: [id number] Butter Printer: [id number] Paxton Olga NA us No Known Provider POINT OF CARE TEST ORDERABLES Final Result [facility]
[address] [place] [address], * ECHO COMPLETE W/ DOPPLER AND COLOR FLOW (03/31/2018 3:06 PM EDT) BSA 2.4 m^2 E[facility] RAD IVSd 1.0 cm EMC RAD LVIDd 5.2 cm EMC RAD LVIDs 3.6 cm EMC RAD LVPWd 1.0 cm EMC RAD IVS/LVPW 1.0 EMC RAD FS 30.8 % EMC RAD EDV(Teich) 129.5 ml EMC RAD ESV(Teich) 54.4 ml EMC RAD EF(Teich) 58.0 % EMC RAD EDV(cubed) 140.6 ml EMC RAD ESV(cubed) 46.7 ml EMC RAD EF(cubed) 66.8 % EMC RAD LV mass(C)d 194.2 grams EMC RAD LV mass(C)dI 82.2 grams/m^2 EMC RAD SV(Teich) 75.1 ml EMC RAD SI(Teich) 31.8 ml/m^2 EMC RAD SV(cubed) 94.0 ml EMC RAD SI(cubed) 39.8 ml/m^2 EMC RAD Ao root diam 3.5 cm EMC RAD Ao root area 9.6 cm^2 EMC RAD ACS 2.4 cm EMC RAD LVOT diam 2.2 cm EMC RAD LVOT area 3.8 cm^2 EMC RAD LVOT area(traced) 3.8 cm^2 EMC RAD RVOT diam 2.8 cm EMC RAD RVOT area 6.2 cm^2 EMC RAD LVLd ap4 9.0 cm EMC RAD EDV(MOD-sp4) 104.0 ml EMC RAD LVLs ap4 7.9 cm EMC RAD ESV(MOD-sp4) 41.0 ml EMC RAD EF(MOD-sp4) 60.6 % EMC RAD LVLd ap2 7.7 cm EMC RAD EDV(MOD-sp2) 60.0 ml EMC RAD LVLs ap2 7.1 cm EMC RAD ESV(MOD-sp2) 33.0 ml EMC RAD EF(MOD-sp2) 45.0 % EMC RAD SV(MOD-sp4) 63.0 ml EMC RAD SVi(MOD-SP4) 26.7 ml/m^2 EMC RAD SV(MOD-sp2) 27.0 ml EMC RAD SVi(MOD-SP2) 11.4 ml/m^2 EMC RAD Ao root area (BSA corrected) 1.5 EMC RAD EF - Contrast (2Ch) 45.0 ml/m^2 EMC RAD EF - Contrast (4Ch) 60.6 ml/m^2 EMC RAD LV Stern Vol (BSA corrected) 44.0 ml/m^2 EMC RAD LV Sys Vol (BSA corrected) 17.4 ml/m^2 EMC RAD MV A dur 0.14 sec EMC RAD MV E max giancarlo 77.5 cm/sec EMC RAD MV A max giancarlo 97.2 cm/sec EMC RAD MV E/A 0.8 EMC RAD MV V2 mean 55.9 cm/sec EMC RAD MV mean PG 1.0 mmHg EMC RAD MV V2 VTI 29.6 cm EMC RAD MVA(VTI) 4.0 cm^2 EMC RAD MV P1/2t max giancarlo 87.6 cm/sec EMC RAD MV P1/2t 71.5 msec EMC RAD MVA(P1/2t) 3.1 cm^2 EMC RAD MV dec slope 359.0 cm/sec^2 EMC RAD MV dec time 0.22 sec EMC RAD Ao V2 mean 92.2 cm/sec EMC RAD Ao mean PG 4.0 mmHg EMC RAD Ao mean PG (full) 0 mmHg EMC RAD Ao V2 VTI 32.7 cm EMC RAD SAGE(I,A) 3.6 cm^2 EMC RAD SAGE(I,D) 3.6 cm^2 EMC RAD LV V1 mean PG 4.0 mmHg EMC RAD LV V1 mean 88.5 cm/sec EMC RAD LV V1 VTI 30.8 cm EMC RAD SV(Ao) 314.6 ml EMC RAD SI(Ao) 133.2 ml/m^2 EMC RAD SV(LVOT) 117.1 ml EMC RAD SV(RVOT) 145.9 ml EMC RAD SI(LVOT) 49.6 ml/m^2 EMC RAD PA V2 max 104.0 cm/sec EMC RAD PA max PG 4.3 mmHg EMC RAD PA max PG (full) 1.1 mmHg EMC RAD BH CV ECHO PETERSON - PVA(V,A) 5.3 cm^2 EMC RAD BH CV ECHO PETERSON - PVA(V,D) 5.3 cm^2 EMC RAD PA acc slope 6.9 cm/sec^2 EMC RAD PA acc time 0.14 sec EMC RAD RV V1 max PG 3.2 mmHg EMC RAD RV V1 mean PG 2.0 mmHg EMC RAD RV V1 max 89.5 cm/sec EMC RAD RV V1 mean 63.5 cm/sec EMC RAD RV V1 VTI 23.7 cm EMC RAD TR max giancarlo 173.0 cm/sec EMC RAD RVSP(TR) 20.0 mmHg EMC RAD RAP systole 8.0 mmHg EMC RAD PA pr(Accel) 15.6 mmHg EMC RAD Pulm Sys Giancarlo 63.7 cm/sec EMC RAD Pulm Stern Giancarlo 46.3 cm/sec EMC RAD Pulm S/D 1.4 EMC RAD Qp/Qs 1.2 EMC RAD Pulm A Revs Dur 0.12 sec EMC RAD Pulm A Revs Giancarlo 28.6 cm/sec EMC RAD MVA P1/2T LCG 2.5 cm^2 EMC RAD BH CV ECHO PETERSON - BZI_BMI 34.6 kilograms/ m^2 EMC RAD BH CV ECHO PETERSON - BSA(HAYCOCK) 2.5 m^2 EMC RAD BH CV ECHO PETERSON - BZI_METRIC_WEIG HT 115.7 kg EMC RAD BH CV ECHO PETERSON - BZI_METRIC_HEIG HT 182.9 cm EMC RAD Target HR (85%) 142 bpm EMC RAD Max. Pred. HR (100%) 167 bpm EMC RAD BH CV VAS BP RIGHT ARM 129/90 mmHg EMC RAD RV S' 14.00 cm/sec EMC RAD RV Base 3.50 cm EMC RAD Avg E/e' ratio 8.61 EMC RAD Ao pk giancarlo 151.0 cm/sec EMC RAD EF(MOD-bp) 54.0 % EMC RAD Lat Peak E' Giancarlo 10.0 cm/sec EMC RAD LV V1 max 146.0 cm/sec EMC RAD Med Peak E' Giancarlo 8.00 cm/sec EMC RAD TAPSE (>1.6) 2.20 cm2 EMC RAD Anatomical Region Laterality Modality Ultrasound 03/31/2018 2:38 PM EDT Narrative 03/31/2018 3:35 PM EDT ?? Calculated EF = 54%. ?? Left ventricular systolic function is normal. ?? Left ventricular diastolic dysfunction (grade I) consistent with impaired relaxation. ?? Normal valvular structure and function Left Ventricle Left ventricular systolic function is normal. Calculated EF = 54%. Estimated EF was in agreement with the calculated EF. Normal left ventricular cavity size and wall thickness noted. All left ventricular wall segments contract normally. Left ventricular diastolic dysfunction is noted (grade I) consistent with impaired relaxation. Right Ventricle Normal right ventricular cavity size, wall thickness, systolic function and septal motion noted. Left Atrium Normal left atrial size and volume noted. Right Atrium Normal right atrial size noted. Mitral Valve The mitral valve is normal in structure. No mitral valve regurgitation is present. No significant mitral valve stenosis is present. Tricuspid Valve The tricuspid valve is normal. No tricuspid valve stenosis is present. No tricuspid valve regurgitation is present. Aortic Valve The aortic valve is structurally normal. No aortic valve regurgitation is present. No aortic valve stenosis is present. Pulmonic Valve The pulmonic valve is structurally normal. There is no significant pulmonic valve stenosis present. There is no pulmonic valve regurgitation present. Pericardium The pericardium is normal. There is no evidence of pericardial effusion. Additional Study Details A two-dimensional transthoracic echocardiogram with complete color flow and Doppler was performed. The study is technically good for diagnosis. Greater Vessels No dilation of the aortic root is present. Wall Scoring Resting Score Index: 1.000 Percent Normal: 100.0% The left ventricular wall motion is normal. us Harrison Jett MD CV ECHO ORDERABLES Final Resul t * (ABNORMAL) POC Glucose Once (03/31/2018 11:25 AM EDT) Glucose 142(H) 70 - 130 mg/dL 03/31/2018 11:27 AM EDT [facility] Blood 03/31/2018 11:2 5 AM EDT 03/31/2018 11:27 AM EDT Narrative [facility] - 03/31/2018 11:27 AM EDT Meter: [id number] Butter Printer: [id number] Paxton RENAE No Known Provider POINT OF CARE TEST ORDERABLES Final Result [facility]
[address] [place] [address], * ECG 12 Lead (03/31/2018 10:24 AM EDT) 03/31/2018 10:2 4 AM EDT [facility] ECG - 03/31/2018 4:56 PM EDT RR Interval= 938 ms VT Interval= 180 ms QRSD Interval= 98 ms QT Interval= 448 ms QTc Interval= 463 ms Heart Rate= 64 ms P [place]= 56 deg QRS [place]= 25 deg T Wave [place]= 77 deg I: 40 [place]= 23 deg T: 40 [place]= [address] ST [place]= 87 deg SINUS RHYTHM NO PRIOR TRACING AVAILABLE FOR COMPARISON Electronically Signed by: ??Ken Mazariegos ([facility]) 31-Mar-2018 16:54:52 Date and Time of Study: 2018-03-31 10:24:42 Procedure Note Ken Mazariegos MD - 03/31/2018 RR Interval= 938 ms VT Interval= 180 ms QRSD Interval= 98 ms QT Interval= 448 ms QTc Interval= 463 ms Heart Rate= 64 ms P [place]= 56 deg QRS [place]= 25 deg T Wave [place]= 77 deg I: 40 [place]= 23 deg T: 40 [place]= [address] ST [place]= 87 deg SINUS RHYTHM NO PRIOR TRACING AVAILABLE FOR COMPARISON Electronically Signed by: Ken Mazariegos ([facility]) 31-Mar-2018 16:54:52 Date and Time of Study: 2018-03-31 10:24:42 Harrison Jett MD ECG ORDERABLES Final Result Performing Organization Address [facility] Co de Phone Number ECG * (ABNORMAL) POC Glucose Once (03/31/2018 9:05 AM EDT) Glucose 148(H) 70 - 130 mg/dL 03/31/2018 9:24 AM EDT [facility] Blood 03/31/2018 9:05 AM EDT 03/31/2018 9:24 AM EDT Narrative [facility] - 03/31/2018 9:24 AM EDT Meter: [id number] Butter Printer: [id number] Arnold Flores RN No Known Provider POINT OF CARE TEST ORDERABLES Final Result Performing Organization Address [facility] de Phone Number [facility]
[address] [place] [address], * (ABNORMAL) POC Activated Clotting Time (03/31/2018 8:42 AM EDT) Activated Clotting Time 268(H) 82 - 152 Seconds 04/01/2018 7:06 AM EDT [facility] Comment:Serial Number: [id number] 1Operator: [id number] Blood 03/31/2018 8:42 AM EDT 04/01/2018 7:06 AM EDT Harrison Jett MD POINT OF CARE TEST ORDERABLES Final Result Performing Organization Address [facility] de Phone Number [facility]
[address] [place] [address], * LEFT HEART CATH, CORONARY ANGIOGRAPHY, LEFT VENTRICULOGRAPHY, PERC CORONARY INTERVENTION, STENT FLOR- CORONARY (03/31/2018 8:41 AM EDT) Anatomical Region Laterality Modality X-Ray Angiograph y Narrative 03/31/2018 9:13 AM EDT CARDIAC CATHETERIZATION REPORT Procedure:Left heart catheterization, angioplasty and drug eluting stent placement DATE OF PROCEDURE: 03/31/18 PROCEDURE PERFORMED BY: Harrison Jett MD, [facility] INDICATION FOR PROCEDURE:Inferior STEMI DESCRIPTION OF PROCEDURE: After consent was obtained, access was gained in his right radial artery using a micropuncture technique. A 6-Iranian short sheath was placed without difficulty. ??Intraarterial cocktail was given. A 6 Fr JR4 guiding catheter was passed up and intubated the right coronary artery. ??Angiography was performed and percutaneous coronary intervention was performed. ??Following completion of the intervention a 5 Fr JL3.5 diagnostic catheter was used to perform angiography on the LCA. ?? Left ventriculography was then performed. Patient tolerated the procedure well without early complication and EBL was minimal. ??At the conclusion, the sheath was removed and hemostasis was obtained. The patient went to the CCU in stable condition. FINDINGS: LEFT VENTRICULOGRAPHY: The LV pressure was 134/10 . ??There was normal LV systolic function without segmental wall motion abnormality . ??There was no mitral insufficiency or gradient across the aortic valve on pullback. CORONARY ANGIOGRAPHY: Left main: Normal Left anterior descending: Normal proximally luminal irregularities in the midportion another 20% distally normal diagonals are normal Ramus intermedius:Not present Circumflex: Normal proximally 20% mid disease distally is normal RCA: Is a dominant vessel. ??Normal proximally 99% mid flow there is some thrombus in it distally the vessels normal Interventional Note: A JR4 guide intubated the right coronary artery. ?A total of 21,000 units of heparin was given and the ACT was therapeutic. ??60 mg of Effient was given. ??A BMW wire was passed into the distal RCA. ??A 4.0 x 12 mm trek balloon was inflated at 10 estephanie twice and we placed a 4.0 x 15 mm Xience Shruthi drug-eluting stent at 12 estephanie. ??We postdilated that with a 4.0 x 12 mm NC trek balloon at 20 estephanie. ??I gave high doses of intracoronary adenosine and at the conclusion there was 0% residual and KIERA-3 flow at that point balloons wires and guides were removed TR band was applied SUMMARY: Inferior STEMI successfully treated with angioplasty and stenting EBL: ?? Minimal Specimens: None PCI Segment: ??mRCA Pre-stenosis: ??90 Post-stenosis ??0 Lesion Type ??C KIERA Flow Pre ??0 KIERA Flow Post 3 Dissection ??none RECOMMENDATIONS:Routine post myocardial infarction and percutaneous coronary intervention care. Echo in 24 hours Aggressive risk modification Cardiac rehab referral Harrison Jett MD 03/31/18 9:08 AM Harrison Jett MD CV CARDIAC CATH ORDERABLES Fin al Result * (ABNORMAL) POC Activated Clotting Time (03/31/2018 8:30 AM EDT) [facility] Activated Clotting Time 252(H) 82 - 152 Seconds 04/01/2018 7:06 AM EDT [facility] Comment:Serial Number: [id number] 1Operator: [id number] Blood 03/31/2018 8:30 AM EDT 04/01/2018 7:06 AM EDT Harrison Jett MD POINT OF CARE TEST ORDERABLES Final Result [facility]
[address] [place] [address], * (ABNORMAL) CBC Auto Differential (03/31/2018 8:25 AM EDT) [facility] WBC 13.00(H) 4.50 - 10.70 10*3/mm3 03/31/2018 8:49 AM EDT [facility] RBC 4.96 4.60 - 6.00 10*6/mm3 03/31/2018 8:49 AM EDT [facility] Hemoglobin 16.1 13.7 - 17.6 g/dL 03/31/2018 8:49 AM EDT [facility] Hematocrit 45.5 40.4 - 52.2 % 03/31/2018 8:49 AM EDT [facility] MCV 91.7 79.8 - 96.2 fL 03/31/2018 8:49 AM [facility] MCH 32.5 27.0 - 32.7 pg 03/31/2018 8:49 AM [facility] MCHC 35.4 32.6 - 36.4 g/dL 03/31/2018 8:49 AM [facility] RDW 13.1 11.5 - 14.5 % 03/31/2018 8:49 AM [facility] RDW-SD 43.4 37.0 - 54.0 fl 03/31/2018 8:49 AM [facility] MPV 11.0 6.0 - 12.0 fL 03/31/2018 8:49 AM [facility] Platelets 169 140 - 500 10*3/mm3 03/31/2018 8:49 AM [facility] Neutrophil % 58.6 42.7 - 76.0 % 03/31/2018 8:49 AM [facility] Lymphocyte % 33.5 19.6 - 45.3 % 03/31/2018 8:49 AM [facility] Monocyte % 5.5 5.0 - 12.0 % 03/31/2018 8:49 AM [facility] Eosinophil % 2.2 0.3 - 6.2 % 03/31/2018 8:49 AM [facility] Basophil % 0.2 0.0 - 1.5 % 03/31/2018 8:49 AM [facility] Immature Grans % 0.5 0.0 - 0.5 % 03/31/2018 8:49 AM [facility] Neutrophils, Absolute 7.61 1.90 - 8.10 10*3/mm3 03/31/2018 8:49 AM [facility] Lymphocytes, Absolute 4.36 0.90 - 4.80 10*3/mm3 03/31/2018 8:49 AM [facility] Monocytes, Absolute 0.71 0.20 - 1.20 10*3/mm3 03/31/2018 8:49 AM [facility] Eosinophils, Absolute 0.29 0.00 - 0.70 10*3/mm3 03/31/2018 8:49 AM EDT [facility] Basophils, Absolute 0.03 0.00 - 0.20 10*3/mm3 03/31/2018 8:49 AM EDT [facility] Immature Grans, Absolute 0.06(H) 0.00 - 0.03 10*3/mm3 03/31/2018 8:49 AM EDT [facility] Blood Right upper arm structure / Unknown Line / Unknown 03/31/2018 8:25 AM EDT 03/31/2018 8:44 AM EDT Harrison Jett MD LAB BLOOD ORDERABLES Final Res ult Performing Organization Address [facility] de Phone Number [facility]
[address] [place] [address], * Troponin (03/31/2018 8:25 AM EDT) Troponin T <0.010 0.000 - 0.030 ng/mL 03/31/2018 9:13 AM EDT [facility] Blood Right upper arm structure / Unknown Line / Unknown 03/31/2018 8:25 AM EDT 03/31/2018 8:44 AM EDT Narrative [facility] - 03/31/2018 9:13 AM EDT Troponin T Reference Ranges: Less than 0.03 ng/mL: ?Negative for AMI 0.03 to 0.09 ng/mL: ?Indeterminant for AMI Greater than 0.09 ng/mL: Positive for AMI Harrison Jett MD LAB BLOOD ORDERABLES Final Res ult Performing Organization Address [facility] Co de Phone Number [facility]
[address] [place] [address], * (ABNORMAL) Protime-INR (03/31/2018 8:25 AM EDT) Protime 14.7(H) 11.7 - 14.2 Seconds 03/31/2018 9:17 AM EDT [facility] INR 1.17(H) 0.90 - 1.10 03/31/2018 9:17 AM EDT [facility] Blood Right upper arm structure / Unknown Line / Unknown 03/31/2018 8:25 AM EDT 03/31/2018 8:44 AM EDT Harrison Jett MD LAB BLOOD ORDERABLES Final Res ult [facility]
[address] [place] [address], * (ABNORMAL) Comprehensive Metabolic Panel (03/31/2018 8:25 AM EDT) Glucose 156(H) 65 - 99 mg/dL 03/31/2018 9:18 AM T [facility] BUN 14 6 - 20 mg/dL 03/31/2018 9:18 AM [facility] Creatinine 0.89 0.76 - 1.27 mg/dL 03/31/2018 9:18 AM T [facility] Sodium 141 136 - 145 mmol/L 03/31/2018 9:18 AM [facility] Potassium 2.5(L) 3.5 - 5.2 mmol/L 03/31/2018 9:18 AM T [facility] Chloride 103 98 - 107 mmol/L 03/31/2018 9:18 AM EDT [facility] CO2 22.4 22.0 - 29.0 mmol/L 03/31/2018 9:18 AM T [facility] Calcium 8.7 8.6 - 10.5 mg/dL 03/31/2018 9:18 AM [facility] Total Protein 6.5 6.0 - 8.5 g/dL 03/31/2018 9:18 AM T [facility] Albumin 4.30 3.50 - 5.20 g/dL 03/31/2018 9:18 AM EDT [facility] ALT (SGPT) 43(H) 1 - 41 U/L 03/31/2018 9:18 AM EDT [facility] AST (SGOT) 22 1 - 40 U/L 03/31/2018 9:18 AM EDT [facility] Alkaline Phosphatase 78 39 - 117 U/L 03/31/2018 9:18 AM EDT [facility] Total Bilirubin 1.7(H) 0.1 - 1.2 mg/dL 03/31/2018 9:18 AM EDT [facility] eGFR Non Amer 89 >60 mL/min/1.7 3 03/31/2018 9:18 AM T [facility] eGFR Amer 108 >60 mL/min/1.7 3 03/31/2018 9:18 AM [facility] Globulin 2.2 gm/dL 03/31/2018 9:18 AM T [facility] A/G Ratio 2.0 g/dL 03/31/2018 9:18 AM T [facility] BUN/Creatinine Ratio 15.7 7.0 - 25.0 03/31/2018 9:18 AM T [facility] Anion Gap 15.6 mmol/L 03/31/2018 9:18 AM T [facility] Blood Right upper arm structure / Unknown Line / Unknown 03/31/2018 8:25 AM EDT 03/31/2018 8:44 AM EDT us Harrison Jett MD LAB BLOOD ORDERABLES Final Res ult [facility]
[address] [place] [address], * (ABNORMAL) aPTT (03/31/2018 8:25 AM EDT) PTT >200.0(HH) 22.7 - 35.4 seconds 03/31/2018 9:17 AM EDT [facility] Blood Right upper arm structure / Unknown Line / Unknown 03/31/2018 8:25 AM EDT 03/31/2018 8:44 AM EDT Harrison Jett MD LAB BLOOD ORDERABLES Final Res ult [facility]
[address] [place] [address], * SCANNED - TELEMETRY (03/31/2018) Anatomical Region Laterality Modality Other [facility] Onbase ECG ORDERABLES Final Result documented in this encounter Visit Diagnoses Diagnosis STEMI involving right coronary artery documented in this encounter Admitting Diagnoses Diagnosis STEMI involving right coronary artery documented in this encounter Administered Medications Inactive Administered Medications - up to 3 most recent administrations Medication Order MAR Action Action Date Dose Rate Site amLODIPine (NORVASC) tablet 10 mg 10 mg, Oral, Every 24 Hours Scheduled, First dose on Yamila 03/31/18 at 2100, Caution: Look alike/sound alike drug alert. Avoid grapefruit juice. Given 03/31/2018 10:47 PM EDT 10 mg aspirin chewable tablet 81 mg 81 mg, Oral, Daily, First dose on Yamila 03/31/18 at 0907, Herbal/drug interaction: Avoid use with ginkgo biloba. Do not exceed 4 grams of aspirin in a 24 hr period. If given for pain, use the following pain scale: Mild Pain = Pain Score of 1-3, CPOT 1-2 Moderate Pain = Pain Score of 4-6, CPOT 3-4 Severe Pain = Pain Score of 7-10, CPOT 5-8 Given 04/01/2018 8:55 AM EDT 81 mg Given 03/31/2018 11:30 AM EDT 81 mg HYDROcodone-acetaminophen (NORCO) 5-325 MG per tablet 1 tablet 1 tablet, Oral, Every 4 Hours PRN, Moderate Pain, Starting on Yamila 03/31/18 at 0902, For 10 days, {JOSE} Do not exceed 4 grams of acetaminophen in a 24 hr period. If given for pain, use the following pain scale: Mild Pain = Pain Score of 1-3, CPOT 1-2 Moderate Pain = Pain Score of 4-6, CPOT 3-4 Severe Pain = Pain Score of 7-10, CPOT 5-8 Given 03/31/2018 3:26 P M EDT 1 tablet Given 03/31/2018 10:17 AM EDT 1 tablet lisinopril (PRINIVIL,ZESTRIL) 10 mg, hydrochlorothiazide (HYDRODIURIL) 12.5 mg for ZESTORTIC 10-12.5 Oral, Every 24 Hours Scheduled, First dose on Yamila 03/31/18 at 2200, Give both components Given 03/31/2018 10:48 PM EDT morphine injection 1 mg 1 mg, Intravenous, Every 4 Hours PRN, Severe Pain, Starting on Yamila 03/31/18 at 0902, For 10 days, If given for pain, use the following pain scale: Mild Pain = Pain Score of 1-3, CPOT 1-2 Moderate Pain = Pain Score of 4-6, CPOT 3-4 Severe Pain = Pain Score of 7-10, CPOT 5-8 Given 03/31/2018 5:20 PM EDT 1 mg Given 03/31/2018 1:05 PM EDT 1 mg naloxone (NARCAN) injection 0.4 mg 0.4 mg, Intravenous, Every 5 Minutes PRN, Respiratory Depression, Starting on Yamila 03/31/18 at 0902, If respiratory rate is less than 8 breaths/minute or patient is difficult to arouse stop any narcotics and contact physician. Administer slow IV push. Repeat as ordered until patient's respiratory rate is greater than 12 breaths/minute. nicotine (NICODERM CQ) 21 MG/24HR patch 1 patch 1 patch, Transdermal, Administer over 24 Hours, Every 24 Hours, First dose on Yamila 03/31/18 at 0907, Apply patch to clean, dry, hairless area daily. Remove old patch before applying new patch. Rotate patch site daily. May remove patch at bedtime if needed to prevent insomnia. At discharge, follow instructions on package. {PBKC} Acutely Hazardous. Waste BOTH Residual Medication and/or Empty Package. Medication Applied 04/01/2018 8:58 AM EDT 1 patch Left Arm Medication Applied 03/31/2018 11:33 AM EDT 1 patch Right Arm ondansetron (ZOFRAN) injection 4 mg 4 mg, Intravenous, Every 6 Hours PRN, Nausea, Vomiting, Starting on Yamila 03/31/18 at 0902 Given 03/31/2018 1:04 PM EDT 4 mg ondansetron (ZOFRAN) tablet 4 mg 4 mg, Oral, Every 6 Hours PRN, Nausea, Vomiting, Starting on Yamila 03/31/18 at 0902 ondansetron ODT (ZOFRAN-ODT) disintegrating tablet 4 mg 4 mg, Oral, Every 6 Hours PRN, Nausea, Vomiting, Starting on Yamila 03/31/18 at 0902, Place on tongue and allow to dissolve. potassium chloride (KLOR-CON) packet 40 mEq 40 mEq, Oral, As Needed, potassium replacement, see admin instructions, Starting on [facility] 03/31/18 at 1129, Potassium replacement Oral (may give capsule or powder packet) If K+ less than or equal to 3.1 give KCl 40 mEq q4h x 3 doses If K+ 3.2-3.6 give KCl 40 mEq q4h x 2 doses Check potassium 4 hours after last dose given. Check magnesium if K stays low after replacement. DO NOT GIVE if CrCl is less than 30 mL/minute or urine output is less than 30 mL/hr potassium chloride (MICRO-K) CR capsule 40 mEq 40 mEq, Oral, Once, On Yamila 03/31/18 at 1200, For 1 dose, Do not crush. Take with food. Given 03/31/2018 11:21 AM EDT 4 0 mEq potassium chloride (MICRO-K) CR capsule 40 mEq 40 mEq, Oral, As Needed, potassium replacement.?see admin instructions, Starting on [facility] 03/31/18 at 1129, Potassium replacement Oral (may give capsule or powder packet) If K+ less than or equal to 3.1 give KCl 40 mEq q4h x 3 doses If K+ 3.2-3.6 give KCl 40 mEq q4h x 2 doses Check potassium 4 hours after last dose given. Check magnesium if K stays low after replacement. DO NOT GIVE if CrCl is less than 30 mL/minute or urine output is less than 30 mL/hr Given 04/01/2018 9:06 AM EDT 40 mEq Given 04/01/2018 6:14 AM EDT 40 mEq Given 03/31/2018 9:08 PM EDT 40 mEq prasugrel (EFFIENT) tablet 10 mg 10 mg, Oral, Daily, First dose on Wed04/01/18 at 0900, May crush tablet and mix in water and administer immediately via a gastric tube. DO NOT ADMINISTER if patient has a history of stroke or TIA - contact prescriber. Given 04/01/2018 8:55 AM EDT 10 mg sodium chloride 0.9 % infusion 125 mL/hr, Intravenous, Continuous, Starting on [place] 03/31/18 at 0907, For 10 hours New Bag 03/31/2018 1:04 PM EDT 125 mL/hr 12 5 mL/hr Rate/Dose Change 03/31/2018 10:00 AM EDT 125 mL/hr 125 mL /hr documented in this encounter Active and Recently Administered Medications Times are shown in EDT. Scheduled Medication Order 03/30/2018 03/31/2018 04/01/2018 amLODIPine (NORVASC) tablet 10 mg 10 mg, Oral, Every 24 Hours Scheduled, First dose on Wed03/31/18 at 2100, Caution: Look alike/sound alike drug alert. Avoid grapefruit juice. 7901 (Given - Provider: Sherrie Hussein RN - Comment: awaiting from pharmacy) aspirin chewable tablet 81 mg 81 mg, Oral, Daily, First dose on Wed03/31/18 at 0907, Herbal/drug interaction: Avoid use with ginkgo biloba. Do not exceed 4 grams of aspirin in a 24 hr period. If given for pain, use the following pain scale: Mild Pain = Pain Score of 1-3, CPOT 1-2 Moderate Pain = Pain Score of 4-6, CPOT 3-4 Severe Pain = Pain Score of 7-10, CPOT 5-8 1130 (Given - Provider: Noelle Eastman RN) 0881 (Given - Provider: Mayra Herron RN) lisinopril (PRINIVIL,ZESTRIL) 10 mg, hydrochlorothiazide (HYDRODIURIL) 12.5 mg for ZESTORTIC 10-12.5 Oral, Every 24 Hours Scheduled, First dose on Wed03/31/18 at 2200, Give both components 0235 (Given - Provider: Sherrie Hussein RN) nicotine (NICODERM CQ) 21 MG/24HR patch 1 patch 1 patch, Transdermal, Administer over 24 Hours, Every 24 Hours, First dose on Wed03/31/18 at 0907, Apply patch to clean, dry, hairless area daily. Remove old patch before applying new patch. Rotate patch site daily. May remove patch at bedtime if needed to prevent insomnia. At discharge, follow instructions on package. {PBKC} Acutely Hazardous. Waste BOTH Residual Medication and/or Empty Package. 1133 (Medication Applied - Provider: Noelle Eastman, NATHAN) 0855 (Medication Removed - Provider: Mayra Herron, NATHAN)0858 (Medication Applied - Provider: Mayra Herron, NATHAN) potassium chloride (MICRO-K) CR capsule 40 mEq (COMPLETED) 40 mEq, Oral, Once, On Wed03/31/18 at 1200, For 1 dose, Do not crush. Take with food. 1121 (Given - Provider: Noelle Eastman RN) prasugrel (EFFIENT) tablet 10 mg 10 mg, Oral, Daily, First dose on Wed04/01/18 at 0900, May crush tablet and mix in water and administer immediately via a gastric tube. DO NOT ADMINISTER if patient has a history of stroke or TIA - contact prescriber. 0855 (Given - Provider: Mayra Herron, NATHAN) Continuous Medication Order 03/30/2018 03/31/2018 04/01/2018 sodium chloride 0.9 % infusion () 125 mL/hr, Intravenous, Continuous, Starting on Wed03/31/18 at 0907, For 10 hours 1000 (Rate/Dose Change - Provider: Noelle Eastman RN)1304 (New Bag - Provider: Sandra Barrett, NATHAN) PRN Medication Order 03/30/2018 03/31/2018 04/01/2018 aspirin tablet (CANCELED) As Needed, Starting on Wed03/31/18 at 0833 0833 (Given - Provider: Suzi Soriano RN - Comment: V.O,RV) BH (CUPID ONLY) ADENOSINE 6 MG/100ML MIXTURE injection (CANCELED) As Needed, Starting on Wed03/31/18 at 0829 0829 (Given - Provider: Harrison Jett MD)0831 (Given - Provider: Harrison Jett MD)0832 (Given - Provider: Harrison Jett MD) fentaNYL citrate (PF) (SUBLIMAZE) injection (CANCELED) As Needed, Starting on Yamila 03/31/18 at 0818 0818 (Given - Provider: Harrison Rasheed Jr., RN - Comment: vorv)0822 (Given - Provider: Suzi Soriano RN - Comment: vo rv)0835 (Given - Provider: Suzi Soriano RN - Comment: VO RV)0841 (Given - Provider: Harrison Rasheed Jr., NATHAN - Comment: V.O,RV) heparin (porcine) injection (CANCELED) As Needed, Starting on Yamila 03/31/18 at 0816 0816 (Given - Provider: Harrison Rasheed Jr., RN - Comment: vorv. verified)0834 (Given - Provider: Harrison Rasheed Jr., RN - Comment: V.O,RV, DOSAGE VERIFIED W/ SANTOS EVANS)0848 (Given - Provider: Harrison Rasheed Jr., RN - Comment: V.ORV, DOSAGE VERIFIED BY SANTOS EVANS) HYDROcodone-acetaminophen (NORCO) 5-325 MG per tablet 1 tablet 1 tablet, Oral, Every 4 Hours PRN, Moderate Pain, Starting on Yamila 03/31/18 at 0902, For 10 days, {JOSE} Do not exceed 4 grams of acetaminophen in a 24 hr period. If given for pain, use the following pain scale: Mild Pain = Pain Score of 1-3, CPOT 1-2 Moderate Pain = Pain Score of 4-6, CPOT 3-4 Severe Pain = Pain Score of 7-10, CPOT 5-8 1017 (Given - Provider: Noelle Eastman RN)1526 (Given - Provider: Noelle Eastman RN) iopamidol (ISOVUE-370) 76 % injection (CANCELED) As Needed, Starting on Yamila 03/31/18 at 0841 0841 (Given - Provider: Harrison Jett MD) lidocaine (XYLOCAINE) 2% injection (CANCELED) As Needed, Starting on Yamila 03/31/18 at 0819 0819 (Given - Provider: Latosha Shukla) metoprolol tartrate (LOPRESSOR) injection (CANCELED) As Needed, Starting on Yamila 03/31/18 at 0821 0821 (Given - Provider: Suzi Soriano RN - Comment: vo rv) midazolam (VERSED) injection (CANCELED) As Needed, Starting on Yamila 03/31/18 at 0817 0817 (Given - Provider: Harrison Rasheed Jr., RN - Comment: vorv) morphine injection 1 mg(Linked Group 1) 1 mg, Intravenous, Every 4 Hours PRN, Severe Pain, Starting on Yamila 03/31/18 at 0902, For 10 days, If given for pain, use the following pain scale: Mild Pain = Pain Score of 1-3, CPOT 1-2 Moderate Pain = Pain Score of 4-6, CPOT 3-4 Severe Pain = Pain Score of 7-10, CPOT 5-8 1305 (Given - Provider: Sandra Barrett RN)1720 (Given - Provider: Noelle Eastman RN) naloxone (NARCAN) injection 0.4 mg(Linked Group 1) 0.4 mg, Intravenous, Every 5 Minutes PRN, Respiratory Depression, Starting on Yamila 03/31/18 at 0902, If respiratory rate is less than 8 breaths/minute or patient is difficult to arouse stop any narcotics and contact physician. Administer slow IV push. Repeat as ordered until patient's respiratory rate is greater than 12 breaths/minute. ondansetron (ZOFRAN) injection 4 mg(Linked Group 2) 4 mg, Intravenous, Every 6 Hours PRN, Nausea, Vomiting, Starting on Yamila 03/31/18 at 0902 1304 (Given - Provider: Sandra Barrett RN) ondansetron (ZOFRAN) tablet 4 mg(Linked Group 2) 4 mg, Oral, Every 6 Hours PRN, Nausea, Vomiting, Starting on Yamila 03/31/18 at 0902 1304 (Not Given: See Alt - Provider: Sandra Barrett RN) ondansetron ODT (ZOFRAN-ODT) disintegrating tablet 4 mg(Linked Group 2) 4 mg, Oral, Every 6 Hours PRN, Nausea, Vomiting, Starting on Yamila 03/31/18 at 0902, Place on tongue and allow to dissolve. 1304 (Not Given: See Alt - Provider: Sandra Barrett RN) potassium chloride (KLOR-CON) packet 40 mEq 40 mEq, Oral, As Needed, potassium replacement, see admin instructions, Starting on Yamila 03/31/18 at 1129, Potassium replacement Oral (may give capsule or powder packet) If K+ less than or equal to 3.1 give KCl 40 mEq q4h x 3 doses If K+ 3.2-3.6 give KCl 40 mEq q4h x 2 doses Check potassium 4 hours after last dose given. Check magnesium if K stays low after replacement. DO NOT GIVE if CrCl is less than 30 mL/minute or urine output is less than 30 mL/hr potassium chloride (MICRO-K) CR capsule 40 mEq 40 mEq, Oral, As Needed, potassium replacement.?see admin instructions, Starting on Yamila 03/31/18 at 1129, Potassium replacement Oral (may give capsule or powder packet) If K+ less than or equal to 3.1 give KCl 40 mEq q4h x 3 doses If K+ 3.2-3.6 give KCl 40 mEq q4h x 2 doses Check potassium 4 hours after last dose given. Check magnesium if K stays low after replacement. DO NOT GIVE if CrCl is less than 30 mL/minute or urine output is less than 30 mL/hr 1520 (Given - Provider: Noelle Eastman RN)2108 (Given - Provider: Sherrie Hussein, NATHAN) 0614 (Given - Provider: Sherrie Hussein RN)0906 (Given - Provider: Mayra Herron RN) prasugrel (EFFIENT) tablet (CANCELED) As Needed, Starting on Wed03/31/18 at 0834 0834 (Given - Provider: Suzi Soriano RN - Comment: V.O,RV) sodium chloride 0.9 % infusion (COMPLETED) Continuous PRN, Starting on Yamila 03/31/18 at 0845 0817 (New Bag - Provider: Suzi Soriano RN - Comment: V.O,RV) verapamil (ISOPTIN) 500 mcg, nitroglycerin (TRIDIL) 200 mcg, heparin (porcine) 3,000 Units radial artery injection (CANCELED) As Needed, Starting on Yamila 03/31/18 at 0821 0821 (Given - Provider: Harrison Jett MD) Linked Groups Order Group 1: morphine injection 1 mgJump to med 1 mg, Intravenous, Every 4 Hours PRN, Severe Pain, Starting on Yamila 03/31/18 at 0902, For 10 days, If given for pain, use the following pain scale: Mild Pain = Pain Score of 1-3, CPOT 1-2 Moderate Pain = Pain Score of 4-6, CPOT 3-4 Severe Pain = Pain Score of 7-10, CPOT 5-8 And naloxone (NARCAN) injection 0.4 mgJump to med 0.4 mg, Intravenous, Every 5 Minutes PRN, Respiratory Depression, Starting on Yamila 03/31/18 at 0902, If respiratory rate is less than 8 breaths/minute or patient is difficult to arouse stop any narcotics and contact physician. Administer slow IV push. Repeat as ordered until patient's respiratory rate is greater than 12 breaths/minute. Group 2: ondansetron (ZOFRAN) tablet 4 mgJump to med 4 mg, Oral, Every 6 Hours PRN, Nausea, Vomiting, Starting on Yamila 03/31/18 at 0902 Or ondansetron ODT (ZOFRAN-ODT) disintegrating tablet 4 mgJump to med 4 mg, Oral, Every 6 Hours PRN, Nausea, Vomiting, Starting on Yamila 03/31/18 at 0902, Place on tongue and allow to dissolve. Or ondansetron (ZOFRAN) injection 4 mgJump to med 4 mg, Intravenous, Every 6 Hours PRN, Nausea, Vomiting, Starting on Yamila 03/31/18 at 0902 documented in this encounter Care Teams Physician Industrial Relationship Specialty Start Date End Date Garrett Montenegro MD [facility] [address] [place] [id number] PCP - General Internal Medicine 03/31/18 documented as of this encounter
--- OUTSIDE RECORDS SUMMARY | 2024-07-10 08:33 | XMS_ITS | Encounter Summary ---
[facility] Address [address] [place] [address] Care Team Providers Care Artist Relationship Manager Name Role Phone Garrett Pulido MD Primary Care Provider Encounter Details Date Type Department Care Team (Late st Contact Info) Description 04/16/2018 Readmission Management [facility] NURSE CALL [facility] [address] [place] [phone] Heber Becerril, RN Social History Tobacco Use Types Packs/Day Years [...] as of this encounter Miscellaneous Notes * Outreach Note - Heber Becerril, RN - 04/16/2018 12:40 PM EDT [facility]I Week 2 [facility] Does the patient have one of the following disease processes/diagnoses(primary or secondary)? AcuteMI (STEMI,NSTEMI) Week 2 attempt successful? Yes Call start time 1241 Call end time 1248 Discharge diagnosis ???STEMI involving right coronary artery ([facility]/HCC) I21 Meds reviewed with patient/caregiver? Yes Is the patient having any side effects they believe may be caused by any medication additions or changes? No Does the patient have all prescriptions related to this admission filled (includes statins,anticoagulants,HTN meds,anti-arrhythmia meds) Yes Is the patient taking all medications as directed (includes completed medication regime)? Yes Medication comments Pt reports he is taking Chantix for smoking cessation. Discussed his Chantix protocol and stop date. Does the patient have a primary care provider? Yes Does the patient have an appointment with their PCP,psych tech,or clinic within 7 days of discharge? Yes Has the patient kept scheduled appointments due by today? N/A Has home health visited the patient within 72 hours of discharge? N/A Psychosocial issues? No Did the patient receive a copy of their discharge instructions? Yes Nursing interventions Reviewed instructions with patient What is the patient's perception of their health status since discharge? Improving Nursing interventions Nurse provided patient education Is the patient/caregiver able to teach back signs and symptoms of when to call for help immediately: Sudden chest discomfort, Sudden discomfort in arms, back, neck or jaw, Shortness of breath at any time, Sudden sweating or clammy skin Nursing interventions Nurse provided patient education Is the pateint /caregiver able to teach back the importance of cardiac rehab? Yes Nursing interventions Provided education on importance of cardiac rehab Is the patient/caregiver able to teach back lifestyle changes to help prevent MIs Quit smoking Is the patient/caregiver able to teach back ways to prevent a second heart attack: Take medications, Follow up with MD, Participate in Cardiac Rehab If the patient is a current smoker, are they able to teach back resources for cessation? Smoking cessation medications Is the patient/caregiver able to teach back the hierarchy of who to call/visit for symptoms/problems? PCP, Specialist, Home health nurse, Urgent Care, ED, 911 Yes Week 2 call completed? Yes Heber Becerril RN documented in this encounter Plan of Treatment Not on file documented as of this encounter Visit Diagnoses Not on filedocumented in this encounter Care Teams Artist Relationship Manager Relationship Specialty Start Date End Date Garrett Pulido MD [address] [facility] [address] [place] [id number] PCP - General Internal Medicine 03/31/18 documented as of this encounter
--- OUTSIDE RECORDS SUMMARY | 2024-07-10 08:33 | XMS_ITS | Encounter Summary ---
[facility] [address] [place] [address] Care Team Providers Care Club Steward Name Role Phone Garrett Pluido MD Primary Care Provider [phone] Reason for Visit * (Routine) - Closed Specialty Diagnoses / Procedures Referred By Contac t Referred To Contact Radiology Procedures XR Chest PA & Lateral Dashawn Escobar MD [address] [place] [address] Phone: tel: fax: Referral ID Status Reason Start Date Expiration Date Visits Re quested Visits Authorized [id number] Closed 06/13/2021 06/13/2022 1 1 Encounter Details Date Type Department Care Team (Latest Contact Info) Description 06/13/2021 2:55 PM EDT - 06/13/2021 11:59 PM EDT Hospital Encounter [facility] XRAY [address] [place] [id number] Discharge Disposition: Home or Self Care Social [...] on file documented as of this encounter Medications at Time of Discharge [...] needed after 1 week 42 tablet 06/23/2021 1 docusate sodium (COLACE) 100 MG capsule Take 1 capsule by mouth 2 (Two) Times a Day for 15 days. 30 capsule 06/23/2021 3:20 PM EDT 06/23/2021 1 clopidogrel (PLAVIX) 75 MG tablet Take 75 mg by mouth Daily. 1 documented as of this encounter Plan of Treatment Not on file documented as of this encounter Procedures Procedure Name Priority Date/Time Associated Diagnosis Comments XR CHEST PA AND LATERAL Routine 06/13/2021 3:08 PM EDT documented in this encounter Results * XR Chest PA & Lateral (06/13/2021 3:08 PM EDT) Anatomical Region Laterality Modality Body, Chest N/A Radiographic Rand ging 06/15/2021 10:2 0 AM EDT Impressions 06/18/2021 5:29 PM EDT Mild chronic changes seen within the lung mark. No evidence of acute parenchymal disease. D: ??06/15/2021 E: ??06/16/2021 This report was finalized on 06/18/2021 5:[address] Suri Santos MD. Narrative 06/18/2021 5:29 PM EDT EXAMINATION: XR CHEST PA AND LATERAL- INDICATION: COPD, shortness of air, smoker, preop. COMPARISON: None. FINDINGS: PA and lateral view of the chest reveal cardiac and mediastinal silhouettes within normal limits. The lung mark are grossly clear. Mild chronic changes seen in the lung mark bilaterally. No focal parenchymal opacification is present. No pleural effusion or pneumothorax. Minimal degenerative change is seen within the spine. Pulmonary vascularity is within normal limits. ? Procedure Note Suri Santos MD - 06/18/2021 EXAMINATION: XR CHEST PA AND LATERAL- INDICATION: COPD, shortness of air, smoker, preop. COMPARISON: None. FINDINGS: PA and lateral view of the chest reveal cardiac and mediastinal silhouettes within normal limits. The lung mark are grossly clear. Mild chronic changes seen in the lung mark bilaterally. No focal parenchymal opacification is present. No pleural effusion or pneumothorax. Minimal degenerative change is seen within the spine. Pulmonary vascularity is within normal limits. IMPRESSION: Mild chronic changes seen within the lung mark. No evidence of acute parenchymal disease. E: 06/16/2021 This report was finalized on 06/18/2021 5:[address] Suri Santos MD. Dashawn Escobar MD IMG DIAGNOSTIC IMAGING ORDERABL ES Final Result documented in this encounter Visit Diagnoses Not on filedocumented in this encounter Care Teams Club Steward Relationship Specialty Start Date End Date Garrett Pulido MD [address] [facility] [address] [place] [id number] PCP - General Internal Medicine 03/31/18 documented as of this encounter
--- OUTSIDE RECORDS SUMMARY | 2024-07-10 08:33 | XMS_ITS | Encounter Summary ---
[facility] Address [address] [place] [address] Care Team Providers Care Agriculture Internship Name Role Phone Garrett Pulido MD Primary Care Provider [phone] Encounter Details Date Type Department Care Team (Late st Contact Info) Description 04/27/2018 Readmission Management [facility] NURSE CALL CENTER [address] [place] [phone] Federica Soto RN Social History Tobacco Use Types Packs/Day [...] encounter Miscellaneous Notes * Outreach Note - Federica Nuno RN - 04/27/2018 12:13 PM EDT AMI Week 3 [facility] the patient have one of the following disease processes/diagnoses(primary or secondary)? AcuteMI (STEMI,NSTEMI) Week 3 attempt successful? No Unsuccessful attempts Attempt 1 Federica Nuno RN documented in this encounter Plan of Treatment Not on file documented as of this encounter Visit Diagnoses Not on filedocumented in this encounter Care Teams Agriculture Internship Relationship Specialty Start Date End Date Garrett Pulido MD [address] [facility] [address] [place] [id number] PCP - General Internal Medicine 03/31/18 documented as of this encounter
--- OUTSIDE RECORDS SUMMARY | 2024-07-10 08:33 | XMS_ITS | Encounter Summary ---
[facility] [address] [place] [address] Care Team Providers Care Blood Bank Assistant Name Role Phone Garrett Pulido MD Primary Care Provider [phone] Encounter Details Date Type Department Care Team (Late st Contact Info) Description 05/02/2018 Readmission Management [facility] NURSE CALL CENTER [address] [place] [phone] Eduin Francisco, RN Social History Tobacco Use Types Packs/Day [...] encounter Miscellaneous Notes * Outreach Note - Eduin Francisco RN - 05/02/2018 3:56 PM EDT AMI Week 3 Survey [facility] the patient have one of the following disease processes/diagnoses(primary or secondary)? AcuteMI (STEMI,NSTEMI) Week 3 attempt successful? No Unsuccessful attempts Attempt 2 Eduin Francisco RN documented in this encounter Plan of Treatment Not on file documented as of this encounter Visit Diagnoses Not on filedocumented in this encounter Care Teams Blood Bank Assistant Relationship Specialty Start Date End Date Garrett Pulido MD [address] [facility] [address] [place] [phone] PCP - General Internal Medicine 03/31/18 documented as of this encounter
--- OUTSIDE RECORDS SUMMARY | 2024-07-10 08:33 | XMS_ITS | Encounter Summary ---
[facility] Address [address] [place] [address] Care Team Providers Care Utilization Coordinator Name Role Phone Garrett Pulido MD Primary Care Provider [phone] Encounter Details Date Type Department Care Team (Late st Contact Info) Description 04/04/2018 Readmission Management [facility] NURSE CALL C[facility] [address] [place] [phone] Eduin Francisco, RN Social History Tobacco [...] Outreach Note - Eduin Francisco RN - 04/04/2018 11:42 AM EDT AMI Week 1 Survey [facility]es [facility] the patient have one of the following disease processes/diagnoses(primary or secondary)? AcuteMI (STEMI,NSTEMI) Is there a successful TCM telephone encounter documented? No Week 1 attempt successful? Yes Call start time 1142 Call end time 1153 Discharge diagnosis ???STEMI involving right coronary artery (CMS/HCC) I21 Is patient permission given to speak with other caregiver? Yes Person spoke with today (if not patient) and relationship Lesia Lopez reviewed with patient/caregiver? Yes Is the patient having any side effects they believe may be caused by any medication additions or changes? No Does the patient have all prescriptions related to this admission filled (includes statins,anticoagulants,HTN meds,anti-arrhythmia meds) Yes Is the patient taking all medications as directed (includes completed medication regime)? Yes Does the patient have a primary care provider? Yes Does the patient have an appointment with their PCP,program medical director,or clinic within 7 days of discharge? Yes Has the patient kept scheduled appointments due by today? N/A Comments PCP on the . Needs a Cards MD appt. Psychosocial issues? No Did the patient receive [...] up with MD, Participate in Cardiac Rehab Is the patient/caregiver able to teach back the hierarchy of who to call/visit for symptoms/problems? PCP, Specialist, Home health nurse, Urgent Care, ED, 911 Yes Week 1 call completed Yes Eduin Francisco RN documented in this encounter Plan of Treatment Not on file documented as of this encounter Visit Diagnoses Not on filedocumented in this encounter Care Teams Utilization Coordinator Relationship Specialty Start Date End Date Garrett Pulido MD [address] [facility] [address] [place] [id number] PCP - General Internal Medicine 03/31/18 documented as of this encounter
--- OUTSIDE RECORDS SUMMARY | 2024-07-10 08:33 | XMS_ITS | Data Portability ---
Author Organization [facility] ADMIN Address [address] [place] [id number] Care Team Providers Care Brake Repairer Name Role Phone DIYA ROSALES Primary Care Provider Assessment No assessment recorded. Plan of Treatment Reminders Order Date Submit Date Provider Last Modified By Organization Details Last Modified Time Details Appointments OV EST 20 2024 09:20A M Diya Rosales MD Not available Not available Not available Lab uric acid, serum or plasma 2023 024 [facility] [address], [address], [place], [address], 03/08/2024 09:41:12 CMP, serum or plasma 2023 024 [facility], [address], [address], [place], [address], 03/08/2024 09:41:10 lipid panel, serum 2023 024 [facility], [address], [address], [place], [address], 03/08/2024 09:41:11 CBC w/ auto diff 2023 024 [facility], [address], [address], [place], [address], 03/08/2024 09:41:10 Referral orthopedi c surgeon referral 2022 023 [email or web address] Eduin Rosado MD, [address], [address], [place], [address], 01/26/2023 09:02:51 Procedures None recorded. Surgeries None recorded. Imaging LDCT, chest, for lung cancer screening 2023 024 [facility] (Centralized Scheduling), [address], [place], [address], 09/28/2023 16:01:47 Medication Orders albuterol sulfate HFA 90 mcg/actua tion aerosol inhaler 2022 023 [facility], [address], [address], 09/14/2022 11:05:37 allopurin ol 300 mg tablet 2023 024 [facility], [address], [address], 09/03/2023 16:56:35 cyclobenz aprine 10 mg tablet 2023 024 [facility], [address], [address], 09/03/2023 16:58:48 meloxicam 15 mg tablet 2023 024 [facility], [address], [address], 03/07/2024 11:45:25 cyclobenz aprine 10 mg tablet 2023 024 [facility], [address], [address], 03/07/2024 11:45:24 Patient TargetsNo targets recorded. Patient InstructionsNo instructions recorded. Reason for Referral Orthopedic Surgeon Referral for Shoulder pain 57 yo male with h/o degenerative changes in both shoulders, requesting cortisone injections Referring Physician: Diya Rosales, Internal Medicine, Encounter Date: 09/14/2022 Results Created Date Observation Date Name Description Value Unit Range Abnormal Flag Note LastModifiedBy Organization Detail LastModifiedTime 03/07/20 24 03/08/2024 CBC WITH DIFFE RENTI AL/PL ATELE T WBC 10.4 x10e3 /uL 3.4-10 .8 Not Available [facility]) [address] [facility], [place], [address], 03/08/2024 09:41:10 03/07/20 24 03/08/2024 CBC WITH DIFFE RENTI AL/PL ATELE T RBC 4.70 x10e6 /uL 4.14-5 .80 Not Available [facility]) [address] [facility], [place], [address], 03/08/2024 09:41:10 03/07/20 24 03/08/2024 CBC WITH DIFFE RENTI AL/PL ATELE T hemoglobin 15.4 g/dL 13.0-1 7.7 Not Available [facility]) [address] [facility], [place], [address], 03/08/2024 09:41:10 03/07/20 24 03/08/2024 CBC WITH DIFFE RENTI AL/PL ATELE T hematocrit 44.5 % 37.5-5 1.0 Not Available [facility]) [address] [facility], [place], [address], 03/08/2024 09:41:10 03/07/20 24 03/08/2024 CBC WITH DIFFE RENTI AL/PL ATELE T MCV 95 fL 79-97 Not Available [facility]) [address] [place], [address], 03/08/2024 09:41:10 03/07/20 24 03/08/2024 CBC WITH DIFFE RENTI AL/PL ATELE T MCH 32.8 pg 26.6-3 3.0 Not Available [facility] [address] [facility], [place], [address], 03/08/2024 09:41:10 03/07/20 24 03/08/2024 CBC WITH DIFFE RENTI AL/PL ATELE T MCHC 34.6 g/dL 31.5-3 5.7 Not Available [facility] [address] [facility], [place], [address], 03/08/2024 09:41:10 03/07/20 24 03/08/2024 CBC WITH DIFFE RENTI AL/PL ATELE T RDW 14.0 % 11.6-1 5.4 Not Available [facility] [address] [facility], [place], [address], 03/08/2024 09:41:10 03/07/20 24 03/08/2024 CBC WITH DIFFE RENTI AL/PL ATELE T platelets 206 x10e3 /uL 150-45 0 Not Available [facility] [address] [facility], [place], [address], 03/08/2024 09:41:10 03/07/20 24 03/08/2024 CBC WITH DIFFE RENTI AL/PL ATELE T neutrophils 67 % not estab. Not Available [facility] [address] [facility], [place], [address], 03/08/2024 09:41:10 03/07/20 24 03/08/2024 CBC WITH DIFFE RENTI AL/PL ATELE T lymphs 22 % not estab. Not Available [facility] [address] [facility], [place], [address], 03/08/2024 09:41:10 03/07/20 24 03/08/2024 CBC WITH DIFFE RENTI AL/PL ATELE T monocytes 6 % not estab. Not Available [facility] [address] [facility], [place], [address], 03/08/2024 09:41:10 03/07/20 24 03/08/2024 CBC WITH DIFFE RENTI AL/PL ATELE T eos 3 % not estab. Not Available [facility] [address] [place], [address], 03/08/2024 09:41:10 03/07/20 24 03/08/2024 CBC WITH DIFFE RENTI AL/PL ATELE T basos 1 % not estab. Not Available [facility] [address] [place], [address], 03/08/2024 09:41:10 03/07/20 24 03/08/2024 CBC WITH DIFFE RENTI AL/PL ATELE T immature cells HELPDESK SPECIALIST Not Available [facility] [address] [place], [address], 03/08/2024 09:41:10 03/07/20 24 03/08/2024 CBC WITH DIFFE RENTI AL/PL ATELE T neutrophils (absolute) 7.0 x10e3 /uL 1.4-7. 0 Not Available [facility] [address] [place], [address], 03/08/2024 09:41:10 03/07/20 24 03/08/2024 CBC WITH DIFFE RENTI AL/PL ATELE T lymphs (absolute) 2.3 x10e3 /uL 0.7-3. 1 Not Available [facility] [address] [place], [address], 03/08/2024 09:41:10 03/07/20 24 03/08/2024 CBC WITH DIFFE RENTI AL/PL ATELE T monocytes(ab solute) 0.6 x10e3 /uL 0.1-0. 9 Not Available [facility] [address] [place], [address], 03/08/2024 09:41:10 03/07/20 24 03/08/2024 CBC WITH DIFFE RENTI AL/PL ATELE T eos (absolute) 0.3 x10e3 /uL 0.0-0. 4 Not Available [facility] [address] [place] [facility], [place], [address], 03/08/2024 09:41:10 03/07/20 24 03/08/2024 CBC WITH DIFFE RENTI AL/PL ATELE T baso (absolute) 0.1 x10e3 /uL 0.0-0. 2 Not Available [facility] [address] [facility], [place], [address], 03/08/2024 09:41:10 03/07/20 24 03/08/2024 CBC WITH DIFFE RENTI AL/PL ATELE T immature granulocytes 1 % not estab. Not Available [facility] [address] [facility], [place], [address], 03/08/2024 09:41:10 03/07/20 24 03/08/2024 CBC WITH DIFFE RENTI AL/PL ATELE T immature grans (abs) 0.1 x10e3 /uL 0.0-0. 1 Not Available [facility] [address] [facility], [place], [address], 03/08/2024 09:41:10 03/07/20 24 03/08/2024 CBC WITH DIFFE RENTI AL/PL ATELE T NRBC HELPDESK SPECIALIST Not Available [facility] [address] [facility], [place], [address], 03/08/2024 09:41:10 03/07/20 24 03/08/2024 CBC WITH DIFFE RENTI AL/PL ATELE T hematology comments: HELPDESK SPECIALIST Not Available [facility] [address] [facility], [place], [address], 03/08/2024 09:41:10 03/07/20 24 03/08/2024 COMP. METAB OLIC PANEL (14) glucose 85 mg/dL 70-99 Not Available [facility] [address] [place], [address], 03/08/2024 09:41:10 03/07/20 24 03/08/2024 COMP. METAB OLIC PANEL (14) BUN 23 mg/dL 6-24 Not Available [facility] [address] [place], [address], 03/08/2024 09:41:10 03/07/20 24 03/08/2024 COMP. METAB OLIC PANEL (14) creatinine 1.21 mg/dL 0.76-1 .27 Not Available [facility] [address] [place], [address], 03/08/2024 09:41:10 03/07/20 24 03/08/2024 COMP. METAB OLIC PANEL (14) BUN/creatini ne ratio 19 9-20 Not Available [facility] [address] [place], [address], 03/08/2024 09:41:10 03/07/20 24 03/08/2024 COMP. METAB OLIC PANEL (14) sodium 141 mmol/ L 134-14 4 Not Available [facility] [address] [place], [address], 03/08/2024 09:41:10 03/07/20 24 03/08/2024 COMP. METAB OLIC PANEL (14) potassium 4.3 mmol/ L 3.5-5. 2 Not Available [facility] [address] [place], [address], 03/08/2024 09:41:10 03/07/20 24 03/08/2024 COMP. METAB OLIC PANEL (14) chloride 103 mmol/ L 96-106 Not Available [facility]) [address] [place], [address], 03/08/2024 09:41:10 03/07/20 24 03/08/2024 COMP. METAB OLIC PANEL (14) carbon dioxide, total 23 mmol/ L 20-29 Not Available [facility] [address] [place], [address], 03/08/2024 09:41:10 03/07/20 24 03/08/2024 COMP. METAB OLIC PANEL (14) calcium 9.5 mg/dL 8.7-10 .2 Not Available [facility] [address] [place], [address], 03/08/2024 09:41:10 03/07/20 24 03/08/2024 COMP. METAB OLIC PANEL (14) protein, total 7.1 g/dL 6.0-8. 5 Not Available [facility] [address] [place], [address], 03/08/2024 09:41:10 03/07/20 24 03/08/2024 COMP. METAB OLIC PANEL (14) albumin 4.7 g/dL 3.8-4. 9 Not Available [facility] [address] [place], [address], 03/08/2024 09:41:10 03/07/20 24 03/08/2024 COMP. METAB OLIC PANEL (14) globulin, total 2.4 g/dL 1.5-4. 5 Not Available [facility] [address] [place], [address], 03/08/2024 09:41:10 03/07/20 24 03/08/2024 COMP. METAB OLIC PANEL (14) bilirubin, total 0.7 mg/dL 0.0-1. 2 Not Available [facility] [address] [place], [address], 03/08/2024 09:41:10 03/07/20 24 03/08/2024 COMP. METAB OLIC PANEL (14) alkaline phosphatase 82 IU/L 44-121 Not Available [facility] [address] [facility] [place], [address], 03/08/2024 09:41:10 03/07/20 24 03/08/2024 COMP. METAB OLIC PANEL (14) AST (SGOT) 41 IU/L 0-40 above high normal Not Available [facility] [address] [facility] [place], [address], 03/08/2024 09:41:10 03/07/20 24 03/08/2024 COMP. METAB OLIC PANEL (14) ALT (SGPT) 52 IU/L 0-44 above high normal Not Available [facility] [address] [facility] [place], [address], 03/08/2024 09:41:10 03/07/20 24 03/08/2024 LIPID PANEL cholesterol, total 138 mg/dL 100-19 9 Not Available [facility] [address] [facility] [place], [address], 03/08/2024 09:41:11 03/07/20 24 03/08/2024 LIPID PANEL triglyceride s 658 mg/dL 0-149 alert high Not Available [facility] [address] [facility] [place], [address], 03/08/2024 09:41:11 03/07/20 24 03/08/2024 LIPID PANEL HDL cholesterol 20 mg/dL >39 below low normal Not Available [facility]) [address] [place], [address], 03/08/2024 09:41:11 03/07/20 24 03/08/2024 LIPID PANEL VLDL cholesterol brooke 89 mg/dL 5-40 above high normal Not Available [facility]) [address] [facility], [place], [address], 03/08/2024 09:41:11 03/07/20 24 03/08/2024 LIPID PANEL LDL chol calc ([facility]) 29 mg/dL 0-99 Not Available [facility] [address] [facility], [place], [address], 03/08/2024 09:41:11 03/07/20 24 03/08/2024 LIPID PANEL LDL calc comment: HELPDESK SPECIALIST Not Available [facility] [address] [facility], [place], [address], 03/08/2024 09:41:11 03/07/20 24 03/08/2024 URIC ACID uric acid 6.3 mg/dL 3.8-8. 4 Thera melanie barry t for gout patie nts: <6.0 Not Available [facility]) [address] [facility], [place], [address], 03/08/2024 09:41:11 09/28/19 24 09/28/2023 LDCT, chest , for lung andreasce r [facility] [address] [place] [address] Phone: Fax: Name: SUKHDEEP KNOWLES Exam Date: 09/28/19 24 : [birth year] 64 Age 58 Gender : M Access ion: [id number] Physic collins: DIYA GOLDBERGi ty: [facility] Akash ty HSV: Outpat ient Exam: CT LOW DOSE LUNG SCREEN ING LOW DOSE SCREEN ING CT SCAN OF THE CHEST WITHOU T CONTRA ST COMPAR OXANA: 11/28/19 22 HISTOR Y: Curren t smoker with a 70-pac k-year histor y. PROCED URE: Axial images were obtain ed from the lung apex to the mid abdome n by comput ed tomogr aphy in a low dose screen ing protoc ol. This study was perfor med with techni ques to keep radiat ion doses as low as reason vandana zarco, (YING ). CTDI: 2.94 mGy. DLP: 123.32 mGy/cm . FINDIN GS: CHEST: There is no axilla ry adenop athy. There is no hilar or medias tinal adenop athy. Heart size is normal . There are multiv essel ragland ry artery calcif icatio ns. There is no perica rdial or pleura l effusi on. Limite d images of the upper abdome n are unrema rkable . Mild emphys ematou s change s are seen throug hout the lungs. There is mild centra l bronch ial wall thicke trice. There is a stable 5 mm right lower lobe nodule on image 76 of series 3. IMPRES TONY: Lung Rads catego ry 2. Contin ued annual low dose screen ing of the chest recomm ended. Films review ed , interp reted and dictat ed by Dr. Jake Garduno . Transc ribed by Chad Box PA-C. Dictat ed By: Donna Lundberg Transc ribed By: Donna Garduno Transc ribed On: 09/28/19 3:44 PM Electr onical ly signed by: Donna Lundberg 09/28/19 Thank you for referr sonny JACOBO Loera SUKHDEEP to [facility]. Legall y authen ticate d by JAKE TRUONG 09-28 15:44: 15 CC'ed Logic: Orderi ng Provid er: AMANDA KEANE CC Provid er: AMANDA Carty ing Provid er: AMANDA Quintero ing Provid er: AMANDA lorenzo [facility] [address], [place], [address], 09/28/2023 18:15:30 Result Notes None recorded. Problems Name Problem SNOMED Code Status Onset Date Resolution Date Notes Provider Name and Address Organization Details Recorded Time Chronic obstructiv e pulmonary disease 28077823 Active Not Available [facility] 3 18:16:37 Coronary arterioscl erosis 44692634 Active Not Available [facility] 3 18:16:37 Chronic pain 21905922 Active Not Available [facility] 3 18:16:37 Insomnia 177524047 Active Not Available [facility] 3 18:16:37 Hypertensi ve disorder 96819091 Active Not Available [facility] 3 18:16:37 Polyp of colon 50700003 Active Not Available [facility] 3 18:16:37 Chronic back pain 366133416 Active 2023 Diya Rosales MD [facility] [address], [address] - [facility] & [place] 4 16:58:05 Tobacco dependence caused by cigarettes 1597824831597 9107 Active 2023 Diya Rosales MD [facility] [address] - [facility] & [place] 4 09:47:56 Hyperlipid emia 00988962 Active 2023 iDya Rosales MD [address] [place] [address] [place] - [facility] & [place] 4 11:45:38 Gout 96807636 Active 2023 MD Marjorie [address] [place] - [facility] & [place] 4 11:45:45 Problem Notes None recorded. Procedures Surgical History Date Name Laterality Status Provider Name and Address Organization Details Recorded Time 06/23/20 21 Total knee arthroplasty completed Evelyne MIGUEL - [facility] & [place] 08/05/2023 08:03:24 04/10/20 18 catheterization of left heart completed Evelyne MIGUEL - [facility] & [place] 08/05/2023 08:07:40 Vasectomy completed Evelyne Rothamer [place] - [facility] - [place] & [place] 08/05/2023 08:00:40 debridement by high pressure irrigation completed Evelyne [place]amer [place] - [facility] - [place] & [place] 08/05/2023 08:01:05 Colonoscopy completed Evelyne Rothamer [place] - [facility] - [place] & [place] 08/05/2023 08:03:11 Ligation of hemorrhoid(s) completed Evelyne [place]amer [place] - [facility] - [place] & [place] 08/05/2023 08:03:59 percutaneous transluminal balloon angioplasty of coarctation of aorta with insertion of stent completed Evelyne [place] - [facility] - [place] & [place] 08/05/2023 08:04:37 procedure completed Evelyne Rothamer [place] - [facility] - [place] & [place] 08/05/2023 08:05:01 cardiac ventriculography completed Evelyne [place] - [facility] - [place] & [place] 08/05/2023 08:05:58 angiography of coronary artery completed Evelnye [place]amer [place] - [facility] - [place] & [place] 08/05/2023 08:06:15 percutaneous coronary intervention completed Evelyne [place]amer [place] - [facility] - [place] & [place] 08/05/2023 08:06:33 placement of stent in anterior descending branch of left coronary artery completed Evelyne Rothamer [place] - [facility] - [place] & [place] 08/05/2023 08:06:53 Imaging Results Imaging Date Name Status LastModified by Organiz ation Details LastModified Time 09/28/2023 LDCT, chest, for lung cancer screening completed [facility] [address], [place], [address], 09/28/2023 18:15:30 Procedure Notes None recorded. Medical Equipment None Reported. Allergies Allergen ID Allergen Name Allergen Category Reaction Reaction Severity Criticality Documentation Date Start Date Code Code System Note Provider Name and Address Organization Details Recorded Time 99578 Product containin g 3-hydroxy -3-methyl glutaryl- coenzyme A reductase inhibitor (product) medicatio n nausea Not available Not available 06/12/2022 33592 009 SNOMED Betty Velásquez [facility], [place] - [facility] - [place] & [place] 2 14:39:17 Medications Name Sig Start Date Stop Date Status Note LastModified by Organization Details LastModified Time Prescriptio n - Renewal 03/07 completed Not Available Not Available Not Available cyclobenzap rine 10 mg tablet TAKE 1 TABLET BY MOUTH EVERY 8 HOURS NEEDED active Not Available Not Available No t Available amoxicillin 500 mg capsule TAKE 1 CAPSULE BY MOUTH EVERY 6 HOURS UNTIL GONE active Not Available Not Available No t Available methocarbam ol 500 mg tablet Take 1 {tablets} 6 times a day by oral route. 09/14 completed Not Available Not Available Not Available carvedilol 25 mg tablet 1 tablet by mouth twice daily 2023 active Not Available Not Available Not Avai lable prednisone 10 mg tablet TAKE 5 TABLETS BY ORAL ROUTE ONCE DAILY FOR DAYS 1-3, THEN TAKE 4 TABLETS DAILY FOR DAYS 4-6, THEN TAKE 3 TABLETS ON DAY 7, THEN TAKE 2 TABLETS DAILY ON DAYS 8-9, THEN 1 TABLET ON DAY 10 09/14 completed Not Available Not Available Not Available nifedipine ER 90 mg tablet,exte nded release TAKE 1 TABLET BY MOUTH ONCE DAILY active Not Available Not Available No t Available hydrochloro thiazide 50 mg tablet TAKE 1 TABLET BY MOUTH IN THE MORNING ONCE DAILY 09/14 completed Not Available Not Available Not Available meloxicam 15 mg tablet TAKE 1 TABLET BY MOUTH ONCE DAILY active Not Available Not Available No t Available valsartan 160 mg-hydrochl orothiazide 12.5 mg tablet TAKE 1 TABLET BY MOUTH ONCE DAILY 09/14 completed Not Available Not Available Not Available clopidogrel 75 mg tablet TAKE 1 TABLET BY MOUTH ONCE DAILY active Not Available Not Available No t Available chlorthalid one 25 mg tablet TAKE 1 TABLET BY MOUTH ONCE DAILY active Not Available Not Available No t Available hydrocodone 10 mg-acetamin ophen 325 mg tablet TAKE 1 TABLET BY MOUTH EVERY 6 HOURS NEEDED active Not Available Not Available No t Available omeprazole 40 mg capsule,del ayed release active OTC Not Available Not Available Not Available oxycodone-a cetaminophe n 5 mg-325 mg tablet TAKE ONE TABLET BY MOUTH EVERY 4 HOURS NEEDED FOR PAIN MAY CAUSE DROWSINES S 09/03 completed Not Available Not Available Not Available potassium chloride ER 20 mEq tablet,exte nded release(par t/cryst) TAKE 1 TABLET BY MOUTH ONCE DAILY 03/07 completed Not Available Not Available Not Available magnesium oxide 400 mg (241.3 mg magnesium) tablet Take by oral route. active OTC Not Available Not Available No t Available trazodone 100 mg tablet TAKE 1 TO 3 TABLETS BY MOUTH AT BEDTIME NEEDED FOR SLEEP 09/03 completed Not Available Not Available Not Available nifedipine ER 90 mg tablet,exte nded release 24 hr TAKE 1 TABLET BY MOUTH ONCE DAILY FOR 30 DAYS 03/07 completed Not Available Not Available Not Available amlodipine 10 mg tablet TAKE 1 TABLET BY MOUTH ONCE DAILY FOR 90 DAYS 09/14 completed Not Available Not Available Not Available doxycycline monohydrate 100 mg capsule TAKE 1 CAPSULE BY MOUTH TWICE DAILY FOR 7 DAYS 09/14 completed Not Available Not Available Not Available allopurinol 300 mg tablet TAKE 1 TABLET BY MOUTH ONCE DAILY active Not Available Not Available No t Available hydrochloro thiazide 25 mg tablet TAKE 1 TABLET BY MOUTH ONCE DAILY FOR 90 DAYS 09/14 completed Not Available Not Available Not Available zolpidem 5 mg tablet TAKE 1 TABLET BY MOUTH ONCE DAILY AT BEDTIME NEEDED FOR SLEEP 09/14 completed Not Available Not Available Not Available methylpredn isolone 4 mg tablets in a dose pack TAKE BY MOUTH DIRECTED ON INSIDE OF PACKAGE 09/03 completed Not Available Not Available Not Available albuterol sulfate HFA 90 mcg/actuati on aerosol inhaler Inhale 2 puffs every 6 hours by inhalatio n route as needed. active Not Available Not Available No t Available lisinopril 40 mg tablet TAKE 1 TABLET BY MOUTH TWICE DAILY 09/14 completed Not Available Not Available Not Available spironolact one 50 mg tablet TAKE 1 TABLET BY MOUTH ONCE DAILY AT BEDTIME 09/03 completed Not Available Not Available Not Available rosuvastati n 40 mg tablet TAKE 1 TABLET BY MOUTH ONCE DAILY 09/03 completed Not Available Not Available Not Available Co Q-10 active Not Available Not Avail able Not Available oxycodone 10 mg tablet TAKE 1 TABLET BY MOUTH 3 OR 4 TIMES DAILY NEEDED FOR SEVERE PAIN 09/14 completed Not Available Not Available Not Available Gavilyte-C 240 gram-22.72 gram-6.72 gram-5.84 gram oral solution USE DIRECTED 09/14 completed Not Available Not Available Not Available GaviLyte-G 236 gram-22.74 gram-6.74 gram-5.86 gram oral solution DRINK 240ML BY MOUTH EVERY 15 MINUTES FOR FIRST HALF OF CONTAINER THEN 6 HOURS PRIOR TO ARRIVAL DRINK OTHER HALF OF CONTAINER UNTIL GONE 09/14 completed Not Available Not Available Not Available Edarbi 80 mg tablet TAKE 1 TABLET BY MOUTH ONCE DAILY 09/03 completed Not Available Not Available Not Available Edarbi 40 mg tablet TAKE 1/2 (ONE-HALF ) TABLET BY MOUTH ONCE DAILY active Not Available Not Available No t Available potassium chloride ER 20 mEq tablet,exte nded release TAKE 1 TABLET BY MOUTH ONCE DAILY WITH FOOD active Not Available Not Available No t Available Nexlizet 180 mg-10 mg tablet TAKE 1 TABLET BY MOUTH ONCE DAILY active Not Available Not Available No t Available Wegovy 0.25 mg/0.5 mL subcutaneou s pen injector INJECT 1 SYRINGE SUBCUTANE OUSLY ONCE A WEEK active Not Available Not Available No t Available Vitals Date Recorded Body weight Body mass index (BMI) Body height Body temperature Heart rate Systolic blood pressure Diastolic blood pressure Provider Name and Address Organization Details Last Updated DateTime 3 215349. 9 g 37.3 kg/m2 182.88 cm 95.5 [degF] 72 /min 121 mm[Hg] 85 mm[Hg] Jenny Bucknerfredyiliana MIGUEL [facility] & [place] 3 10:12:20 Date Recorded Body height Body mass index (BMI) Body weight Heart rate Systolic blood pressure Diastolic blood pressure Provider Name and Address Organization Details Last Updated DateTime 4 182.88 cm 34.2 kg/m2 100631. 68 g 73 /min 167 mm[Hg] 93 mm[Hg] Teresa MIGUEL - [facility] & [place] 4 16:31:37 Date Recorded Body height Body mass index (BMI) Body weight Heart rate Systolic blood pressure Diastolic blood pressure Provider Name and Address Organization Details Last Updated DateTime 4 182.88 cm 35.1 kg/m2 018289. 42 g 86 /min 150 mm[Hg] 92 mm[Hg] Teresa MIGUEL - [facility] & [place] 11:24:45 Social History Question Answer Notes LastModified by Organizat ion Details LastModified Time Tobacco Smoking Status Current Every Day Smoker Jenny mcnulty, [place] [facility] & [place] 09/14/2022 10:10:36 Do You Have An Advance Directive? No Information not available 03/01/2024 What Is Your Level Of Alcohol Consumption? None Information not available 09/14/2022 Do You Wear A Helmet When Biking? Yes Information not available 09/14/2022 Are You Blind Or Do You Have Difficulty Seeing? No Information not available 09/14/2022 Is Blood Transfusion Acceptable In An Emergency? Yes Information not available 03/07/2024 What Is Your Level Of Caffeine Consumption? Occasional Information not available 09/14/2022 In The 14 Days Before Symptom Onset, Have You Had Close Contact With A Laboratory-confir med COVID-19 While That Case Was Ill? No Information not available 09/14/2022 In The 14 Days Before Symptom Onset, Have You Had Close Contact With A Person Who Is Under Investigation For COVID-19 While That Person Was Ill? No Information not available 09/14/2022 Have You Been To An Area Known To Be High Risk For COVID-19? No Information not available 09/14/2022 Are You Currently Employed? No Information not available 03/07/2024 Are You Deaf Or Do You Have Serious Difficulty Hearing? No Information not available 09/14/2022 What Type Of Diet Are You Following? REGULAR Information not available 03/07/2024 Which Illicit Or Recreational Drugs Have You Used? Marijuana Information not available 03/07/2024 Have You Processed Blood Or Body Fluids From An Ebola Virus Disease Patient Without Appropriate PPE? No Information not available 09/14/2022 Do You Reside In Or Have You Traveled To An Area Where Ebola Virus Transmission Is Active? No Information not available 09/14/2022 How Many Days Of Moderate To Strenuous Exercise, Like A Brisk Walk, Did You Do In The Last 7 Days? 7 Information not available 03/07/2024 On Those Days That You Engage In Moderate To Strenuous Exercise, How Many Minutes, On Average, Do You Exercise? 60 Information not available 03/07/2024 Have There Been Any Changes To Your Family Or Social Situation? Yes Step Son Moved In With Them He Is In A Wheel Chair Information not available 09/14/2022 What Is The Fluoride Status Of Your Home? Fluoridated Information not available 09/14/2022 Are There Any Guns Present In Your Home? Yes Information not available 03/07/2024 Have You Recently Or Are You Planning To Travel To An Area With Zika Virus? No Information not available 09/14/2022 How Many Years Have You Used Illicit Or Recreational Drugs? 46 Information not available 03/07/2024 Do You Use Insect Repellent Routinely? Yes Information not available 03/07/2024 Do You Feel Safe At Home? Yes Information not available 03/07/2024 Do You Have A Medical Power Of Hydraulic Billet Maker? No Information not available 03/07/2024 What Was The Date Of Your Most Recent Tobacco Screening? 08/31/2023 Information not available 03/01/2024 How Many Children Do You Have? 3 Information not available 03/07/2024 What Is Your Current Pack Years? [email or web address] rs Information not available 09/14/2022 Do You Have Any Pets? Yes Information not available 03/07/2024 Do You Use Protection During Sex? No Information not available 03/07/2024 Do You Use Protection Against STDs? No Information not available 03/07/2024 What Is Your Relationship Status? Information not available 03/07/2024 Do You Use Your Seat Belt Or Car Seat Routinely? Yes Information not available 09/14/2022 Are You Sexually Active? Yes Information not available 03/07/2024 Do You Have Smoke And Carbon Monoxide Detectors In Your Home? Yes Information not available 09/14/2022 At What Age Did You Start Smoking Tobacco? 11 Information not available 09/14/2022 Are You Passively Exposed To Smoke? Yes Information no t available 03/01/2024 How Much Tobacco Do You Smoke? 2 PPD Information not available 03/01/2024 Do You Feel Stressed (tense, Restless, Nervous, Or Anxious, Or Unable To Sleep At Night)? [id number] Information not available 03/01/2024 Do You Use Any Illicit Or Recreational Drugs? Yes Information not available 03/01/2024 Do You Use Sunscreen Routinely? Yes Information not available 03/07/2024 Has Tobacco Cessation Counseling Been Provided? No Information not available 09/14/2022 How Many Years Have You Smoked Tobacco? 45 Information not available 09/14/2022 Have You Used IV Drugs? No Information not available 03/07/2024 Are You Currently In School? No Information not available 03/07/2024 What Contraceptive Method Was Reported At Start Of This Visit? None Information not available 03/07/2024 What Contraceptive Method Was Reported At End Of This Visit? None Information not available 03/07/2024 Do You Or Have You Ever Used Any Other Forms Of Tobacco Or Nicotine? No Information not available 09/14/2022 Do You Want To Talk About Contraception Or Prevention During Your Visit Today? No - This Question Does Not Apply To Me/I Prefer Not To Answer Information not available 03/07/2024 What Is Your Reason For Having No Contraceptive Method At Start Of This Visit? Same Sex Partner Information not available 03/07/2024 What Is Your Reason For Having No Contraceptive Method At End Of This Visit? Same Sex Partner Information not available 03/07/2024 Sex: Male Functional Status Question Answer Note LastModified by Organizat ion Details LastModified Time Do you have difficulty walking or climbing stairs? No Information not available 09/14/2022 Do you have transportation difficulties? No Information not available 09/14/2022 Are you able to walk? YESWOREST Information not available 09/14/2022 Do you have difficulty doing errands alone? No Information not available 09/14/2022 Are you able to care for yourself? Yes Information not available 09/14/2022 Do you have difficulty dressing or bathing? No Information not available 09/14/2022 What is your exercise level? Moderate Information not available 03/01/2024 Mental Status Question Answer Note LastModified by Organization D etails LastModified Time Do you have difficulty concentrating, remembering or making decisions? No Information no t available 09/14/2022 Family History Relationship Description Onset Age of this Age Resolved Age Notes LastModified by Organization Details LastModified Time Father Heart disease [email or web address] Not available 2022 07:55:02 Mother Heart disease [email or web address] Not available 2022 07:55:02 Brother Heart disease [email or web address] Not available 2022 07:55:02 Unspecified Relation Diabetes mellitus [email or web address] Not available 02/20 10:27:45 Unspecified Relation Hyperlipidem ia [email or web address] Not available 02/20 10:27:45 Unspecified Relation Hypertensive disorder [email or web address] Not available 2023 09:46:43 Unspecified Relation Gout [email or web address] Not available 03/07 10:27:45 Medical History Condition Response Coronary Artery Disease Y None N Gout Y Kidney Stones N Hyperthyroidism N Hypothyroidism N Depression N COPD Y Anemia N Difficulty Swallowing N MRSA exposure N Heart Attack ([place]) Y Anxiety Disorder N Meniere's disease N Diabetes N Obesity Y Arthritis Y Mental Disorder N Tuberculosis N AIDS/HIV N Congestive Heart Failure (CHF) N Cancer Y Stroke N Diverticulitis Y Asthma N Reflux/GERD Y Jaundice N High Cholesterol Y Liver Disease N Heart Disease Y Pulmonary Embolism N Fibromyalgia N Hypertension Y Chronic Ear Infections N Osteoporosis N Kidney Disease N Immunizations Vaccine Type Date Status Provider Name and Address Organization Details Recorded Time Tdap 09/03/2023 completed Diya Rosales MD [address], [place], [address], [facility] & [place] 09/06/2023 12:07:42 COVID-19, mRNA, LNP-S, PF, 100 mcg/0.5mL dose or 50 mcg/0.25mL dose 12/26/2020 completed Evelyne Rothamer null, [place] - [facility] - [place] & [place] 08/05/2023 07:52:51 COVID-19, mRNA, LNP-S, PF, 100 mcg/0.5mL dose or 50 mcg/0.25mL dose 01/23/2021 completed Evelyne Rothamer null, [place] - [facility] - [place] & [place] 08/05/2023 07:52:51 COVID-19, mRNA, LNP-S, PF, 100 mcg/0.5mL dose or 50 mcg/0.25mL dose 08/01/2021 completed Eevlyne Umaamer null, [place] - [facility] - [place] & [place] 08/05/2023 07:52:51 Past Encounters Encounter ID Performer Location Encounter Start Date Encounter Closed Date Diagnosis/Indication Diagnosis SNOMED-CT Code Diagnosis ICD10 Code [id number] MD [facility] [facility] [address] [place] [address] 09/14/2022 10:02:59 09/14/2022 11:49:15 Hypertensive disorder 10407618 I10 Chronic ob structive pulmonary disease 37188062 J44.9 Coronary arteriosclerosis 56807192 I25.10 Shoulder pain 68836075 M 25.519 Adult heal th examination 107997572 Z00.00 [id number] MD [facility] [address] [place] [address] 09/03/2023 16:06:53 09/03/2023 17:10:49 Gout 87025828 M10.9 Adult heal th examination 739565210 Z00.00 Active immunization 3387 9002 Z23 Chronic back pain 555756 002 M54.9 Tobacco de pendence caused by cigarettes 6073037102 8814663 F17.078 [id number] MD [facility] [place] [address] [place] [address] 03/07/2024 10:27:29 03/07/2024 11:53:47 Chronic pain 76344022 G89.29 Chronic back pain 622922 002 M54.9 Hypertensive disorder 38 494694 I10 Coronary arteriosclerosis 38603990 I25.10 Hyperlipidemia 72249816 E78.5 Gout 65310998 M10.9 Health Concerns Section Related Observation LastModified by Organization Detai ls LastModified Time None Recorded Concern Status LastModified by Organization Details LastModified Time None Recorded Advance Directives Directive N: Payers Encounter Date Sequence Insurance Name Policy Number Policy Rogers Covered Member ID Rogers Member ID Guarantor Name 09/14/2022 1 [place] Sukhdeep Hall [id number] Sukhdeep Hall 09/14/2022 2 [facility] (MEDICAID HMO) Sukhdeep Hall [id number] Sukhdeep Hall 09/03/2023 1 [employer] (MEDICARE REPLACEMENT/ ADVANTAGE - PPO) Sukhdeep Hall [id number] Sukhdeep Hall 03/07/2024 1 [employer] (MEDICARE REPLACEMENT/ ADVANTAGE - PPO) Sukhdeep Hall [id number] Sukhdeep Hall Notes Date Note Type Note Provider Name and Address Organization Details Recorded Time 09/14/2022 text/html Here for annual check-up.States he had colonoscopy this past year and was negative. Repeat in 5 years.Had [place] in 2018 and had stent placed in RCA. Saw cardiology since last visit here and had stress test which was clear. Will be following up every 6 months. Will be having labs checked for cardiology in September and plans to have lab results sent here.Needs refill on Albuterol inhaler which he uses on as needed basis.Has degenerative problems of both shoulders. Also having alot of pain and discomfort in right elbow as well. Requesting cortisone injections if possible. Diya Rosales MD [address], [place], [address], [place] - [facility] - [place] & [place] 09/14/2022 21:38:32 09/03/2023 text/html Here for annual check-up. Was last seen a year ago.States he has been to the chiropractor several times in the past 3 weeks for his back pain. Has multiple herniated discs which act up. Has been having increased pain recently. OTC medicines not helping.States he had colonoscopy about 2 years ago and was negative. Repeat in 5 years.Had [place] in 2018 and had stent placed in RCA. Continues to follow with cardiology since last visit here. Was put back on Edarbi for elevated blood pressure. Says his BP has been running higher since his back started bothering him more. States he last had labs done with cardiology in May. Had been put on a statin and had cholesterol levels looking good. Says he had side effects of memory loss on the statin so he stopped it.Interested in a pertussis vaccination as he will be having a grandbaby born soon.Is needing refills on the Allopurinol today for his gout. Has not had any recent attacks.Continues smoking. Has been smoking 2 ppd for at least 35 years. Diya Rosales MD [address], [place], [address], [facility] & [place] 09/06/2023 12:08:50 03/07/2024 text/html Here for medicin e follow-up today. Only had orange juice this morning but has not ate anything yet.Has been following with cardiology. Continues on the BP and lipid medications. Was started on Wegovy to help with weight loss. However, he has only been able to do 9 doses over 4 months time due to shortages.States his LDL was 115 at last check.Had [place] in 2018 and had stent placed in RCA. Continues to follow with cardiology since last visit here. Was put back on Edarbi for elevated blood pressure. Says his BP has been running higher since his back started bothering him more. States he last had labs done with cardiology in May. Had been put on a statin and had cholesterol levels looking good. Says he had side effects of memory loss on the statin so he stopped it. Diya Rosales MD [address], [place], [address], [facility] & [place] 03/09/2024 11:06:36
--- OUTSIDE RECORDS SUMMARY | 2024-07-10 08:33 | XMS_ITS | Encounter Summary ---
[facility] Address [address] [place] [address] Care Team Providers Care Crystal Machining Coordinator Name Role Phone Garrett Pulido MD Primary Care Provider [phone] Encounter Details Date Type Department Care Team (Late st Contact Info) Description 04/02/2018 Readmission Management [facility] [address] [place] [id number] Juliana Coates RN Social History Tobacco Use Types Packs/Day [...] encounter Miscellaneous Notes * Outreach Note - Juliana Coates RN - 04/02/2018 12:18 AM EDT Prep Survey Responses Facility patient discharged from? [facility] Is patient eligible? Yes Discharge diagnosis ???STEMI involving right coronary artery (CMS/HCC) I21 Does the patient have one of the following disease processes/diagnoses(primary or secondary)? AcuteMI (STEMI,NSTEMI) Does the patient have Home health ordered? No Is there a DME ordered? No Prep survey completed? Yes Juliana Coates RN documented in this encounter Plan of Treatment Not on file documented as of this encounter Visit Diagnoses Not on filedocumented in this encounter Care Teams Crystal Machining Coordinator Relationship Specialty Start Date End Date Garrett Pulido MD [address] [facility] [address] [facility] [address] [place] [id number] PCP - General Internal Medicine 03/31/18 documented as of this encounter
--- OUTSIDE RECORDS SUMMARY | 2024-07-10 08:33 | XMS_ITS | Encounter Summary ---
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 Name Role Phone Garrett Pulido MD Primary Care Provider [phone] Reason for Referral * (Routine) - Closed Specialty Diagnoses / Procedures Referred By Contac t Referred To Contact Radiology Procedures XR Chest PA & Lateral Dashawn Escobar MD [address] [place] [address] Phone: tel: fax: Referral ID Status Reason Start Date Expiration Date Visits Re quested Visits Authorized [id number] Closed 06/13/2021 06/13/2022 1 1 Encounter Details Date Type Department Care Team (Late st Contact Info) Description 06/13/2021 1:30 PM EDT Pre-Admission Testing [facility] PREADMISSION T [address] [place] [id number] Social History Tobacco Use Types Packs/Day [...] Sign Reading Time Taken Comments Blood Pressure - - Pulse - - Temperature - - Respiratory Rate - - Oxygen Saturation - - Inhaled Oxygen Concentration - - Weight 119 kg (262 lb 5.6 oz) 06/13/2021 2:37 PM EDT Height 182.9 cm (6') 06/13/2021 2:37 PM EDT Body Mass Index 35.58 06/13/2021 2:37 PM EDT documented in this encounter OR Notes * OLVIN - Carmella Rodgers RN - 06/13/2021 1:30 PM EDT An arrival time for procedure was not given during PAT visit. If patient had any questions or concerns about their arrival time, they were instructed to contact their surgeon/physician. Additionally,if the patient referred to an arrival time that was acquired from their my chart account, patient was encouraged to verify that time with their surgeon/physician. NO arrival times given in Pre Admission Testing Department. Patient instructed to drink 20 ounces (or until full) of Gatorade and it needs to be completed 1 hour (for Main OR patients) or 2 hours (scheduled section patients) before given arrival timefor procedure (NO RED Gatorade) Patient verbalized understanding. Patient to apply Chlorhexadine wipes to surgical area (as instructed) the night before procedure and the AM of procedure. Wipes provided. Clean catch urinalysis not indicated because patient denied recent urinary frequency, urinary urgency, burning or pain upon urination, or flank pain. No recent UTIs. Per Anesthesia Request, patient instructed not to take their BENSON/ARB medications on the AM of surgery. Patient directed to Radiology Department for CXR after Pre Admission Testing Appointment. Discussed with patient options for receiving total joint replacement education and assessed patient's ability and preference. Joint Replacement Guide given to patient during PAT visit since not received a copy within the last year. Encouraged patient/family to read guide thoroughly and notify PAT staff with any questions or concerns. Handout provided directing patient to links to watch online videos related to joint replacement surgery on the [facility] website. The handout gives detailed instructions for joining an online joint replacement class through Zoom or phone conference offered on . Patient agreed to participate by watching videos online. Patient verbalized understandin g of instructions and to complete the online learning tool survey. Encouraged to share information with family and/or assistant wrestling coach. An overview of the joint replacement education was provided during the visit including general perioperative instructions that are routine for all surgical patients (PAT PASS, wipes, directions to pre-op, etc.). Patient viewed general PAT education video as instructed in their preoperative information receivedfrom their surgeon. Patient stated the general PAT education video was viewed in its entirety and survey completed. Copies of PAT general education handouts (Incentive Spirometry, Meds to Beds Program, Patient Belongings, Pre-op skin preparation instructions, Blood Glucose testing, Visitor policy, Surgery FAQ, Code H) distributed to patient if not printed. Education related to the PAT pass and skin preparation for surgery (if applicable) completed in PAT as a reinforcement to PAT education video. Patient instructed to return PAT pass provided today as well as completed skin preparation sheet ( if applicable) on the day of procedure. Additionally if patient had not viewed video yet but intended to view it at home or in our waiting area, then referred them to the handout with QR code/link provided during PAT visit. Instructed patient to complete survey after viewing the video in its entirety. Encouraged patient/family to read PAT general education handouts thoroughly and notify PAT staff with any questions or concerns. Patientverbalized understanding of all information and priority content. Too early to draw type and screen in PAT. Please obtain specimen in pre-op on the day of surgery. EKG ON CHART FROM 12/28/20 CARDIAC CLEARANCE ON CHART FROM 03/26/[address] LOMBARDO. REQUESTED A PLAVIX STATEMENT FROM DR. LOMBARDO OFFICE. PT WILL NEED TO BE CALLED WITH INSTRUCTIONS ONCE RECEIVED. * PAT - Jenny Aclala RN - 06/13/2021 1:30 PM EDT Clearance letter with plavix statement received and placed on chart. Chart to preop. documented in this encounter Plan of Treatment Not on file documented as of this encounter Procedures Procedure Name Priority Date/Time Associated Diagnosis Comments XR CHEST PA AND LATERAL Routine 06/13/2021 3:08 PM EDT CBC WITH AUTO DIFFERENTIAL Routine 06/13/2021 1:53 PM EDT ABO/RH Routine 06/13/2021 1:53 PM EDT APTT Routine 06/13/2021 1:53 PM EDT SEDIMENTATION RATE Routine 06/13/2021 1: 53 PM EDT PROTIME-INR Routine 06/13/2021 1:53 PM EDT CBC AND DIFFERENTIAL Routine 06/13/2021 1:53 PM EDT ANTIBODY SCREEN Routine 06/13/2021 1:53 PM EDT C-REACTIVE PROTEIN Routine 06/13/2021 1: 53 PM EDT HEMOGLOBIN A1C Routine 06/13/2021 1:53 PM EDT COMPREHENSIVE METABOLIC PANEL Routine 06/13/2021 1:53 PM EDT SCANNED EKG 06/13/2021 documented in this encounter Results * XR [...] 5:[address] Suri Santos MD. us Dashawn Escobar MD IMG DIAGNOSTIC IMAGING ORDERABL ES Final Result * (ABNORMAL) CBC Auto Differential (06/13/2021 1:53 PM EDT) WBC 10.48 3.40 - 10.80 10*3/mm3 06/13/2021 2:26 PM EDT [facility] RBC 5.52 4.14 - 5.80 10*6/mm3 06/13/2021 2:26 PM EDT [facility] Hemoglobin 17.4 13.0 - 17.7 g/dL 06/13/2021 2:26 PM EDT [facility] Hematocrit 50.6 37.5 - 51.0 % 06/13/2021 2:26 PM EDT [facility] MCV 91.7 79.0 - 97.0 fL 06/13/2021 2:26 PM EDT [facility] MCH 31.5 26.6 - 33.0 pg 06/13/2021 2:26 PM EDT [facility] MCHC 34.4 31.5 - 35.7 g/dL 06/13/2021 2:26 PM EDT [facility] RDW 12.7 12.3 - 15.4 % 06/13/2021 2:26 PM EDT [facility] RDW-SD 42.7 37.0 - 54.0 fl 06/13/2021 2:26 PM EDT [facility] MPV 10.1 6.0 - 12.0 fL 06/13/2021 2: PM EDT [facility] Platelets 211 140 - 450 10*3/mm3 06/13/2021 2: PM EDT [facility] Neutrophil % 66.6 42.7 - 76.0 % 06/13/2021 2: PM EDT [facility] Lymphocyte % 22.4 19.6 - 45.3 % 06/13/2021 2: PM EDT [facility] Monocyte % 6.9 5.0 - 12.0 % 06/13/2021 2: PM EDT [facility] Eosinophil % 2.8 0.3 - 6.2 % 06/13/2021 2: PM EDT [facility] Basophil % 0.5 0.0 - 1.5 % 06/13/2021 2: PM EDT [facility] Immature Grans % 0.8(H) 0.0 - 0.5 % 06/13/2021 2: PM EDT [facility] Neutrophils, Absolute 6.99 1.70 - 7.00 10*3/mm3 06/13/2021 2: PM EDT [facility] Lymphocytes, Absolute 2.35 0.70 - 3.10 10*3/mm3 06/13/2021 2:26 PM EDT [facility] Monocytes, Absolute 0.72 0.10 - 0.90 10*3/mm3 06/13/2021 2: PM EDT [facility] Eosinophils, Absolute 0.29 0.00 - 0.40 10*3/mm3 06/13/2021 2:26 PM EDT [facility] Basophils, Absolute 0.05 0.00 - 0.20 10*3/mm3 06/13/2021 2:26 PM EDT [facility] Immature Grans, Absolute 0.08(H) 0.00 - 0.05 10*3/mm3 06/13/2021 2:26 PM EDT [facility] nRBC 0.0 0.0 - 0.2 /100 WBC 06/13/2021 2:26 PM EDT [facility] Blood Venipuncture / Unknown 06/13/2021 1:53 PM EDT 06/13/2021 2:22 PM EDT Dashawn Escobar MD LAB BLOOD ORDERABLES Final Resu lt Performing Organization Address City/[facility]/ZIP Co de Phone Number [facility]
[address] [place] [address], * Antibody Screen (06/13/2021 1:53 PM EDT) Antibody Screen Negative 06/16/2021 1:01 PM EDT [facility] Blood Venipuncture / Unknown 06/13/2021 1:53 PM EDT 06/13/2021 2:30 PM EDT Dashawn Escobar MD BLOOD BANK TEST ORDERABLES Fabiola l Result Performing Organization Address [facility] Co de Phone Number [facility]
[address] [place] [address], * ABO / Rh (06/13/2021 1:53 PM EDT) ABO Type O 06/16/2021 12:40 PM EDT [facility] RH type Positive 06/16/2021 12:40 PM EDT [facility] Blood Venipuncture / Unknown 06/13/2021 1:53 PM EDT 06/13/2021 2:30 PM EDT us Dashawn Escobar MD BLOOD BANK TEST ORDERABLES Fabiola l Result Performing Organization Address City/[facility]/ZIP Co de Phone Number [facility]
[address] [place] [address], * C-Reactive Protein (06/13/2021 1:53 PM EDT) Pathologist [facility] C-Reactive Protein <0.30 0.00 - 0.50 mg/dL 06/13/2021 2:48 PM EDT [facility] Blood Venipuncture / Unknown 06/13/2021 1:53 PM EDT 06/13/2021 2:22 PM EDT Dashawn Escobar MD LAB BLOOD ORDERABLES Final Resu lt Performing Organization Address City/[facility]/ZIP Co de Phone Number [facility]
[address] [place] [address], * (ABNORMAL) Sedimentation Rate (06/13/2021 1:53 PM EDT) Pathologist [facility] Sed Rate 28(H) 0 - 20 mm/hr 06/13/2021 2:40 PM EDT [facility] Blood Venipuncture / Unknown 06/13/2021 1:53 PM EDT 06/13/2021 2:22 PM EDT Dashawn Escobar MD LAB BLOOD ORDERABLES Final Resu lt [facility]
[address] [place] [address], * Protime-INR (06/13/2021 1:53 PM EDT) Pathologist [facility] Protime 11.5 11.4 - 14.4 Seconds 06/13/2021 2:38 PM EDT [facility] INR 0.86 0.85 - 1.16 06/13/2021 2:38 PM EDT [facility] Blood Venipuncture / Unknown 06/13/2021 1:53 PM EDT 06/13/2021 2:22 PM EDT Dashawn Escobar MD LAB BLOOD ORDERABLES Final Resu lt Performing Organization Address [facility] Co de Phone Number [facility]
[address] [place] [address], * aPTT (06/13/2021 1:53 PM EDT) PTT 34.9 22.0 - 39.0 seconds 06/13/2021 2:38 PM EDT [facility] Blood Venipuncture / Unknown 06/13/2021 1:53 PM EDT 06/13/2021 2:22 PM EDT Narrative [facility] - 06/13/2021 2:38 PM EDT PTT = The equivalent PTT values for the therapeutic range of heparin levels at 0.3 to 0.5 U/ml are 55 to 70 seconds. us Dashawn Escobar MD LAB BLOOD ORDERABLES Final Resu lt Performing Organization Address [facility] Co de Phone Number [facility]
[address] [place] [address], * (ABNORMAL) Comprehensive Metabolic Panel (06/13/2021 1:53 PM EDT) Glucose 101(H) 65 - 99 mg/dL 06/13/2021 2:56 PM EDT [facility] BUN 9 6 - 20 mg/dL 06/13/2021 2:56 PM EDT [facility] Creatinine 0.57(L) 0.76 - 1.27 mg/dL 06/13/2021 2:56 PM EDT [facility] Sodium 139 136 - 145 mmol/L 06/13/2021 2:56 PM EDT [facility] Potassium 3.6 3.5 - 5.2 mmol/L 06/13/2021 2:56 PM EDT [facility] Comment:Slight hemolysis det ected by analyzer. Results may be affected. Chloride 102 98 - 107 mmol/L 06/13/2021 2:56 PM EDT [facility] CO2 26.0 22.0 - 29.0 mmol/L 06/13/2021 2:56 PM EDT [facility] Calcium 8.5(L) 8.6 - 10.5 mg/dL 06/13/2021 2:56 PM EDT [facility] Total Protein 5.6(L) 6.0 - 8.5 g/dL 06/13/2021 2:56 PM EDT [facility] Albumin 3.40(L) 3.50 - 5.20 g/dL 06/13/2021 2:56 PM EDT [facility] ALT (SGPT) 23 1 - 41 U/L 06/13/2021 2:56 PM EDT [facility] AST (SGOT) 21 1 - 40 U/L 06/13/2021 2:56 PM EDT [facility] Alkaline Phosphatase 99 39 - 117 U/L 06/13/2021 2:56 PM EDT [facility] Total Bilirubin 0.5 0.0 - 1.2 mg/dL 06/13/2021 2:56 PM EDT [facility] eGFR Non Amer 148 >60 mL/min/1.7 3 06/13/2021 2:56 PM EDT [facility] Globulin 2.2 gm/dL 06/13/2021 2:56 PM EDT [facility] A/G Ratio 1.5 g/dL 06/13/2021 2:56 PM T [facility] BUN/Creatinine Ratio 15.8 7.0 - 25.0 06/13/2021 2:56 PM T [facility] Anion Gap 11.0 5.0 - 15.0 mmol/L 06/13/2021 2:56 PM T [facility] Blood Venipuncture / Unknown 06/13/2021 1:53 PM EDT 06/13/2021 2:22 PM EDT Narrative [facility] - 06/13/2021 2:56 PM EDT GFR Normal >60 Chronic Kidney Disease <60 Kidney Failure <15 Dashawn Escobar MD LAB BLOOD ORDERABLES Final Resu lt Performing Organization Address [facility] Co de Phone Number [facility]
[address] [place] [address], * (ABNORMAL) Hemoglobin A1c (06/13/2021 1:53 PM EDT) Hemoglobin A1C 5.70(H) 4.80 - 5.60 % 06/13/2021 3:00 PM EDT [facility] Blood Venipuncture / Unknown 06/13/2021 1:53 PM EDT 06/13/2021 2:22 PM EDT [facility] - 06/13/2021 3:00 PM EDT Hemoglobin A1C Ranges: Increased Risk for Diabetes ??5.7% to 6.4% Diabetes ? >= 6.5% Diabetic Goal ?< 7.0% Dashawn Escobar MD LAB BLOOD ORDERABLES Final Resu lt Performing Organization Address [facility] de Phone Number [facility]
[address] [place] [address], * SCANNED EKG (06/13/2021) [facility] Onbase ECG ORDERABLES Final Result documented in this encounter Visit Diagnoses Not on filedocumented in this encounter Care Teams Boiler Repairman Relationship Specialty Start Date End Date Garrett Pulido MD [address] [facility] [address] [place] [address] PCP - General Internal Medicine 03/31/18 documented as of this encounter
--- OUTSIDE RECORDS SUMMARY | 2024-07-10 08:33 | XMS_ITS | Encounter Summary ---
[facility] Address [address] [place] [address] Care Team Providers Care Granulating Machine Operator Name Role Phone Garrett Montenegro MD Primary Care Provider [phone] Reason for Visit * Auth/Cert Specialty Diagnoses / Procedures Referred By Contac t Referred To Contact Diagnoses STEMI involving right coronary artery STEMI Procedures Left Heart Cath Referral ID Status Reason Start Date Expiration Date Visits Re quested Visits Authorized [id number] 1 1 Encounter Details Date Type Department Care Team (Late st Contact Info) Description 03/31/2018 8:20 AM EDT - 03/31/2018 9:20 AM EDT Surgery [facility] [address] [place] [address] Harrison Jett MD [address] [facility] [address] [place] [address] Left Heart Cath Social History Tobacco Use Types Packs/Day Years [...] Sign Reading Time Taken Comments Blood Pressure 133/91 03/31/2018 9:15 AM EDT Pulse 65 03/31/2018 9:15 AM EDT Temperature 36.4 ??C (97.5 ??F) 03/31/2018 9:03 AM ED T Respiratory Rate 18 03/31/2018 9:15 AM EDT Oxygen Saturation 96% 03/31/2018 9:15 AM EDT Inhaled Oxygen Concentration - - Weight 116 kg (255 lb 11.7 oz) 03/31/2018 9:15 A M EDT Height 182.9 cm (6') 03/31/2018 9:15 AM EDT Body Mass Index 34.68 03/31/2018 9:15 AM EDT documented in this encounter Discharge Summaries * Harrison Jett MD - 04/01/2018 8:45 AM EDT Sukhdeep Hall [id number] Date of Admit: 03/31/2018 Date of Discharge: 04/01/2018 Discharge Diagnosis: Active Hospital Problems Diagnosis Date Noted ??? STEMI involving right coronary artery ([facility]) [I21.11] 03/31/2018 Resolved Hospital Problems Diagnosis Date Noted Date Resolved No resolved problems to display. Hospital Course: This is a gentleman who traveled to [place] for work, got sick during a meetingwith chest discomfort. Was diagnosed with an acute inferior STEMI. Actually by the time he arrived to the hospital, his ST elevation had resolved, although he still had ongoing symptoms. We took him directly to the terrazzo laborer and he had a 90% mid RCA [...] him to follow up with a local bioinformatics programmer in about 10 days. I told him [...] Provider: Needs to get involved with a bioinformatics programmer locally within the next 10 days, no driving for at least 10 days should arrange for rehabilitation locally As directed To: Needs to get involved with a bioinformatics programmer locally within the next 10 days, no [...] 04/01/2018 8:55 AM EDT Follow up with bioinformatics programmer locally within 10 days Arrange for cardiac rehabilitation locally YOU HAVE AN APPOINTMENT WITH DR. GARRETT MONTENEGRO, [address] [place] [address], [address], [place] April 06 at 10:40 AM. If you need to reschedule this appointment call [phone]. * Attachments The following attachments cannot be sent through Care Everywhere. * Aspirin capsules or tablets extended release ([place]) * Atorvastatin tablets ([place]) * Prasugrel oral tablets ([place]) * Heart Attack ([place]) * Exercise Guidelines During Cardiac Rehabilitation ([place]) * Carotid Angioplasty With Stent Care After ([place]) * Carotid Angioplasty With Stent ([place]) * Heart-Healthy Eating Plan ([place]) * Steps to Quit Smoking ([place]) * Coping with Quitting Smoking ([place]) * [facility] STEPS TO QUIT SMOKING documented in [...] of this encounter Progress Notes * Anna Billings, NATHAN - 04/01/2018 11:41 AM EDT Continued Stay Note [facility] Patient Name: Sukhdeep Hall Today's Date: 04/04/2018 Admit Date: 03/31/2018 Discharge Plan Row Name 04/04/18 1326 Plan Final Discharge Disposition Code 01 - home or self-care Discharge Codes No documentation. Expected Discharge Date and Time Expected Discharge Date Expected Discharge Time Apr 01, 2018 Anna Billings RN * Anna Billings RN - 04/01/2018 10:45 AM EDT Continued Stay Note [facility] Patient Name: Sukhdeep Hall Today's Date: 04/01/2018 [...] states that shefilemon follow up with the bioinformatics programmer to get written prescriptions for pt to take to his pharmacy. Pt has no other identified dc needs. Discharge Codes No documentation. Expected Discharge Date and Time Expected Discharge Date Expected Discharge Time Apr 01, 2018 Anna Billings RN * Anna Billings RN - 04/01/2018 9:42 AM EDT Continued Stay Note [facility] Patient Name: Sukhdeep Hall Today's Date: 04/01/2018 [...] states that shefilemon follow up with the bioinformatics programmer to get written prescriptions for pt to [...] Provider: Harrison Jett MD Place of Service: [facility] Patient Name: Sukhdeep Hall :1965 [id number] Chief complaint: Chest pain History of Present [...] Noted ??? STEMI involving right coronary artery ([facility]) [I21.11] 03/31/2018 Resolved Hospital Problems Diagnosis Date Noted Date Resolved No resolved problems to display. Plan:Inferior STEMI. We are taking him directly to the terrazzo laborer. I picked him up in the ambulance [...] which includes; general information about cardiac rehab, [facility] Cardiac Rehab Programs handout and [employer] Heart letter article entitled ???Cardiac Rehab is often the Best Medicine for Recovery , stresses the importance of cardiac rehab after a heart event. I provided the contact information for cardiac rehab where he lives, in [place]. Verbalized understanding, stated did not think he [...] 10:23 AM EDT RR Interval= 923 ms MS Interval= 168 ms QRSD Interval= 86 ms QT Interval= 420 ms QTc Interval= 437 ms Heart Rate= 65 ms P Retsof= 50 deg QRS Retsof= -2 deg T Wave Retsof= 47 deg I: 40 Retsof= -5 deg T: 40 Retsof= [address] Retsof= 85 deg SINUS RHYTHM NO SIGNIFICANT CHANGE FROM PREVIOUS ECG Electronically Signed by: ??Harrison Jett (Debra) ([facility]) 01-Apr-2018 10:22:38 Date and Time of Study: 2018-04-01 07:21:49 Procedure Note Harrison Jett MD - 04/01/2018 RR Interval= 923 ms MS Interval= 168 ms QRSD Interval= 86 ms QT Interval= 420 ms QTc Interval= 437 ms Heart Rate= 65 ms P Retsof= 50 deg QRS Retsof= -2 deg T Wave Retsof= 47 deg I: 40 Retsof= -5 deg T: 40 Retsof= [address] Retsof= 85 deg SINUS RHYTHM NO SIGNIFICANT CHANGE FROM PREVIOUS ECG Electronically Signed by: Harrison Jett (Debra) ([facility]) [id number] Date and Time of Study: 2018-04-01 07:21:49 Harrison Jett MD ECG ORDERABLES Final Result ECG * (ABNORMAL) Lipid Panel (04/01/2018 3:55 AM EDT) Total Cholesterol 214(H) 0 - 200 mg/dL 04/01/2018 5:29 AM EDT [facility] Triglycerides 259(H) 0 - 150 mg/dL 04/01/2018 5:29 AM EDT [facility] HDL Cholesterol 28(L) 40 - 60 mg/dL 04/01/2018 5:29 AM EDT [facility] LDL Cholesterol 134(H) 0 - 100 mg/dL 04/01/2018 5:29 AM [facility] VLDL Cholesterol 51.8(H) 5 - 40 mg/dL 04/01/2018 5:29 AM T [facility] LDL/HDL Ratio 4.79 04/01/2018 5:29 AM [facility] Blood Line / Unknown 04/01/2018 3: 55 AM EDT 04/01/2018 4:53 AM EDT [facility] - 04/01/2018 5:29 AM EDT Cholesterol [...] ORDERABLES Final Res ult Performing Organization Address [facility] de Phone Number [facility]
[address] [place] [address], * Hemoglobin A1c (04/01/2018 3:55 AM EDT) Hemoglobin A1C 5.60 4.80 - 5.60 % 04/01/2018 5:15 AM EDT [facility] Blood Line / Unknown 04/01/2018 3: 55 AM EDT 04/01/2018 4:54 AM EDT [facility] - 04/01/2018 5:15 AM EDT Hemoglobin A1C Ranges: Increased Risk for Diabetes ??5.7% to 6.4% Diabetes ? >= 6.5% Diabetic Goal ?< 7.0% Harrison Jett MD LAB BLOOD ORDERABLES Final Res ult Performing Organization Address [facility] de Phone Number [facility]
[address] [place] [address], * (ABNORMAL) Troponin (04/01/2018 3:55 AM EDT) Pathologist [facility] Troponin T 0.370(HH) 0.000 - 0.030 ng/mL 04/01/2018 5:34 AM EDT [facility] Blood Line / Unknown 04/01/2018 3: 55 AM EDT 04/01/2018 4:53 AM EDT Narrative [facility] - 04/01/2018 5:34 AM EDT Troponin T Reference Ranges: Less than 0.03 ng/mL: ?Negative for AMI 0.03 to 0.09 ng/mL: ?Indeterminant for AMI Greater than 0.09 ng/mL: Positive for AMI Harrison Jett MD LAB BLOOD ORDERABLES Final Res ult [facility]
[address] [place] [address], * (ABNORMAL) Basic Metabolic Panel (04/01/2018 3:55 AM EDT) [facility] Glucose 91 65 - 99 mg/dL 04/01/2018 5:30 AM EDT [facility] BUN 9 6 - 20 mg/dL 04/01/2018 5:30 AM T [facility] Creatinine 0.69(L) 0.76 - 1.27 mg/dL 04/01/2018 5:30 AM EDT [facility] Sodium 140 136 - 145 mmol/L 04/01/2018 5:30 AM EDT [facility] Potassium 3.3(L) 3.5 - 5.2 mmol/L 04/01/2018 5:30 AM EDT [facility] Chloride 104 98 - 107 mmol/L 04/01/2018 5:30 AM EDT [facility] CO2 22.9 22.0 - 29.0 mmol/L 04/01/2018 5:30 AM EDT [facility] Calcium 8.4(L) 8.6 - 10.5 mg/dL 04/01/2018 5:30 AM EDT [facility] eGFR Non Amer 120 >60 mL/min/1.7 3 04/01/2018 5:30 AM EDT [facility] BUN/Creatinine Ratio 13.0 7.0 - 25.0 04/01/2018 5:30 AM EDT [facility] Anion Gap 13.1 mmol/L 04/01/2018 5:30 AM EDT [facility] Blood Line / Unknown 04/01/2018 3: 55 AM EDT 04/01/2018 4:53 AM EDT Narrative [facility] - 04/01/2018 5:30 AM EDT GFR Normal >60 Chronic Kidney Disease <60 Kidney Failure <15 Harrison Jett MD LAB BLOOD ORDERABLES Final Res ult [facility]
[address] [place] [address], * (ABNORMAL) CBC (No Diff) (04/01/2018 3:55 AM EDT) WBC 10.71(H) 4.50 - 10.70 10*3/mm3 04/01/2018 5:05 AM [facility] RBC 5.11 4.60 - 6.00 10*6/mm3 04/01/2018 5:05 AM T [facility] Hemoglobin 16.2 13.7 - 17.6 g/dL 04/01/2018 5:05 AM [facility] Hematocrit 48.4 40.4 - 52.2 % 04/01/2018 5:05 AM T [facility] MCV 94.7 79.8 - 96.2 fL 04/01/2018 5:05 AM [facility] MCH 31.7 27.0 - 32.7 pg 04/01/2018 5:05 AM [facility] MCHC 33.5 32.6 - 36.4 g/dL 04/01/2018 5:05 AM EDT [facility] RDW 12.9 11.5 - 14.5 % 04/01/2018 5:05 AM EDT [facility] RDW-SD 44.7 37.0 - 54.0 fl 04/01/2018 5:05 AM EDT [facility] MPV 11.0 6.0 - 12.0 fL 04/01/2018 5:05 AM EDT [facility] Platelets 141 140 - 500 10*3/mm3 04/01/2018 5:05 AM EDT [facility] Blood Line / Unknown 04/01/2018 3: 55 AM EDT 04/01/2018 4:51 AM EDT Harrison Jett MD LAB BLOOD ORDERABLES Final Res ult Performing Organization Address City/[facility]/ZIP Co de Phone Number [facility]
[address] [place] [address], * POC Glucose Once (03/31/2018 5:53 PM EDT) Glucose 119 70 - 130 mg/dL 03/31/2018 5:54 PM EDT [facility] Blood 03/31/2018 5:53 PM EDT 03/31/2018 5:54 PM EDT Narrative [facility] - 03/31/2018 5:54 PM EDT Meter: [id number] Custom Frame Assembler: [id number] Mino Emery NA Harrison Jett MD POINT OF CARE TEST ORDERABLES Final Result [facility]
[address] [place] [address], * POC Glucose Once (03/31/2018 4:03 PM EDT) Glucose 124 70 - 130 mg/dL 03/31/2018 4:04 PM EDT [facility] Blood 03/31/2018 4:03 PM EDT 03/31/2018 4:04 PM EDT Narrative [facility] - 03/31/2018 4:04 PM EDT Meter: [id number] Custom Frame Assembler: [id number] Paxton Olga NA us No Known Provider POINT OF CARE TEST ORDERABLES Final Result [facility]
[address] [place] [address], * ECHO COMPLETE W/ DOPPLER AND COLOR [...] max PG (full) 1.1 mmHg EMC RAD CV ECHO PETERSON - PVA(V,A) 5.3 cm^2 [...] MVA P1/2T LCG 2.5 cm^2 EMC RAD CV ECHO [place] - BZI_BMI 34.6 kilograms/ m^2 EMC RAD CV ECHO [place] - BSA([place]) 2.5 m^2 EMC RAD CV ECHO [place] - BZI_METRIC_WEIG HT 115.7 kg EMC RAD CV ECHO [place]ERSON - BZI_METRIC_HEIG HT 182.9 [...] - 130 mg/dL 03/31/2018 11:27 AM EDT [facility] Blood 03/31/2018 11:2 5 AM EDT 03/31/2018 11:27 AM EDT Narrative [facility] - 03/31/2018 11:27 AM EDT Meter: [id number] Custom Frame Assembler: [id number] Paxton RENAE No Known Provider POINT OF CARE TEST ORDERABLES Final Result [facility]
[address] [place] [address], * ECG 12 Lead (03/31/2018 10:24 AM EDT) 03/31/2018 10:2 4 AM EDT Narrative ECG - 03/31/2018 4:56 PM EDT RR Interval= 938 ms MS Interval= 180 ms QRSD Interval= 98 ms QT Interval= 448 ms QTc Interval= 463 ms Heart Rate= 64 ms P Retsof= 56 deg QRS Retsof= 25 deg T Wave Retsof= 77 deg I: 40 Retsof= 23 deg T: 40 Retsof= [address] Retsof= 87 deg SINUS RHYTHM NO PRIOR TRACING AVAILABLE FOR COMPARISON Electronically Signed by: ??Ken Mazariegos ([facility]) 31-Mar-2018 16:54:52 Date and Time of Study: 2018-03-31 10:24:42 Procedure Note Ken Mazariegos MD - 03/31/2018 RR Interval= 938 ms MS Interval= 180 ms QRSD Interval= 98 ms QT Interval= 448 ms QTc Interval= 463 ms Heart Rate= 64 ms P Retsof= 56 deg QRS Retsof= 25 deg T Wave Retsof= 77 deg I: 40 Retsof= 23 deg T: 40 Retsof= [address] Retsof= 87 deg SINUS RHYTHM NO PRIOR TRACING AVAILABLE FOR COMPARISON Electronically Signed by: Ken Mazariegos ([facility]) 31-Mar-2018 16:54:52 Date and Time of Study: 2018-03-31 10:24:42 Harrison Jett MD ECG ORDERABLES Final Result Performing Organization Address [facility] de Phone Number ECG * (ABNORMAL) POC Glucose Once (03/31/2018 9:05 AM EDT) Glucose 148(H) 70 - 130 mg/dL 03/31/2018 9:24 AM EDT [facility] Blood 03/31/2018 9:05 AM EDT 03/31/2018 9:24 AM EDT Narrative [facility] - 03/31/2018 9:24 AM EDT Meter: [id number] Custom Frame Assembler: [id number] Arnold Flores RN No Known Provider POINT OF CARE TEST ORDERABLES Final Result Performing Organization Address [facility] de Phone Number [facility]
[address] [place] [address], * (ABNORMAL) POC Activated Clotting Time (03/31/2018 8:42 AM EDT) Activated Clotting Time 268(H) 82 - 152 Seconds 04/01/2018 7:06 AM EDT [facility] Comment:Serial Number: [id number] 1Operator: [id number] Blood 03/31/2018 8:42 AM EDT 04/01/2018 7:06 AM EDT Harrison Jett MD POINT OF CARE TEST ORDERABLES Final Result Performing Organization Address [facility] de Phone Number [facility]
[address] [place] [address], * LEFT HEART CATH, CORONARY ANGIOGRAPHY, LEFT VENTRICULOGRAPHY, PERC CORONARY INTERVENTION, STENT FLOR- CORONARY (03/31/2018 8:41 AM EDT) Anatomical Region Laterality Modality X-Ray Angiograph y Narrative 03/31/2018 9:13 AM EDT CARDIAC CATHETERIZATION REPORT Procedure:Left heart catheterization, angioplasty and drug eluting stent placement DATE OF PROCEDURE: 03/31/18 PROCEDURE PERFORMED BY: Harrison Jett MD, [facility] INDICATION FOR PROCEDURE:Inferior STEMI DESCRIPTION OF PROCEDURE: After consent was obtained, access was gained in his right radial artery using a micropuncture technique. A 6-Belarusian short sheath was placed without difficulty. ??Intraarterial [...] Activated Clotting Time (03/31/2018 8:30 AM EDT) [facility] Activated Clotting Time 252(H) 82 - 152 Seconds 04/01/2018 7:06 AM EDT [facility] Comment:Serial Number: [id number] 1Operator: [id number] Blood 03/31/2018 8:30 AM EDT 04/01/2018 7:06 AM EDT Harrison Jett MD POINT OF CARE TEST ORDERABLES Final Result [facility]
[address] [place] [address], * (ABNORMAL) CBC Auto Differential (03/31/2018 8:25 AM EDT) Pathologist [facility] WBC 13.00(H) 4.50 - 10.70 10*3/mm3 03/31/2018 8:49 AM EDT [facility] RBC 4.96 4.60 - 6.00 10*6/mm3 03/31/2018 8:49 AM EDT [facility] Hemoglobin 16.1 13.7 - 17.6 g/dL 03/31/2018 8:49 AM EDT [facility] Hematocrit 45.5 40.4 - 52.2 % 03/31/2018 8:49 AM EDT [facility] MCV 91.7 79.8 - 96.2 fL 03/31/2018 8:49 AM [facility] MCH 32.5 27.0 - 32.7 pg 03/31/2018 8:49 AM [facility] MCHC 35.4 32.6 - 36.4 g/dL 03/31/2018 8:49 AM [facility] RDW 13.1 11.5 - 14.5 % 03/31/2018 8:49 AM [facility] RDW-SD 43.4 37.0 - 54.0 fl 03/31/2018 8:49 AM [facility] MPV 11.0 6.0 - 12.0 fL 03/31/2018 8:49 AM [facility] Platelets 169 140 - 500 10*3/mm3 03/31/2018 8:49 AM [facility] Neutrophil % 58.6 42.7 - 76.0 % 03/31/2018 8:49 AM [facility] Lymphocyte % 33.5 19.6 - 45.3 % 03/31/2018 8:49 AM [facility] Monocyte % 5.5 5.0 - 12.0 % 03/31/2018 8:49 AM [facility] Eosinophil % 2.2 0.3 - 6.2 % 03/31/2018 8:49 AM [facility] Basophil % 0.2 0.0 - 1.5 % 03/31/2018 8:49 AM [facility] Immature Grans % 0.5 0.0 - 0.5 % 03/31/2018 8:49 AM [facility] Neutrophils, Absolute 7.61 1.90 - 8.10 10*3/mm3 03/31/2018 8:49 AM [facility] Lymphocytes, Absolute 4.36 0.90 - 4.80 10*3/mm3 03/31/2018 8:49 AM [facility] Monocytes, Absolute 0.71 0.20 - 1.20 10*3/mm3 03/31/2018 8:49 AM [facility] Eosinophils, Absolute 0.29 0.00 - 0.70 10*3/mm3 03/31/2018 8:49 AM EDT [facility] Basophils, Absolute 0.03 0.00 - 0.20 10*3/mm3 03/31/2018 8:49 AM EDT [facility] Immature Grans, Absolute 0.06(H) 0.00 - 0.03 10*3/mm3 03/31/2018 8:49 AM EDT [facility] Blood Right upper arm structure / Unknown Line / Unknown 03/31/2018 8:25 AM EDT 03/31/2018 8:44 AM EDT Harrison Jett MD LAB BLOOD ORDERABLES Final Res ult Performing Organization Address [facility] de Phone Number [facility]
[address] [place] [address], * Troponin (03/31/2018 8:25 AM EDT) Pathologist [facility] Troponin T <0.010 0.000 - 0.030 ng/mL 03/31/2018 9:13 AM EDT [facility] Blood Right upper arm structure / Unknown Line / Unknown 03/31/2018 8:25 AM EDT 03/31/2018 8:44 AM EDT Narrative [facility] - 03/31/2018 9:13 AM EDT Troponin T Reference Ranges: Less than 0.03 ng/mL: ?Negative for AMI 0.03 to 0.09 ng/mL: ?Indeterminant for AMI Greater than 0.09 ng/mL: Positive for AMI us Harrison Jett MD LAB BLOOD ORDERABLES Final Res ult Performing Organization Address [facility] Co de Phone Number [facility]
[address] [place] [address], * (ABNORMAL) Protime-INR (03/31/2018 8:25 AM EDT) Protime 14.7(H) 11.7 - 14.2 Seconds 03/31/2018 9:17 AM EDT [facility] INR 1.17(H) 0.90 - 1.10 03/31/2018 9:17 AM T [facility] Blood Right upper arm structure / Unknown Line / Unknown 03/31/2018 8:25 AM EDT 03/31/2018 8:44 AM EDT Harrison Jett MD LAB BLOOD ORDERABLES Final Res ult [facility]
[address] [place] [address], * (ABNORMAL) Comprehensive Metabolic Panel (03/31/2018 8:25 AM EDT) Glucose 156(H) 65 - 99 mg/dL 03/31/2018 9:18 AM T [facility] BUN 14 6 - 20 mg/dL 03/31/2018 9:18 AM [facility] Creatinine 0.89 0.76 - 1.27 mg/dL 03/31/2018 9:18 AM [facility] Sodium 141 136 - 145 mmol/L 03/31/2018 9:18 AM [facility] Potassium 2.5(L) 3.5 - 5.2 mmol/L 03/31/2018 9:18 AM [facility] Chloride 103 98 - 107 mmol/L 03/31/2018 9:18 AM EDT [facility] CO2 22.4 22.0 - 29.0 mmol/L 03/31/2018 9:18 AM [facility] Calcium 8.7 8.6 - 10.5 mg/dL 03/31/2018 9:18 AM [facility] Total Protein 6.5 6.0 - 8.5 g/dL 03/31/2018 9:18 AM [facility] Albumin 4.30 3.50 - 5.20 g/dL 03/31/2018 9:18 AM EDT [facility] ALT (SGPT) 43(H) 1 - 41 U/L 03/31/2018 9:18 AM EDT [facility] AST (SGOT) 22 1 - 40 U/L 03/31/2018 9:18 AM EDT [facility] Alkaline Phosphatase 78 39 - 117 U/L 03/31/2018 9:18 AM EDT [facility] Total Bilirubin 1.7(H) 0.1 - 1.2 mg/dL 03/31/2018 9:18 AM EDT [facility] eGFR Non Amer 89 >60 mL/min/1.7 3 03/31/2018 9:18 AM T [facility] eGFR Amer 108 >60 mL/min/1.7 3 03/31/2018 9:18 AM [facility] Globulin 2.2 gm/dL 03/31/2018 9:18 AM [facility] A/G Ratio 2.0 g/dL 03/31/2018 9:18 AM T [facility] BUN/Creatinine Ratio 15.7 7.0 - 25.0 03/31/2018 9:18 AM [facility] Anion Gap 15.6 mmol/L 03/31/2018 9:18 AM T [facility] Blood Right upper arm structure / Unknown Line / Unknown 03/31/2018 8:25 AM EDT 03/31/2018 8:44 AM EDT us Harrison Jett MD LAB BLOOD ORDERABLES Final Res ult [facility]
[address] [place] [address], * (ABNORMAL) aPTT (03/31/2018 8:25 AM EDT) PTT >200.0(HH) 22.7 - 35.4 seconds 03/31/2018 9:17 AM EDT [facility] Blood Right upper arm structure / Unknown Line / Unknown 03/31/2018 8:25 AM EDT 03/31/2018 8:44 AM EDT Harrison Jett MD LAB BLOOD ORDERABLES Final Res ult [facility]
[address] [place] [address], * SCANNED - TELEMETRY (03/31/2018) Anatomical Region Laterality Modality Other [facility] New Onbase ECG ORDERABLES Final Result documented in this encounter Visit Diagnoses Not on filedocumented in this encounter Admitting Diagnoses Diagnosis STEMI [...] Given 03/31/2018 11:30 AM EDT 81 mg aspirin tablet As Needed, Starting on Yamila 03/31/18 at 0833 Given 03/31/2018 8:33 AM EDT 32 5 mg BH (CUPID ONLY) ADENOSINE 6 MG/100ML MIXTURE injection As Needed, Starting on Yamila 03/31/18 at 0829 Given 03/31/2018 8:32 AM EDT 18 0 mcg Given 03/31/2018 8:31 AM EDT 120 mcg Given 03/31/2018 8:29 AM EDT 60 mcg fentaNYL citrate (PF) (SUBLIMAZE) injection As Needed, Starting on Yamila 03/31/18 at 0818 Given 03/31/2018 8:41 AM EDT 50 mcg Given 03/31/2018 8:35 AM EDT 50 mcg Given 03/31/2018 8:22 AM EDT 50 mcg heparin (porcine) injection As Needed, Starting on Yamila 03/31/18 at 0816 Given 03/31/2018 8:48 AM EDT 4,000 Units Left Arm Given 03/31/2018 8:34 AM EDT 5,000 Units L eft Arm Given 03/31/2018 8:16 AM EDT 10,000 Units HYDROcodone-acetaminophen (NORCO) 5-325 MG per tablet 1 [...] Given 03/31/2018 10:17 AM EDT 1 tablet iopamidol (ISOVUE-370) 76 % injection As Needed, Starting on Yamila 03/31/18 at 0841 Given 03/31/2018 8:41 AM EDT 142 mL Right Arm lidocaine (XYLOCAINE) 2% injection As Needed, Starting on Yamila 03/31/18 at 0819 Given 03/31/2018 8:19 AM EDT 10 mL Wrist Right lisinopril (PRINIVIL,ZESTRIL) 10 mg, hydrochlorothiazide (HYDRODIURIL) 12.5 mg for ZESTORTIC 10-12.5 Oral, Every 24 Hours Scheduled, First dose on Yamila 03/31/18 at 2200, Give both components Given 03/31/2018 10:48 PM EDT metoprolol tartrate (LOPRESSOR) injection As Needed, Starting on Yamila 03/31/18 at 0821 Given 03/31/2018 8:21 AM EDT 5 mg midazolam (VERSED) injection As Needed, Starting on Yamila 03/31/18 at 0817 Given 03/31/2018 8:17 AM EDT 2 mg morphine injection 1 mg 1 mg, Intravenous, [...] 0902 Given 03/31/2018 1:04 PM EDT 4 m g ondansetron (ZOFRAN) tablet 4 mg 4 mg, Oral, Every 6 Hours PRN, Nausea, Vomiting, Starting on Yamila 03/31/18 at 0902 ondansetron ODT (ZOFRAN-ODT) disintegrating tablet 4 mg 4 mg, Oral, Every 6 Hours PRN, Nausea, Vomiting, Starting on Yamila 8/9/18 at 0902, Place on tongue and allow to dissolve. potassium chloride (KLOR-CON) packet 40 mEq 40 mEq, Oral, As Needed, potassium replacement, see admin instructions, Starting on Wed03/31/18 at 1129, Potassium replacement Oral (may give [...] Given 04/01/2018 8:55 AM EDT 10 mg prasugrel (EFFIENT) tablet As Needed, Starting on Wed03/31/18 at 0834 Given 03/31/2018 8:34 AM EDT 60 mg sodium chloride 0.9 % infusion Continuous PRN, Starting on Wed03/31/18 at 0845 New Bag 03/31/2018 8:17 AM EDT 125 mL/hr 125 mL/hr Left Arm verapamil (ISOPTIN) 500 mcg, nitroglycerin (TRIDIL) 200 mcg, heparin (porcine) 3,000 Units radial artery injection As Needed, Starting on Yamila 03/31/18 at 0821 Given 03/31/2018 8:21 AM EDT 5 mL Right Arm documented in this encounter Active and Recently Administered Medications Times are shown in EDT. Scheduled Medication Order 03/30/2018 03/31/2018 04/01/2018 amLODIPine (NORVASC) tablet 10 mg 10 mg, Oral, Every 24 Hours Scheduled, First dose on Yamila 03/31/18 at 2100, Caution: Look alike/sound alike drug alert. Avoid grapefruit juice. 224 (Given - Provider: Sherrie Hussein RN - [...] 1130 (Given - Provider: Noelle Eastman RN) 0882 (Given - Provider: Mayra Herron RN) lisinopril (PRINIVIL,ZESTRIL) 10 mg, hydrochlorothiazide (HYDRODIURIL) 12.5 mg for ZESTORTIC 10-12.5 Oral, Every 24 Hours Scheduled, First dose on Yamila 03/31/18 at 2200, Give both components 2247 (Given - Provider: Sherrie Hussein, NATHAN) nicotine (NICODERM CQ) 21 MG/24HR patch 1 [...] Package. 1133 (Medication Applied - Provider: Noelle Eastman RN) 0855 (Medication Removed - Provider: Mayra Herron, NATHAN)0858 (Medication Applied - Provider: Mayra Herron, NATHAN) potassium chloride (MICRO-K) CR capsule 40 mEq (COMPLETED) 40 mEq, Oral, Once, On Yamila 03/31/18 at 1200, For 1 dose, Do not crush. Take with food. 1121 (Given - Provider: Noelle Eastman, NATHAN) prasugrel (EFFIENT) tablet 10 mg 10 mg, [...] () 125 mL/hr, Intravenous, Continuous, Starting on Yamila 03/31/18 at 0907, For 10 hours 1000 (Rate/Dose Change - Provider: Noelle Eastman, NATHAN)1304 (New Bag - Provider: Sandra Barrett RN) PRN Medication Order 03/30/2018 03/31/2018 04/01/2018 aspirin tablet (CANCELED) As Needed, Starting on Yamila 03/31/18 at 0833 0833 (Given - Provider: Suzi Soriano RN - Comment: V.O,RV) BH (CUPID ONLY) ADENOSINE 6 MG/100ML MIXTURE injection (CANCELED) As Needed, Starting on Yamila 03/31/18 at 0829 0829 (Given - Provider: Harrison [...] RV)0841 (Given - Provider: Harrison Rasheed Jr., RN - Comment: REYNOLD Torres) heparin (porcine) injection (CANCELED) As Needed, Starting on Yamila 03/31/18 at 0816 0816 (Given - Provider: Harrison Rasheed Jr., RN - Comment: vorv. verified)0834 (Given - Provider: Harrison Rasheed Jr., RN - Comment: BrianRV, DOSAGE VERIFIED W/ SANTOS EVANS)0848 (Given - Provider: Harrison Rasheed Jr., RN - Comment: KalpeshORV, DOSAGE VERIFIED BY SANTOS EVANS) HYDROcodone-acetaminophen (NORCO) [...] Eastman RN)2108 (Given - Provider: Sherrie Hussein, RN) 0614 (Given - Provider: Sherrie Hussein RN)0906 (Given - Provider: Mayra Herron RN) prasugrel (EFFIENT) tablet (CANCELED) As Needed, Starting on Yamila 03/31/18 at 0834 0834 (Given - Provider: Suzi Soriano RN - Comment: Brian,RV) sodium chloride 0.9 % infusion (COMPLETED) Continuous PRN, Starting on Yamila 03/31/18 at 0845 0817 (New Bag - Provider: Suzi Soriano RN - Comment: Brian,RV) verapamil (ISOPTIN) 500 mcg, nitroglycerin (TRIDIL) 200 [...] 0902 documented in this encounter 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
[2024-07-10 08:50] LABS: Chloride 105 mmol/L (98-107); Potassium 3.7 mmoL/L (3.5-5.1); Sodium 138 mmol/L (136-145)
[2024-07-10 08:53] LABS: Blood Urea Nitrogen 32 mg/dl (9-20); Estimated Glomerular Filt Rate 52 ml/min (>60); GFR (African American) 63 ML/MIN (>60)
[2024-07-10 08:54] LABS: Anion Gap 8.7 mEq/L (5-15); Calcium 8.7 mg/dl (8.4-10.2); Carbon Dioxide 28 mmol/L (22.0-30.0); Glucose 141 mg/dl (74-100); Magnesium 1.8 mg/dl (1.6-2.3)
== END 2024-07-10 23:59 | disposition home or self-care (01) ==
LOC: LAB 08:12
PROVIDERS: PCP Pediatrics; Visit Provider Internal Medicine Interventional Cardiology
DX: I10 Essential (primary) hypertension (principal)
CPT/HCPCS: 36415; 80048; 83735

== ENCOUNTER 2024-11-27 09:26 | Outpatient (CLI) | payer MEDICARE, SELFPAY ==
[2024-11-27 10:46] LABS: Alanine Aminotransferase 48 U/L (12-78); Albumin Level 3.4 g/dl (3.5-5.0); Alkaline Phosphatase 80 U/L (38-126); Aspartate Amino Transferase 39 U/L (17-59); Bilirubin,Direct 0.3 mg/dl (0.0-0.4); Bilirubin,Indirect 0.6 mg/dL (0.0-0.9); Bilirubin,Total 0.9 mg/dl (0.2-1.3); Bilirubin,Unconjugated 0.6 mg/dL (0.0-1.1); Chol/HDL Ratio 9.2 (1-3.5); Cholesterol 295 mg/dl (140-200); HDL Cholesterol 32 mg/dl (40-60); Total Protein,Serum 5.9 g/dl (6.3-8.2)
[2024-11-27 11:05] LABS: Triglycerides 742 mg/dl (30-150)
--- OUTSIDE RECORDS SUMMARY | 2024-11-30 20:14 | XMS_ITS | Continuity of Care Document ---
Author Organization [facility] Address [address] [place] [address] Care Team Providers Care Knockout Man Name Role Phone DIYA ROSALES Primary Care Provider Assessment No assessment recorded. Plan of Treatment Reminders Order Date Submit Date Provider Last Modified By Organization Details Last Modified Time Details Appointments ANNUAL FU 20 2025 09:50A M Diya Rosales MD Not available Not available Not available Lab influenza virus A + B + SARS-CoV- 2 (COVID19) Ag panel, rapid IA, upper respirato ry specimen 2024 025 [facility], [address] [place] [address], [place], [address], 10/25/2024 16:58:42 Referral None recorded. Procedures None recorded. Surgeries None recorded. Imaging None recorded. Medication Orders albuterol sulfate HFA 90 mcg/actua tion aerosol inhaler [address] [facility], [address], [address], 10/25/2024 17:04:39 oseltamiv ir 75 mg capsule [address] [facility], [address], [address], 11/29/2024 14:46:50 Mucinex DM 30 mg-600 mg tablet,ex tended release 12 hr 2024 025 [facility], [address], [address], 11/29/2024 14:55:15 Patient TargetsNo targets recorded. Patient InstructionsNo instructions recorded. Reason for Referral None Reported. Results Created Date Observation Date Name Description Value Unit Range Abnormal Flag Note LastModifiedBy Organization Detail LastModifiedTime 10/26/1910/25/2024 influ james virus A + B + SARS- CoV-2 (COVI D19) Ag panel , rapid IA, upper respi rator y speci men FLU A positi ve Not Available [facility] [address] , [place], [address], 10/25/2024 16:25:19 10/26/19 25 10/25/2024 influ james virus A + B + SARS- CoV-2 (COVI D19) Ag panel , rapid IA, upper respi rator y speci men FLU B negati ve Not Available [facility] [address] , [place], [address], 10/25/2024 16:25:19 10/26/19 25 10/25/2024 influ james virus A + B + SARS- CoV-2 (COVI D19) Ag panel , rapid IA, upper respi rator y speci men SARS COV + SARS OV 2 negati ve Not Available [facility] [address] , [place], [address], 10/25/2024 16:25:19 Result Notes None recorded. Problems Name Problem SNOMED Code Status Onset Date Resolution Date Notes Provider Name and Address Organization Details Recorded Time Chronic obstructiv e pulmonary disease 11015428 Active Not Available [facility] 3 18:16:37 Coronary arterioscl erosis 25597093 Active Not Available [facility] 3 18:16:37 Chronic pain 16082399 Active [facility] Available [facility] 18:16:37 Insomnia 824464732 Active Not Available [facility] 3 18:16:37 Hypertensi ve disorder 26085850 Active Not Available [facility] 3 18:16:37 Polyp of colon 54198296 Active Not Available [facility] 3 18:16:37 Chronic back pain 866940491 Active 2023 Diya Rosales MD [address], [place], [address] , [place] - [facility] [place] & [place] 4 16:58:05 Tobacco dependence caused by cigarettes 1778828515311 9107 Active [address], [place], [place], [address] [place] [address] , [place] - [facility] [place] & [place] 4 09:47:56 Hyperlipid emia 33541617 Active 2023 [facility] [address], [place] [address] , [place] - [facility] [place] & [place] 4 11:45:38 Gout 55731127 Active 2023 Diya Rosales MD [facility], [place], [place], [address] [place] [address] , [place] [facility] [place] 4 11:45:45 Problem Notes None recorded. Procedures Surgical History Date Name Laterality Status Provider Name and Address Organization Details Recorded Time 09/28/19 24 low dose computed tomography of chest without contrast completed Mayra MIGUEL - [facility] [place] [facility] [place] 07/26/2024 16:50:13 03/30/20 22 colonoscopy completed Mayra MIGUEL - [facility] - [place] & [place] 07/26/2024 16:53:39 06/23/20 21 Total knee arthroplasty completed Evelyne Vincent [place] - [facility] - [place] & [place] 08/05/2023 08:03:24 04/10/20 18 catheterization of left heart completed Evelyne Vincent [place] - [facility] [place] 08/05/2023 08:07:40 12/03/19 17 incision and drainage completed Mayra MIGUEL - [facility] - [place] & [place] 07/26/2024 16:57:42 11/25/19 17 incision and drainage completed Mayra MIGUEL - [facility] - [place] & [place] 07/26/2024 16:58:07 Vasectomy completed Evelyne Rothamer [place] - [facility] [place] & [place] 08/05/2023 08:00:40 debridement by high pressure irrigation completed Evelyne [place] [facility] [place] & [place] 08/05/2023 08:01:05 Colonoscopy completed Evelyne Rothamer [place] [facility] [place] & [place] 08/05/2023 08:03:11 Ligation of hemorrhoid(s) completed Evelyne Rothamer [place] - [facility] & [place] 08/05/2023 08:03:59 percutaneous transluminal balloon angioplasty of coarctation of aorta with insertion of stent completed Evelyne [place]amer [place] [facility] & [place] 08/05/2023 08:04:37 procedure completed Evelyne Rothamer [place] [facility] [place] & [place] 08/05/2023 08:05:01 cardiac ventriculography completed Evelyne [place]amer [place] - [facility] & [place] 08/05/2023 08:05:58 angiography of coronary artery completed Evelyne Rothamer [place] [facility] [place] & [place] 08/05/2023 08:06:15 percutaneous coronary intervention completed Evelyne [place]amer [place] [facility] [place] & [place] 08/05/2023 08:06:33 placement of stent in anterior descending branch of left coronary artery completed Evelyne [place]amer [place] [facility] [place] & [place] 08/05/2023 08:06:53 Imaging Results None recorded. Procedure Notes None recorded. Medical Equipment None Reported. Allergies Allergen ID Allergen Name Allergen Category Reaction Reaction Severity Criticality Documentation Date Start Date Code Code System Note Provider Name and Address Organization Details Recorded Time 05318 Product containin g 3-hydroxy -3-methyl glutaryl- coenzyme A reductase inhibitor (product) medicatio n nausea Not available Not available 06/12/2022 86123 009 SNOMED Betty Didier null, [place] - [facility] - [place] & [place] 2 14:39:17 Medications Name Sig Start Date Stop Date Status Note LastModified by Organization Details LastModified Time Prescriptio n - Renewal 03/07 completed Not Available Not Available Not Available cyclobenzap rine 10 mg tablet TAKE 1 TABLET BY MOUTH EVERY 8 HOURS NEEDED active Not Available Not Available No t Available amoxicillin 500 mg capsule TAKE ONE CAPSULE BY MOUTH THREE TIMES DAILY FOR 7 DAYS -- FINISH ALL MEDICINE -- 09/03 completed Not Available Not Available Not Available methocarbam ol 500 mg tablet Take 1 {tablets} 6 times a day by oral route. 09/14 completed Not Available Not Available Not Available carvedilol 25 mg tablet 1 tablet by mouth twice daily 2024 active Not Available Not Available Not Avai [...] nifedipine ER 90 mg tablet,exte nded release Take 1 tablet by mouth once daily active Not Available Not Available No t [...] TABLET BY MOUTH EVERY 6 HOURS NEEDED 11/29 completed Not Available Not Available Not Available omeprazole 40 mg capsule,del ayed release 03/04 completed Not Available Not Available Not Available oxycodone-a cetaminophe n 5 mg-325 mg tablet TAKE ONE TABLET BY MOUTH EVERY 4 HOURS NEEDED FOR PAIN MAY CAUSE DROWSINES S 09/03 completed Not Available Not Available Not Available potassium chloride ER 20 mEq tablet,exte nded release(par t/cryst) 11/29 completed Not Available Not Available Not Available magnesium oxide 400 mg (241.3 mg magnesium) tablet Take by oral route. active OTC Not Available Not Available No t Available trazodone 100 mg tablet TAKE 1 TO 3 TABLETS BY MOUTH AT BEDTIME NEEDED FOR SLEEP 09/03 completed Not Available Not Available Not Available nifedipine ER 90 mg tablet,exte nded release 24 hr active Not Available Not Available Not Available amlodipine 10 mg tablet TAKE 1 TABLET BY MOUTH ONCE DAILY FOR 90 DAYS 09/14 completed Not Available Not Available Not Available doxycycline monohydrate 100 mg capsule TAKE 1 CAPSULE BY MOUTH TWICE DAILY FOR 7 DAYS 09/14 completed Not Available Not Available Not Available oseltamivir 75 mg capsule TAKE 1 CAPSULE BY MOUTH TWICE DAILY FOR 5 DAYS 11/29 completed Not Available Not Available Not Available [...] sulfate HFA 90 mcg/actuati on aerosol inhaler INHALE 2 PUFFS BY MOUTH EVERY 6 HOURS NEEDED active [...] completed Not Available Not Available Not Available Mucinex DM 30 mg-600 mg tablet,exte nded release 12 hr Take 1 tablet every 12 hours by oral route as needed. 11/29 completed Not Available Not Available Not Available Co Q-10 03/04 completed Not Available Not Available Not Available oxycodone 10 mg tablet TAKE [...] 1 SYRINGE SUBCUTANE OUSLY ONCE A WEEK ON THE SAME DAY EACH WEEK 11/29 completed Not Available Not Available Not Available Vitals Date Recorded Body height Body mass index (BMI) Body weight Body temperature Provider Name and Address Organization Details Last Updated DateTime 10/25/2024 182.88 cm 35.9 kg/m2 435760.19 g 99.7 [degF] Sayda MIGUEL [facility] & [place] 10/25/2024 16:24:36 Social History Question Answer Notes LastModified by Organizat ion Details LastModified Time Tobacco Smoking Status Current Every Day Smoker MYRIAM Soto [facility] & [place] 09/14/2022 10:10:36 Do You Have An Advance [...] Do You Have A Medical Power Of Hotel Front Desk Agent? No Information not available 03/07/2024 What Was [...] Anxious, Or Unable To Sleep At Night)? [id number] Information not available 03/01/2024 Do You Use [...] available 2022 07:55:02 Unspecified Relation Diabetes mellitus Not available 04/2025 13:37:27 Unspecified Relation Hyperlipidem ia [email or web address] Not available 04/2025 13:37:27 Unspecified Relation Hypertensive disorder [email or web address] Not available 2023 09:46:43 Unspecified Relation Gout [email or web address] Not available 11/29 13:37:27 Medical History Condition Response Coronary Artery Disease Y Gout Y None N Kidney Stones N Hyperthyroidism N Hypothyroidism N Depression N COPD Y Difficulty Swallowing N Anxiety Disorder N Meniere's disease N Obesity Y Arthritis Y Mental Disorder N Cancer Y Stroke N High Cholesterol Y Liver Disease N Fibromyalgia N Kidney Disease N Anemia N MRSA exposure N Heart Attack (NC) Y Diabetes N Tuberculosis N AIDS/HIV N Congestive Heart Failure (CHF) N Diverticulitis Y Asthma N Reflux/GERD Y Jaundice N Heart Disease Y Pulmonary Embolism N Chronic Ear Infections N Hypertension Y Osteoporosis N Immunizations Vaccine Type Date Status Note Provider Nam e and Address Organization Details Recorded Time Tdap 09/03/2023 completed Diya Rosales MD [address] [facility], [place], [address], [place] [facility] [place] & [place] 09/06/2023 12:07:42 COVID-19, mRNA, LNP-S, PF, 100 mcg/0.5mL dose or 50 mcg/0.25mL dose 12/26/2020 completed Evelyne mcnulty, [place] - [facility] [place] & [place] 08/05/2023 07:52:51 COVID-19, mRNA, LNP-S, PF, 100 mcg/0.5mL dose or 50 mcg/0.25mL dose 01/23/2021 completed Evelyne Vincent null, [place] [facility] [place] & [place] 08/05/2023 07:52:51 COVID-19, mRNA, LNP-S, PF, 100 mcg/0.5mL dose or 50 mcg/0.25mL dose 08/01/2021 completed Evelyne Vincent null, [place] [facility] [place] & [place] 08/05/2023 07:52:51 Past Encounters Encounter ID Performer Location Encounter Start Date Encounter Closed Date Diagnosis/Indication Diagnosis SNOMED-CT Code Diagnosis ICD10 Code Diagnosis Note [id number] Diya Rosales MD [facility] [address] [place] [address] 10/25/2024 16:11:56 10/25/2024 17:04:18 Influenza caused by Influenza A virus 790086867 J09.X2 Health Concerns Section Related Observation LastModified by Organization Detai ls LastModified Time None Recorded Concern Status LastModified by Organization Details LastModified Time None Recorded Payers Encounter Date Sequence Insurance Name Policy Number Policy Rogers Covered Member ID Rogers Member ID Guarantor Name 10/25/2024 1 [employer] (MEDICARE REPLACEMENT/A DVANTAGE - PPO) Sukhdeep Isabel [id number] Sukhdeep Hall Notes Date Note Type Note Provider Name and Address Organization Details Recorded Time 10/25/2024 text/html Has had a cough for the past week. Yesterday, the cough got worse and began having a bad headache. Cough is sometimes productive. Having dry heaves and diarrhea today. Not sure about fevers but has had chills. No one else sick at home Diya Rosales MD [address] [facility], [place], [address], [place] [facility] [place] & [place] 10/25/2024 21:24:07
--- OUTSIDE RECORDS SUMMARY | 2024-11-30 20:14 | XMS_ITS | Data Portability ---
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 Name Role Phone DIYA ROSALES Primary Care [...] [place], upper respirato ry specimen [facility]24 [email or web address], [address] [place] [address], [address], [place], [address], 10/25/2024 16:58:42 uric acid, serum or plasma 2023 024 [facility], [address], [address], [place], [address], 03/08/2024 09:41:12 CMP, serum or plasma 2023 024 [facility], [address], [address], [place], [address], 03/08/2024 09:41:10 lipid panel, serum 2023 024 [facility], [address], [address], [place], [address], 03/08/2024 09:41:11 CBC w/ auto diff 2023 024 [facility], [address], [address], [place], [address], 03/08/2024 09:41:10 Referral orthopedi c surgeon referral 2022 023 [email or web address] Eduin Rosado MD, [address], [address], [place], [address], 01/26/2023 09:02:51 Procedures None recorded. Surgeries None recorded. Imaging LDCT, chest, for lung cancer screening 2023 024 [facility] ([facility]), [address], [place], [address], 09/28/2023 16:01:47 Medication Orders albuterol sulfate HFA 90 mcg/actua tion aerosol inhaler 2024 025 [facility], [address] [place], [address], 10/25/2024 17:04:39 oseltamiv ir 75 mg capsule 2024 025 [facility], [address] [place], [address], 11/29/2024 14:46:50 Mucinex DM 30 mg-600 mg tablet,ex tended release 12 hr 2024 025 [facility], [address] [place], [address], 11/29/2024 14:55:15 meloxicam 15 mg tablet 2023 024 [facility], [address] [place], [address], 03/07/2024 11:45:25 cyclobenz aprine 10 mg tablet 2023 024 [facility], [address], [address], 03/07/2024 11:45:24 allopurin ol 300 mg tablet 2023 024 [facility], [address], [address], 09/03/2023 16:56:35 cyclobenz aprine 10 mg tablet 2023 024 [facility], [address], [address], 09/03/2023 16:58:48 albuterol sulfate HFA 90 mcg/actua tion aerosol inhaler 2022 023 [facility], [address], [address], 09/14/2022 11:05:37 Patient TargetsNo targets recorded. Patient InstructionsNo instructions recorded. Reason for Referral Orthopedic Surgeon Referral for Shoulder pain 57 yo male with h/o degenerative changes in both shoulders, requesting cortisone injections Referring Physician: Diya Rosales, Internal Medicine, Encounter Date: 09/14/2022 Results Created Date Observation Date Name Description Value Unit Range Abnormal Flag Note LastModifiedBy Organization Detail LastModifiedTime 03/07/2003/08/2024 CBC WITH DIFFE RENTI AL/PL ATELE T WBC 10.4 x10e3 /uL 3.4-10 .8 Not Available [facility] ([facility]) [address] [place], [address], 03/08/2024 09:41:10 03/07/2003/08/2024 CBC WITH DIFFE RENTI AL/PL ATELE T RBC 4.70 x10e6 /uL 4.14-5 .80 Not Available [facility] ([facility]) [address] [facility], [place], [address], 03/08/2024 09:41:10 03/07/20 24 03/08/2024 CBC WITH DIFFE RENTI AL/PL ATELE T hemoglobin 15.4 g/dL 13.0-1 7.7 Not Available [facility] ([facility]) [address] [place], [address], 03/08/2024 09:41:10 03/07/20 24 03/08/2024 CBC WITH DIFFE RENTI AL/PL ATELE T hematocrit 44.5 % 37.5-5 1.0 Not Available [facility] ([facility]) [address] [place], [address], 03/08/2024 09:41:10 03/07/20 24 03/08/2024 CBC WITH DIFFE RENTI AL/PL ATELE T MCV 95 fL 79-97 Not Available [facility] ([facility]) [address] [facility], [place], [address], 03/08/2024 09:41:10 03/07/20 24 03/08/2024 CBC WITH DIFFE RENTI AL/PL ATELE T MCH 32.8 pg 26.6-3 3.0 Not Available [facility] ([facility]) [address] [facility], [place], [address], 03/08/2024 09:41:10 03/07/20 24 03/08/2024 CBC WITH DIFFE RENTI AL/PL ATELE T MCHC 34.6 g/dL 31.5-3 5.7 Not Available [facility] ([facility]) [address] [place], [address], 03/08/2024 09:41:10 03/07/20 24 03/08/2024 CBC WITH DIFFE RENTI AL/PL ATELE T RDW 14.0 % 11.6-1 5.4 Not Available [facility] ([facility]) [address] [place], [address], 03/08/2024 09:41:10 03/07/20 24 03/08/2024 CBC WITH DIFFE RENTI AL/PL ATELE T platelets 206 x10e3 /uL 150-45 0 Not Available [facility] ([facility]) [address] [facility], [place], [address], 03/08/2024 09:41:10 03/07/20 24 03/08/2024 CBC WITH DIFFE RENTI AL/PL ATELE T neutrophils 67 % not estab. Not Available [facility] ([facility]) [address] [facility], [place], [address], 03/08/2024 09:41:10 03/07/20 24 03/08/2024 CBC WITH DIFFE RENTI AL/PL ATELE T lymphs 22 % not estab. Not Available [facility] ([facility]) [address] [facility], [place], [address], 03/08/2024 09:41:10 03/07/20 24 03/08/2024 CBC WITH DIFFE RENTI AL/PL ATELE T monocytes 6 % not estab. Not Available [facility] ([facility]) [address] [facility], [place], [address], 03/08/2024 09:41:10 03/07/20 24 03/08/2024 CBC WITH DIFFE RENTI AL/PL ATELE T eos 3 % not estab. Not Available [facility] ([facility]) [address] [facility], [place], [address], 03/08/2024 09:41:10 03/07/20 24 03/08/2024 CBC WITH DIFFE RENTI AL/PL ATELE T basos 1 % not estab. Not Available [facility] ([facility]) [address] [facility], [place], [address], 03/08/2024 09:41:10 03/07/20 24 03/08/2024 CBC WITH DIFFE RENTI AL/PL ATELE T immature cells CHEMICAL UNIT OPERATOR Not Available [facility] ([facility]) [address] [place], [address], 03/08/2024 09:41:10 03/07/20 24 03/08/2024 CBC WITH DIFFE RENTI AL/PL ATELE T neutrophils (absolute) 7.0 x10e3 /uL 1.4-7. 0 Not Available [facility] ([facility]) [address] [place], [address], 03/08/2024 09:41:10 03/07/20 24 03/08/2024 CBC WITH DIFFE RENTI AL/PL ATELE T lymphs (absolute) 2.3 x10e3 /uL 0.7-3. 1 Not Available [facility] ([facility]) [address] [place], [address], 03/08/2024 09:41:10 03/07/20 24 03/08/2024 CBC WITH DIFFE RENTI AL/PL ATELE T monocytes(ab solute) 0.6 x10e3 /uL 0.1-0. 9 Not Available [facility] ([facility]) [address] [place], [address], 03/08/2024 09:41:10 03/07/20 24 03/08/2024 CBC WITH DIFFE RENTI AL/PL ATELE T eos (absolute) 0.3 x10e3 /uL 0.0-0. 4 Not Available [facility] ([facility]) [address] [place], [address], 03/08/2024 09:41:10 03/07/20 24 03/08/2024 CBC WITH DIFFE RENTI AL/PL ATELE T baso (absolute) 0.1 x10e3 /uL 0.0-0. 2 Not Available [facility] ([facility]) [address] [place], [address], 03/08/2024 09:41:10 03/07/20 24 03/08/2024 CBC WITH DIFFE RENTI AL/PL ATELE T immature granulocytes 1 % not estab. Not Available [facility] ([facility]) [address] [facility], [place], [address], 03/08/2024 09:41:10 03/07/20 24 03/08/2024 CBC WITH DIFFE RENTI AL/PL ATELE T immature grans (abs) 0.1 x10e3 /uL 0.0-0. 1 Not Available [facility] ([facility]) [address] [facility], [place], [address], 03/08/2024 09:41:10 03/07/20 24 03/08/2024 CBC WITH DIFFE RENTI AL/PL ATELE T NRBC CHEMICAL UNIT OPERATOR Not Available [facility] ([facility]) [address] [facility], [place], [address], 03/08/2024 09:41:10 03/07/20 24 03/08/2024 CBC WITH DIFFE RENTI AL/PL ATELE T hematology comments: CHEMICAL UNIT OPERATOR Not Available [facility] ([facility]) [address] [facility], [place], [address], 03/08/2024 09:41:10 03/07/20 24 03/08/2024 COMP. METAB OLIC PANEL (14) glucose 85 mg/dL 70-99 Not Available [facility] ([facility]) [address] [facility], [place], [address], 03/08/2024 09:41:10 03/07/20 24 03/08/2024 COMP. METAB OLIC PANEL (14) BUN 23 mg/dL 6-24 Not Available [facility] ([facility]) [address] [facility], [place], [address], 03/08/2024 09:41:10 03/07/20 24 03/08/2024 COMP. METAB OLIC PANEL (14) creatinine 1.21 mg/dL 0.76-1 .27 Not Available [facility] ([facility]) [address], [place], [address], 03/08/2024 09:41:10 03/07/20 24 03/08/2024 COMP. METAB OLIC PANEL (14) BUN/creatini ne ratio 19 9-20 Not Available [facility] ([facility]) [address], [place], [address], 03/08/2024 09:41:10 03/07/20 24 03/08/2024 COMP. METAB OLIC PANEL (14) sodium 141 mmol/ L 134-14 4 Not Available [facility] ([facility]) [address] [facility], [place], [address], 03/08/2024 09:41:10 03/07/20 24 03/08/2024 COMP. METAB OLIC PANEL (14) potassium 4.3 mmol/ L 3.5-5. 2 Not Available [facility] ([facility]) [address] [facility], [place], [address], 03/08/2024 09:41:10 03/07/20 24 03/08/2024 COMP. METAB OLIC PANEL (14) chloride 103 mmol/ L 96-106 Not Available [facility] ([facility]) [address] [facility], [place], [address], 03/08/2024 09:41:10 03/07/20 24 03/08/2024 COMP. METAB OLIC PANEL (14) carbon dioxide, total 23 mmol/ L 20-29 Not Available [facility] ([facility]) [address] [facility], [place], [address], 03/08/2024 09:41:10 03/07/20 24 03/08/2024 COMP. METAB OLIC PANEL (14) calcium 9.5 mg/dL 8.7-10 .2 Not Available [facility] ([facility]) [address] [facility], [place], [address], 03/08/2024 09:41:10 03/07/20 24 03/08/2024 COMP. METAB OLIC PANEL (14) protein, total 7.1 g/dL 6.0-8. 5 Not Available [facility] ([facility]) [address] [facility], [place], [address], 03/08/2024 09:41:10 03/07/20 24 03/08/2024 COMP. METAB OLIC PANEL (14) albumin 4.7 g/dL 3.8-4. 9 Not Available [facility] ([facility]) [address] [facility], [place], [address], 03/08/2024 09:41:10 03/07/20 24 03/08/2024 COMP. METAB OLIC PANEL (14) globulin, total 2.4 g/dL 1.5-4. 5 Not Available [facility] ([facility]) [address] [facility], [place], [address], 03/08/2024 09:41:10 03/07/20 24 03/08/2024 COMP. METAB OLIC PANEL (14) bilirubin, total 0.7 mg/dL 0.0-1. 2 Not Available [facility] ([facility]) [address] [facility], [place], [address], 03/08/2024 09:41:10 03/07/20 24 03/08/2024 COMP. METAB OLIC PANEL (14) alkaline phosphatase 82 IU/L 44-121 Not Available [facility] ([facility]) [address] [facility], [place], [address], 03/08/2024 09:41:10 03/07/20 24 03/08/2024 COMP. METAB OLIC PANEL (14) AST (SGOT) 41 IU/L 0-40 above high normal Not Available [facility] ([facility]) [address] [facility], [place], [address], 03/08/2024 09:41:10 03/07/20 24 03/08/2024 COMP. METAB OLIC PANEL (14) ALT (SGPT) 52 IU/L 0-44 above high normal Not Available [facility] ([facility]) [address] [facility] [place], [address], 03/08/2024 09:41:10 03/07/20 24 03/08/2024 LIPID PANEL cholesterol, total 138 mg/dL 100-19 9 Not Available [facility] ([facility]) [address] [place], [address], 03/08/2024 09:41:11 03/07/20 24 03/08/2024 LIPID PANEL triglyceride s 658 mg/dL 0-149 alert high Not Available [facility] ([facility]) [address] [place], [address], 03/08/2024 09:41:11 03/07/20 24 03/08/2024 LIPID PANEL HDL cholesterol 20 mg/dL >39 below low normal Not Available [facility] ([facility]) [address] [place], [address], 03/08/2024 09:41:11 03/07/20 24 03/08/2024 LIPID PANEL VLDL cholesterol brooke 89 mg/dL 5-40 above high normal Not Available [facility] ([facility]) [address] [place], [address], 03/08/2024 09:41:11 03/07/20 24 03/08/2024 LIPID PANEL LDL chol calc ([facility]) 29 mg/dL 0-99 Not Available [facility] ([facility]) [address] [place], [address], 03/08/2024 09:41:11 03/07/20 24 03/08/2024 LIPID PANEL LDL calc comment: CHEMICAL UNIT OPERATOR Not Available [facility] ([facility]) [address] [place], [address], 03/08/2024 09:41:11 03/07/20 24 03/08/2024 URIC ACID uric acid 6.3 mg/dL 3.8-8. 4 Gina child for gout patie nts: <6.0 Not Available [facility] ([facility]) [address] [facility], [place], [address], 03/08/2024 09:41:11 10/26/19 25 10/25/2024 influ james virus A + B + SARS- CoV-2 (COVI D19) Ag panel , rapid IA, upper respi rator y speci men FLU A positi ve Not Available [facility] [address] [place] [address], [place], [address], 10/25/2024 16:25:19 10/26/19 25 10/25/2024 influ james virus A + B + SARS- CoV-2 (COVI D19) Ag panel , rapid [place], upper respi rator y speci men FLU B negati ve Not Available [facility] [address] [place] [address], [place], [address], 10/25/2024 16:25:19 10/26/19 25 10/25/2024 influ james virus A + B + SARS- CoV-2 (COVI D19) Ag panel , rapid [place], upper respi rator y speci men SARS COV + SARS OV 2 negati ve Not Available [facility] [address] [place] [address], [place], [address], 10/25/2024 16:25:19 09/28/19 24 09/28/2023 LD[facility], chest , [facility] [address] [place] [address] Phone: Fax: Name: SUKHDEEP KNOWLES Exam Date: 09/28/19 24 : [birth year] Age 58 Gender : M Access ion: [id number] Physic collins: DIYA GOLDBERG Facili ty: [facility] Facili ty HSV: Outpat ient Exam: CT LOW DOSE LUNG SCREEN ING LOW DOSE SCREEN ING CT SCAN OF THE CHEST WITHOU T CONTRA ST COMPAR OXANA: 11/28/19 22 HISTOR Y: Curren t smoker with a 70-pac k-year histor y. PROCED URE: Axial images were obtain ed from the lung apex to the mid abdome n by [employer] ed tomogr aphy in a low dose screen ing protoc ol. This study was perfor med with techni ques to keep radiat ion doses as low as reason ablced achiev able, (YING ). CTDI: 2.94 mGy. DLP: 123.32 [...] Donna Lundberg 09/28/19 Thank you for referr ing SUKHDEEP KNOWLES to [facility]. Legall y authen ticate d by JAKE TRUONG 09-28 15:44: 15 CC'ed Logic: Orderi ng Provid er: AMANDA KEANE CC Provid er: AMANDA KEANE Attend ing Provid er: AMANDA Jonasitt ing Provid er: AMANDA lorenzo [facility] [address] , [place], [address], 09/28/2023 18:15:30 Result Notes None recorded. Problems Name Problem SNOMED Code Status Onset Date Resolution Date Notes Provider Name and Address Organization Details Recorded Time Chronic obstructiv e pulmonary disease 68622509 Active Not Available [facility] 3 18:16:37 Coronary arterioscl erosis 67684824 Active Not Available [facility] 3 18:16:37 Chronic pain 57609778 Active Not Available [facility] 3 18:16:37 Insomnia 257206149 Active Not Available [facility] 3 18:16:37 Hypertensi ve disorder 20920301 Active Not Available [facility] 3 18:16:37 Polyp of colon 44640234 Active Not Available [facility] 3 18:16:37 Chronic back pain 213300045 Active 2023 Diya Rosales MD [address] , [place], [address] , [place] - [facility] & [place] 4 16:58:05 Tobacco dependence caused by cigarettes 1007525880041 9107 Active 2023 Diya Rosales MD [address] , [place], [address] , [place] - [facility] & [place] 4 09:47:56 Hyperlipid emia 20478364 Active 2023 Diya Rosales MD [address] , [place], [address] , [place] - [facility] & [place] 4 11:45:38 Gout 98231811 Active [address], [place], [address] [facility] [place] - [facility] & [place] 11:45:45 Problem Notes None recorded. Procedures Surgical History Date Name Laterality Status Provider Name and Address Organization Details Recorded Time 09/28/19 24 low dose computed tomography of chest without contrast completed Mayra MIGUEL - [facility] - [place] [facility] [place] 07/26/2024 16:50:13 03/30/20 22 colonoscopy completed Mayra MIGUEL - [facility] & [place] 07/26/2024 16:53:39 06/23/20 21 Total knee arthroplasty completed Evelyne MIGUEL - [facility] & [place] 08/05/2023 08:03:24 04/10/20 18 catheterization of left heart completed Evelyne MIGUEL - [facility] & [place] 08/05/2023 08:07:40 12/03/19 17 incision and drainage completed Mayra America MIGUEL - [facility] & [place] 07/26/2024 16:57:42 11/25/19 17 incision and drainage completed Mayra America MIGUEL - [facility] & [place] 07/26/2024 16:58:07 Vasectomy completed Evelyne MIGUEL - [facility] & [place] 08/05/2023 08:00:40 debridement by high pressure irrigation completed Evelyne Vincent [place] - [facility] & [place] 08/05/2023 08:01:05 Colonoscopy completed Evelyne MIGUEL - [facility] & [place] 08/05/2023 08:03:11 Ligation of hemorrhoid(s) completed Evelyne Eatonamer [place] - [facility] [place] [facility] [place] 08/05/2023 08:03:59 percutaneous transluminal balloon angioplasty of coarctation of aorta with insertion of stent completed Evelyne Vincent [place] - [facility] [place] [facility] [place] 08/05/2023 08:04:37 procedure completed Evelyne Eatonamer [place] - [facility] - [place] [facility] [place] 08/05/2023 08:05:01 cardiac ventriculography completed Evelyne Vincent [place] - [facility] [place] [facility] [place] 08/05/2023 08:05:58 angiography of coronary artery completed Evelyne MIGUEL - [facility] - [place] [facility] [place] 08/05/2023 08:06:15 percutaneous coronary intervention completed Evelyne AUSTIN - [place] [facility] [place] 08/05/2023 08:06:33 placement of stent in anterior descending branch of left coronary artery completed Evelyne MIGUEL - [facility] - [place] [facility] [place] 08/05/2023 08:06:53 Imaging Results Imaging Date Name Status LastModified by Organiz ation Details LastModified Time 09/28/2023 LDCT, chest, for lung cancer screening completed [facility] [address], [place], [address], 09/28/2023 18:15:30 Procedure Notes None recorded. Medical Equipment None Reported. Allergies Allergen ID Allergen Name Allergen Category Reaction Reaction Severity Criticality Documentation Date Start Date Code Code System Note Provider Name and Address Organization Details Recorded Time 99444 Product containin g 3-hydroxy -3-methyl glutaryl- coenzyme A reductase inhibitor (product) medicatio n nausea Not available Not available 06/12/2022 38203 009 SNOMED Betty Didier mcnulty, MYRI[facility] - [facility] & [place] 14:39:17 Medications Name Sig Start Date Stop [...] Available Not Available Vitals Date Recorded Body weight Body mass index (BMI) Body height Body temperature Heart rate Systolic blood pressure Diastolic blood pressure Provider Name and Address Organization Details Last Updated DateTime 3 178215. 9 g 37.3 kg/m2 182.88 cm 95.5 [degF] 72 /min 121 mm[Hg] 85 mm[Hg] Jenny Singletonbreeoskar [facility] [place] 3 10:12:20 Date Recorded Body height Body mass index (BMI) Body weight Heart rate Systolic blood pressure Diastolic blood pressure Provider Name and Address Organization Details Last Updated DateTime 4 182.88 cm 34.2 kg/m2 966766. 68 g 73 /min 167 mm[Hg] 93 mm[Hg] Teresa Salcidoworth [facility] & [place] 4 16:31:37 Date Recorded Body height Body mass index (BMI) Body weight Heart rate Systolic blood pressure Diastolic blood pressure Provider Name and Address Organization Details Last Updated DateTime 4 182.88 cm 35.1 kg/m2 243752. 42 g 86 /min 150 mm[Hg] 92 mm[Hg] Teresa Salcidoworth MY[facility] & [place] 4 11:24:45 Date Recorded Body height Body mass index (BMI) Body weight Body temperature Provider Name and Address Organization Details Last Updated DateTime 10/25/2024 182.88 cm 35.9 kg/m2 125005.19 g 99.7 [degF] Sayda Garcia [facility] & [place] 10/25/2024 16:24:36 Date Recorded Body height Body mass index (BMI) Body weight Body temperature Systolic blood pressure Diastolic blood pressure Provider Name and Address Organization Details Last Updated DateTime 5 182.88 cm 36.4 kg/m2 810423. 16 g 98.6 [degF] 190 mm[Hg] 125 mm[Hg] Sayda MIGUEL [facility] & [place] 14:12:50 Social History Question Answer Notes LastModified by Organizat ion Details LastModified Time Tobacco Smoking Status Current Every Day Smoker Jenny mcnulty, [facility] & [place] 09/14/2022 10:10:36 Do You Have An Advance [...] Do You Have A Medical Power Of Dry Wall Installer? No Information not available 03/07/2024 What Was [...] Anxious, Or Unable To Sleep At Night)? [id number] Information not available 03/01/2024 Do You Use [...] available 2022 07:55:02 Unspecified Relation Diabetes mellitus [email or web address] Not available 04/2025 13:37:27 Unspecified Relation Hyperlipidem ia [email or web address] Not available 04/2025 13:37:27 Unspecified Relation Hypertensive disorder [email or web address] Not available 2023 09:46:43 Unspecified Relation Gout Not available 11/29 13:37:27 Medical History Condition Response Coronary Artery Disease Y None N Gout Y Kidney Stones N Hyperthyroidism N Depression N COPD Y Hypothyroidism N Anemia N MRSA exposure N Difficulty Swallowing N Heart Attack (NC) Y Anxiety Disorder N Meniere's disease N Diabetes N Obesity Y Arthritis Y Mental Disorder N Tuberculosis N AIDS/HIV N Congestive Heart Failure (CHF) N Cancer Y Stroke N Diverticulitis Y Asthma N Reflux/GERD Y Jaundice N High Cholesterol Y Liver Disease N Heart Disease Y Pulmonary Embolism N Fibromyalgia N Chronic Ear Infections N Hypertension Y Osteoporosis N Kidney Disease N Immunizations Vaccine Type Date Status Note Provider Nam e and Address Organization Details Recorded Time Tdap 09/03/2023 completed Diya Rosales MD [address] , [place], [address], [facility] - [facility] & [place] 09/06/2023 12:07:42 COVID-19, mRNA, LNP-S, PF, 100 mcg/0.5mL dose or 50 mcg/0.25mL dose 12/26/2020 completed Evelyne Vincent null, [place] - [facility] & [place] 08/05/2023 07:52:51 COVID-19, mRNA, LNP-S, PF, 100 mcg/0.5mL dose or 50 mcg/0.25mL dose 01/23/2021 completed Evelyne Vincent null, [place] - [facility] [place] [facility] [place] 08/05/2023 07:52:51 COVID-19, mRNA, LNP-S, PF, 100 mcg/0.5mL dose or 50 mcg/0.25mL dose 08/01/2021 completed Evelyne Vincent null, [place] - [facility] - [place] [facility] [place] 08/05/2023 07:52:51 Past Encounters Encounter ID Performer Location Encounter Start Date Encounter Closed Date Diagnosis/Indication Diagnosis SNOMED-CT Code Diagnosis ICD10 Code Diagnosis Note [id number] MD William Garcia and Jazmine Baez [place] [id number] 09/14/2022 10:02:59 09/14/2022 11:49:15 Hypertensive disorder 55791098 I10 Continue current medication s at this time. Chronic ob structive pulmonary disease 87096689 J44.9 Coronary arteriosclerosis 11593552 I25.10 Continues to follow with Cardiology . Shoulder pain 15064019 M 25.519 Referring to orthopedic s to discuss possible cortisone injections . Adult heal th examination 111520542 Z00.00 Routine anticipato ry guidance given. [id number] MD William Garcia and [address] Jazmine Zuniga [place] [id number] 09/03/2023 16:06:53 09/03/2023 17:10:49 Gout 91709449 M10.9 Adult heal th examination [id number] Z00.00 Routine anticipato ry guidance given. Active immunization 3387 9002 Z23 Chronic back pain 677798 002 M54.9 Continues to follow with chiropract or. Tobacco de pendence caused by cigarettes [id number] F17.286 [id number] MD William Garcia and [address] [place] [id number] 03/07/2024 10:27:29 03/07/2024 11:53:47 Chronic pain 57278273 G89.29 Chronic back pain 065925 002 M54.9 Continues to follow with chiropract or. Hypertensive disorder 38 838193 I10 Continue current medication s at this time. Coronary arteriosclerosis 46297127 I25.10 Continue current medication s at this time. Hyperlipidemia 59623771 E78.5 Gout 86684829 M10.9 [id number] Anjel Yang and [address] [place] [id number] 11/29/2024 13:37:20 11/29/2024 15:07:20 History and physical examination, annual for health maintenance 72278362 Z00.00 Routine anticipato ry guidance given. Gout 37977718 M10.9 Hypertensive disorder 38 561837 I10 Given a weeks worth of Edarbiclor to take until he sees cardiology next week. Hyperlipidemia 89917788 E78.5 Will start OTC fish oil capsules. Has appt with cardiology next week. [id number] MD William Garcia and Marysol n [address] [place] [id number] 10/25/2024 16:11:56 10/25/2024 17:04:18 Influenza caused by Influenza A virus [id number] J09.X2 Health Concerns Section Related Observation LastModified by Organization Detai ls LastModified Time None Recorded Concern Status LastModified by Organization Details LastModified Time None Recorded Advance Directives Directive N: Payers Encounter Date Sequence Insurance Name Policy Number Policy Rogers Covered Member ID Rogers Member ID Guarantor Name 09/14/2022 2 [employer] [facility] (MEDICAID HMO) Sukhdeep Hall [id number] Sukhdeep Hall 09/14/2022 1 [place] Sukhdeep Hall [id number] Sukhdeep Hall 09/03/2023 1 [employer] (MEDICARE REPLACEMENT/ ADVANTAGE - PPO) Sukhdeep Hall [id number] Sukhdeep Hall 03/07/2024 1 [employer] (MEDICARE REPLACEMENT/ ADVANTAGE - PPO) Sukhdeep Hall [id number] Sukhdeep Hall 10/25/2024 1 [employer] (MEDICARE REPLACEMENT/ ADVANTAGE - PPO) Sukhdeep Hall [id number] Sukhdeep Hall Notes Date Note Type Note Provider Name and Address Organization Details Recorded Time 09/14/2022 text/html Here for annual check-up.States he had colonoscopy this past year and was negative. Repeat in 5 years.Had NC in 2018 and had stent placed in [...] cortisone injections if possible. Diya Rosales MD [address] [facility] [address], [place], [address], [facility] [place] & [place] 09/14/2022 21:38:32 09/03/2023 text/html Here for annual check-up. Was last seen a year ago.States he has been to the chiropractor several times in the past 3 weeks for his back pain. Has multiple herniated discs which act up. Has been having increased pain recently. OTC medicines not helping.States he had colonoscopy about 2 years ago and was negative. Repeat in 5 years.Had NC in 2018 and had stent placed in [...] at least 35 years. Diya Rosales MD [address], [place], [address], [facility] & [place] 09/06/2023 12:08:50 03/07/2024 text/html Here for medicin [...] his LDL was 115 at last check.Had NC in 2018 and had stent placed in [...] so he stopped it. Diya Rosales MD [address], [place], [address], [facility] & [place] 03/09/2024 11:06:36 10/25/2024 text/html Has had a cough for the past week. Yesterday, the cough got worse and began having a bad headache. Cough is sometimes productive. Having dry heaves and diarrhea today. Not sure about fevers but has had chills. No one else sick at home Diya Rosales MD [address], [place], [address], [facility] & [place] 10/25/2024 21:24:07
== END 2024-11-27 23:59 | disposition home or self-care (01) ==
PROVIDERS: PCP Pediatrics; Visit Provider Internal Medicine Interventional Cardiology
DX: E78.00 Pure hypercholesterolemia, unspecified (principal)
CPT/HCPCS: 36415; 80061; 80076